=== PATIENT | male | born 1980 | race Hispanic/Latino ===

== ENCOUNTER 2019-10-04 11:33 | Emergency (ER) | payer MEDICARE ==
[2019-10-04 11:51] VITALS: BP 119/72
--- NOTE | 2019-10-04 12:25 | Emergency Department Report ---
ED Medical Clearance HPI - General Chief complaint: Medical Clearance Stated complaint: EVAL Time Seen by Provider: 10/04/19 12:03 Source: patient, EMS Mode of arrival: Ambulatory - History of Present Illness Initial comments: This is a 39-year-old male nontoxic, well nourished in appearance, no acute signs of distress presents to the ED for a medical clearance for [place]. Patient was sent to receive blood work and urine to be medically cleared. Denies any URI symptoms. Patient denies any suicidal or homicidal ideation. Patient otherwise denies any symptoms. Patient denies any chest pain, shortness of breath, fever, chills, nausea, vomiting, headache, stiff neck, numbness or tingling. Patient denies any psych conditions currently. MD Complaint: medical clearance request Alledged Intoxication: No Compliant with Home Medications: Yes Traumatic Symptoms: denies traumatic injury Associated Symptoms: denies other symptoms. denies: chest pain, shortness of breath, palpitations, diaphoresis, confusion, cough, fever/chills, headaches, an orexia, malaise, nausea/vomiting, rash, seizure, syncope, weakness Home medications: Previous Rx's Medication Instructions Recorded Last Taken Type FLUoxetine HCL [FLUoxetine] 20 mg PO DAILY #7 tablet 10/04/19 Unknown Rx OLANzapine [Zyprexa] 10 mg PO BID #14 tablet 10/04/19 Unknown Rx hydrOXYzine PAMOATE [Vistaril] 50 mg PO Q12H #14 capsule 10/04/19 Unknown Rx traZODone [Desyrel] 100 mg PO QHS #7 tablet 10/04/19 Unknown Rx Allergies/Adverse reactions: Allergies Allergy/AdvReac Type Severity Reaction Status Date / Time divalproex sodium Allergy Unknown Verified 10/04/19 11:45 [From [facility]] ED Review of Systems ROS: Stated complaint: EVAL Other details as noted in HPI Constitutional: denies: chills, fever Eyes: denies: eye pain, eye discharge, vision change ENT: denies: ear pain, throat pain Respiratory: denies: cough, shortness of breath, wheezing Cardiovascular: denies: chest pain, palpitations Endocrine: no symptoms reported Gastrointestinal: denies: abdominal pain, nausea, diarrhea Genitourinary: denies: urgency, dysuria Musculoskeletal: denies: back pain, joint swelling, arthralgia Skin: denies: rash, lesions Neurological: denies: headache, weakness, paresthesias Psychiatric: denies: anxiety, depression Hematological/Lymphatic: denies: easy bleeding, easy bruising ED Past Medical Hx - Past Medical History Previous Medical History?: No - Surgical History Past Surgical History?: No - Social History Smoking Status: Current Every Day Smoker - Medications Home Medications: Home Medications Medication Instructions Recorded Confirmed Last Taken Type FLUoxetine HCL [FLUoxetine] 20 mg PO DAILY #7 tablet 10/04/19 Unknown Rx OLANzapine [Zyprexa] 10 mg PO BID #14 tablet 10/04/19 Unknown Rx hydrOXYzine PAMOATE [Vistaril] 50 mg PO Q12H #14 capsule 10/04/19 Unknown Rx traZODone [Desyrel] 100 mg PO QHS #7 tablet 10/04/19 Unknown Rx ED Physical Exam - General Limitations: No Limitations General appearance: alert, in no apparent distress - Head Head exam: Present: atraumatic, normocephalic - Eye Eye exam: Present: normal appearance - Neck Neck exam: Present: normal inspection, full ROM. Absent: tenderness, meningismus, lymphadenopathy - Respiratory Respiratory exam: Present: normal lung sounds bilaterally. Absent: respiratory distress, wheezes, rales, rhonchi, stridor, chest wall tenderness, accessory muscle use, decreased breath sounds, prolonged expiratory - Cardiovascular Cardiovascular Exam: Present: regular rate, normal rhythm, normal heart sounds. Absent: irregular rhythm, systolic murmur, diastolic murmur, rubs, gallop - GI/Abdominal GI/Abdominal exam: Present: soft, normal bowel sounds. Absent: distended, tenderness, guarding, rebound, rigid, diminished bowel sounds - Extremities Exam Extremities exam: Present: normal inspection, full ROM, normal capillary refill. Absent: tenderness - Back Exam Back exam: Present: normal inspection, full ROM. Absent: tenderness, CVA tenderness (R), CVA tenderness (L), muscle spasm, paraspinal tenderness, vertebral tenderness, rash noted - Neurological Exam Neurological exam: Present: alert, oriented X3, normal gait - Psychiatric Psychiatric exam: Present: normal affect, normal mood - Skin Skin exam: Present: warm, dry, intact, normal color. Absent: rash ED Course Vital Signs 10/04/19 11:50 Temperature 98.2 F Pulse Rate 96 H Respiratory 18 Rate Blood Pressure 119/72 O2 Sat by Pulse 94 Oximetry - Reevaluation(s) Reevaluation #1: 10/04/19 12:29 Patient is speaking in full sentences with no signs of distress noted. ED Medical Decision Making - Lab Data Result diagrams: 10/04/19 12:11 10/04/19 12:11 - Medical Decision Making Patient presents with a medical clearance for [place]. Patient is stable and was examined by me. Marleny West Carroll from [place] has been contacted and was instructed patient is medically clear. Patient's labs are unremarkable. Urine obtained. Patient is not suicidal or homicidal ideation. Patient was instructed to follow-up with a primary care doctor in 3-5 days or if symptoms worsen and continue return to emergency room as soon as possible. At time of discharge, the patient does not seem toxic or ill in appearance. No acute signs of distress noted. Patient agrees to discharge treatment plan of care. No further questions noted by the patient. Patient requested for psych medication refill. Dr. Alvarez consulted and to prescribed for 1 week. ED Disposition Clinical Impression: Medical clearance for psychiatric admission Disposition: DC/TX-65 PSY HOSP/PSY UNIT Is pt being admited?: No Does the pt Need Aspirin: No Condition: Stable Additional Instructions: Follow-up with a primary care doctor in 3-5 days or if symptoms worsen and continue return to emergency room as soon as possible. Prescriptions: traZODone [Desyrel] 100 mg PO QHS #7 tablet FLUoxetine HCL [FLUoxetine] 20 mg PO DAILY #7 tablet hydrOXYzine PAMOATE [Vistaril] 50 mg PO Q12H #14 capsule OLANzapine [Zyprexa] 10 mg PO BID #14 tablet Referrals: BRAIN HONG MD [Primary Care Provider] - 3-5 Days DOUG BARRON MD [Staff Physician] - 3-5 Days
[2019-10-04 12:50] LABS: Basophils # (Auto) 0.1 K/mm3 (0.0-0.1); Basophils % (Auto) 0.9 % (0.0-1.8); Eosinophils # (Auto) 0.1 K/mm3 (0.0-0.4); Eosinophils % (Auto) 1.1 % (0.0-4.3); Lymphocytes # (Auto) 2.2 K/mm3 (1.2-5.4); Lymphocytes % (Auto) 29.6 % (13.4-35.0); Mean Corpuscular HGB Conc 35 % (32-34); Mean Corpuscular Volume 91 fl (84-94); Monocytes # (Auto) 0.8 K/mm3 (0.0-0.8); Monocytes % (Auto) 11.5 % (0.0-7.3); Platelet Count 185 K/mm3 (140-440); Red Blood Count 5.78 M/mm3 (3.65-5.03); Red Cell Distribution Width 13.5 % (13.2-15.2)
[2019-10-04 12:51] LABS: Hematocrit 52.4 % (35.5-45.6); Hemoglobin 18.5 gm/dl (11.8-15.2)
[2019-10-04 13:03] LABS: Bilirubin,Urine NEG (Negative); Blood,Urine NEG (Negative); Color,Urine Yellow (Yellow); Mucus,Urine 1+ /HPF; Protein,Urine <15 mg/dL mg/dL (Negative)
[2019-10-04 13:10] LABS: BUN/Creatinine Ratio 16; Blood Urea Nitrogen 11 mg/dL (9-20); Calcium 9.5 mg/dL (8.4-10.2); Hemolysis Index 10
[2019-10-04 13:11] LABS: Amphetamine Screen,Urine PRESUMPTIVE NEGATIVE; Benzodiazepines Screen,Urine PRESUMPTIVE NEGATIVE; Cannabinoid Screen,Urine PRESUMPTIVE NEGATIVE; Cocaine Screen,Urine PRESUMPTIVE NEGATIVE; Methadone Screen,Urine PRESUMPTIVE NEGATIVE; Opiate Screen,Urine PRESUMPTIVE NEGATIVE
== END 2019-10-04 15:31 ==
LOC: ED 11:33
DX: Z00.00 Encounter for general adult medical examination without abnormal findings (principal); Z79.899 Other long term (current) drug therapy; F17.200 Nicotine dependence, unspecified, uncomplicated; Z88.6 Allergy status to analgesic agent
CPT/HCPCS: 36415; 80048; 80307; 80320; 81001; 85025; G0480

== ENCOUNTER 2019-10-23 03:27 | Emergency (ER) | payer MEDICARE ==
[2019-10-23 04:46] LABS: BUN/Creatinine Ratio 14; Blood Urea Nitrogen 10 mg/dL (9-20); Calcium 9.3 mg/dL (8.4-10.2); Hemolysis Index 14
--- NOTE | 2019-10-23 04:46 | Emergency Department Report ---
<TIMMY AGUILAR - Last Filed: 10/23/19 05:09> ED Psych HPI - General Chief Complaint: Psych Stated Complaint: ANXIETY, COUGH Time Seen by Provider: 10/23/19 04:33 Source: patient, EMS, old records reviewed Mode of arrival: Ambulatory Limitations: No Limitations - History of Present Illness Initial Comments: Mr. Power is a 39 yo male who presents with "a mental breakdown". He informed nurse that he "needs to go to a mental hospital." He denies SI or HI. He denies hallucinations. Recenly, Mr. Power was referred to this ED for medical clearance in order to reside at the [facility]. Home Medications include: Fluoxetine Olanzapine Hydroxyzine Trazodone Complaint: other ("mental breakdown") -: unknown Associated Psychiatric Symptoms: none Quality: constant Improves With: none Worsens With: none Context: other (recently moved to assisted living facility) Treatments Prior to Arrival: none - Related Data Previous Rx's Medication Instructions Recorded Last Taken Type FLUoxetine HCL [FLUoxetine] 20 mg PO DAILY #7 tablet 10/04/19 Unknown Rx OLANzapine [Zyprexa] 10 mg PO BID #14 tablet 10/04/19 Unknown Rx hydrOXYzine PAMOATE [Vistaril] 50 mg PO Q12H #14 capsule 10/04/19 Unknown Rx traZODone [Desyrel] 100 mg PO QHS #7 tablet 10/04/19 Unknown Rx Allergies Allergy/AdvReac Type Severity Reaction Status Date / Time divalproex sodium Allergy Unknown Verified 10/04/19 11:45 [From Depakote] quetiapine [From Seroquel] Allergy Unknown Verified 10/23/19 03:43 ED Review of Systems Comment: All other systems reviewed and negative Constitutional: denies: fever, malaise Cardiovascular: denies: chest pain Gastrointestinal: denies: nausea Psychiatric: denies: auditory hallucinations, visual hallucinations, homicidal thoughts, suicidal thoughts ED Past Medical Hx - Past Medical History Previous Medical History?: No - Surgical History Past Surgical History?: No - Social History Smoking Status: Never Smoker Substance Use Type: None - Medications Home Medications: Home Medications Medication Instructions Recorded Confirmed Last Taken Type FLUoxetine HCL [FLUoxetine] 20 mg PO DAILY #7 tablet 10/04/19 Unknown Rx OLANzapine [Zyprexa] 10 mg PO BID #14 tablet 10/04/19 Unknown Rx hydrOXYzine PAMOATE [Vistaril] 50 mg PO Q12H #14 capsule 10/04/19 Unknown Rx traZODone [Desyrel] 100 mg PO QHS #7 tablet 10/04/19 Unknown Rx ED Physical Exam - General Limitations: No Limitations General appearance: alert, in no apparent distress - Head Head exam: Present: atraumatic, normocephalic - Eye Eye exam: Present: normal appearance - ENT ENT exam: Present: mucous membranes moist - Neck Neck exam: Present: normal inspection, full ROM - Respiratory Respiratory exam: Present: normal lung sounds bilaterally. Absent: respiratory distress, wheezes, rales, rhonchi - Cardiovascular Cardiovascular Exam: Present: regular rate, normal rhythm, normal heart sounds. Absent: systolic murmur, diastolic murmur, rubs, gallop - GI/Abdominal GI/Abdominal exam: Present: soft, normal bowel sounds. Absent: distended, tenderness, guarding, rebound - Rectal Rectal exam: Present: deferred - Extremities Exam Extremities exam: Present: normal inspection - Back Exam Back exam: Present: normal inspection - Neurological Exam Neurological exam: Present: alert, oriented X3 - Psychiatric Psychiatric exam: Present: normal mood - Skin Skin exam: Present: warm, dry, intact, normal color. Absent: rash ED Medical Decision Making - Lab Data Result diagrams: 10/23/19 04:02 10/23/19 04:02 - Medical Decision Making Mr. Power is calm, cooperative. Desires to sleep. Unclear why he desires to be admitted to inpatient psychiatric facility. He is currently medically clear for psychiatric care. Awaiting recommendations from our psychiatric team. I have reviewed labs which are within normal limits. ED Disposition Clinical Impression: Mental health disorder, Schizophrenia Disposition: DC-07 LEFT AGAINST MED ADVICE Condition: Stable Instructions: Cor Pulmonale (ED), Acute Gouty Arthritis (ED), Chronic Hypertension (ED), Hypertensive Crisis (ED) Referrals: PRIMARY CARE, [Primary Care Provider] - 3-5 Days <JUAN LINK - Last Filed: 10/24/19 11:44> ED Review of Systems ROS: Stated complaint: ANXIETY, COUGH Other details as noted in HPI ED Course Vital Signs 10/23/19 10/23/19 04:18 16:05 Temperature 97.1 F L 97.8 F Pulse Rate 69 72 Respiratory 16 18 Rate Blood Pressure 124/70 115/62 [Right] O2 Sat by Pulse 97 96 Oximetry ED Medical Decision Making - Lab Data Result diagrams: 10/23/19 04:02 10/23/19 04:02 - Medical Decision Making Patient is 39 years old male with no significant past medical history. Patient admitted to the ER for evaluation of mental health breakdown. Patient is currently denying any suicidal or homicidal ideation. Patient has been evaluated by our psychiatric team and advised patient to be discharge home and to follow-up as an outpatient. Patient is medically and psychiatrically stable for discharge. Critical care attestation.: If time is entered above; I have spent that time in minutes in the direct care of this critically ill patient, excluding procedure time. ED Disposition Is pt being admited?: No
[2019-10-23 04:49] LABS: Basophils # (Auto) 0.1 K/mm3 (0.0-0.1); Basophils % (Auto) 0.7 % (0.0-1.8); Eosinophils # (Auto) 0.2 K/mm3 (0.0-0.4); Eosinophils % (Auto) 1.5 % (0.0-4.3); Hematocrit 48.5 % (35.5-45.6); Hemoglobin 16.7 gm/dl (11.8-15.2); Lymphocytes # (Auto) 2.1 K/mm3 (1.2-5.4); Lymphocytes % (Auto) 20.1 % (13.4-35.0); Mean Corpuscular HGB Conc 34 % (32-34); Mean Corpuscular Volume 94 fl (84-94); Monocytes # (Auto) 0.8 K/mm3 (0.0-0.8); Monocytes % (Auto) 7.9 % (0.0-7.3); Platelet Count 181 K/mm3 (140-440); Red Blood Count 5.17 M/mm3 (3.65-5.03); Red Cell Distribution Width 13.8 % (13.2-15.2)
[2019-10-23 04:56] LABS: Amphetamine Screen,Urine PRESUMPTIVE NEGATIVE; Benzodiazepines Screen,Urine PRESUMPTIVE NEGATIVE; Cannabinoid Screen,Urine PRESUMPTIVE NEGATIVE; Cocaine Screen,Urine PRESUMPTIVE NEGATIVE; Methadone Screen,Urine PRESUMPTIVE NEGATIVE; Opiate Screen,Urine PRESUMPTIVE NEGATIVE
[2019-10-23 04:57] LABS: Bilirubin,Urine NEG (Negative); Blood,Urine NEG (Negative); Color,Urine Straw (Yellow); Protein,Urine <15 mg/dL mg/dL (Negative); Urobilinogen,Urine < 2.0 mg/dL (<2.0); WBC,Urine < 1.0 /HPF (0.0-6.0)
--- NOTE | 2019-10-23 11:53 | Emergency Department Report ---
ED General Adult HPI - General Chief complaint: Psych Stated complaint: ANXIETY, COUGH Time Seen by Provider: 10/23/19 04:33 Source: patient, EMS, old records reviewed Mode of arrival: Ambulatory Limitations: No Limitations - History of Present Illness Initial comments: Age start talking and I would usually just say get a this is a 39-year-old male with X, Y, and Z level of they are here for this they are here for that and just with heparin was due Severity scale (0 -10): 5 Quality: crushing Consistency: constant Improves with: cold therapy, eating (I did hit this your patient states that it only hurts when they are eating greasy foods) - Related Data Previous Rx's Medication Instructions Recorded Last Taken Type FLUoxetine HCL [FLUoxetine] 20 mg PO DAILY #7 tablet 10/04/19 Unknown Rx OLANzapine [Zyprexa] 10 mg PO BID #14 tablet 10/04/19 Unknown Rx hydrOXYzine PAMOATE [Vistaril] 50 mg PO Q12H #14 capsule 10/04/19 Unknown Rx traZODone [Desyrel] 100 mg PO QHS #7 tablet 10/04/19 Unknown Rx Allergies Allergy/AdvReac Type Severity Reaction Status Date / Time divalproex sodium Allergy Unknown Verified 10/04/19 11:45 [From Depakote] quetiapine [From Seroquel] Allergy Unknown Verified 10/23/19 03:43 ED Review of Systems ROS: Stated complaint: ANXIETY, COUGH Other details as noted in HPI Comment: All other systems reviewed and negative Constitutional: denies: fever, malaise Cardiovascular: denies: chest pain Gastrointestinal: denies: nausea Psychiatric: denies: auditory hallucinations, visual hallucinations, homicidal thoughts, suicidal thoughts ED Past Medical Hx - Past Medical History Previous Medical History?: No - Surgical History Past Surgical History?: No - Social History Smoking Status: Never Smoker Substance Use Type: None - Medications Home Medications: Home Medications Medication Instructions Recorded Confirmed Last Taken Type FLUoxetine HCL [FLUoxetine] 20 mg PO DAILY #7 tablet 10/04/19 Unknown Rx OLANzapine [Zyprexa] 10 mg PO BID #14 tablet 10/04/19 Unknown Rx hydrOXYzine PAMOATE [Vistaril] 50 mg PO Q12H #14 capsule 10/04/19 Unknown Rx traZODone [Desyrel] 100 mg PO QHS #7 tablet 10/04/19 Unknown Rx ED Physical Exam - General Limitations: No Limitations General appearance: alert, in no apparent distress - Head Head exam: Present: atraumatic, normocephalic - Eye Eye exam: Present: normal appearance, PERRL, EOMI. Absent: conjunctival injecti on, nystagmus, periorbital swelling, periorbital tenderness - ENT ENT exam: Present: mucous membranes moist - Neck Neck exam: Present: normal inspection - Respiratory Respiratory exam: Present: normal lung sounds bilaterally. Absent: respiratory distress, wheezes (The same time you know all all of these are pretty much gives you normal examination just), rales, rhonchi - Cardiovascular Cardiovascular Exam: Present: regular rate, normal rhythm. Absent: systolic murmur, diastolic murmur, rubs, gallop - GI/Abdominal GI/Abdominal exam: Present: soft, normal bowel sounds - Rectal Rectal exam: Present: deferred - Extremities Exam Extremities exam: Present: normal inspection - Back Exam Back exam: Present: normal inspection - Neurological Exam Neurological exam: Present: alert, oriented X3 - Psychiatric Psychiatric exam: Present: normal affect, normal mood - Skin Skin exam: Present: warm, dry, intact, normal color. Absent: rash ED Course Vital Signs 10/23/19 04:18 Temperature 97.1 F L Pulse Rate 69 Respiratory 16 Rate Blood Pressure 124/70 [Right] O2 Sat by Pulse 97 Oximetry ED Medical Decision Making - Lab Data Result diagrams: 10/23/19 04:02 10/23/19 04:02 Lab Results 10/23/19 10/23/19 10/23/19 Range/Units 04:02 04:02 04:02 WBC (4.5-11.0) K/mm3 RBC (3.65-5.03) M/mm3 Hgb (11.8-15.2) gm/dl Hct (35.5-45.6) % MCV (84-94) fl MCH (28-32) pg MCHC (32-34) % RDW (13.2-15.2) % Plt Count (140-440) K/mm3 Lymph % (Auto) (13.4-35.0) % Lake % (Auto) (0.0-7.3) % Eos % (Auto) (0.0-4.3) % Baso % (Auto) (0.0-1.8) % Lymph # (1.2-5.4) K/mm3 Lake # (0.0-0.8) K/mm3 Eos # (0.0-0.4) K/mm3 Baso # (0.0-0.1) K/mm3 Seg Neutrophils % (40.0-70.0) % Seg Neutrophils # (1.8-7.7) K/mm3 Sodium 138 (137-145) mmol/L Potassium 3.7 (3.6-5.0) mmol/L Chloride 99.2 (98-107) mmol/L Carbon Dioxide 26 (22-30) mmol/L Anion Gap 17 mmol/L BUN 10 (9-20) mg/dL Creatinine 0.7 L (0.8-1.5) mg/dL Estimated GFR > 60 ml/min BUN/Creatinine Ratio 14 % Glucose 92 (75-100) mg/dL Calcium 9.3 (8.4-10.2) mg/dL Urine Color (Yellow) Urine Turbidity (Clear) Urine pH (5.0-7.0) Ur Specific [place] (1.003-1.030) Urine Protein (Negative) mg/dL Urine Glucose (UA) (Negative) mg/dL Urine Ketones (Negative) mg/dL Urine Blood (Negative) Urine Nitrite (Negative) Urine Bilirubin (Negative) Urine Urobilinogen (<2.0) mg/dL Ur Leukocyte Esterase (Negative) Urine WBC (Auto) (0.0-6.0) /HPF Urine RBC (Auto) (0.0-6.0) /HPF Salicylates < 0.3 L (2.8-20.0) mg/dL Urine Opiates Screen Urine Methadone Screen Acetaminophen < 5.0 L (10.0-30.0) ug/mL Ur Barbiturates Screen Ur Phencyclidine Scrn Ur Amphetamines Screen U Benzodiazepines Scrn Urine Cocaine Screen U Marijuana (THC) Screen Drugs of Abuse Note Plasma/Serum Alcohol (0-0.07) % 10/23/19 10/23/19 10/23/19 Range/Units 04:02 04:02 04:24 WBC 10.5 (4.5-11.0) K/mm3 RBC 5.17 H (3.65-5.03) M/mm3 Hgb 16.7 H (11.8-15.2) gm/dl Hct 48.5 H (35.5-45.6) % MCV 94 (84-94) fl MCH 32 (28-32) pg MCHC 34 (32-34) % RDW 13.8 (13.2-15.2) % Plt Count 181 (140-440) K/mm3 Lymph % (Auto) 20.1 (13.4-35.0) % Lake % (Auto) 7.9 H (0.0-7.3) % Eos % (Auto) 1.5 (0.0-4.3) % Baso % (Auto) 0.7 (0.0-1.8) % Lymph # 2.1 (1.2-5.4) K/mm3 Lake # 0.8 (0.0-0.8) K/mm3 Eos # 0.2 (0.0-0.4) K/mm3 Baso # 0.1 (0.0-0.1) K/mm3 Seg Neutrophils % 69.8 (40.0-70.0) % Seg Neutrophils # 7.4 (1.8-7.7) K/mm3 Sodium (137-145) mmol/L Potassium (3.6-5.0) mmol/L Chloride (98-107) mmol/L Carbon Dioxide (22-30) mmol/L Anion Gap mmol/L BUN (9-20) mg/dL Creatinine (0.8-1.5) mg/dL Estimated GFR ml/min BUN/Creatinine Ratio % Glucose (75-100) mg/dL Calcium (8.4-10.2) mg/dL Urine Color Straw (Yellow) Urine Turbidity Clear (Clear) Urine pH 6.0 (5.0-7.0) Ur Specific [place] 1.004 (1.003-1.030) Urine Protein <15 mg/dl (Negative) mg/dL Urine Glucose (UA) Neg (Negative) mg/dL Urine Ketones Neg (Negative) mg/dL Urine Blood Neg (Negative) Urine Nitrite Neg (Negative) Urine Bilirubin Neg (Negative) Urine Urobilinogen < 2.0 (<2.0) mg/dL Ur Leukocyte Esterase Neg (Negative) Urine WBC (Auto) < 1.0 (0.0-6.0) /HPF Urine RBC (Auto) 3.0 (0.0-6.0) /HPF Salicylates (2.8-20.0) mg/dL Urine Opiates Screen Urine Methadone Screen Acetaminophen (10.0-30.0) ug/mL Ur Barbiturates Screen Ur Phencyclidine Scrn Ur Amphetamines Screen U Benzodiazepines Scrn Urine Cocaine Screen U Marijuana (THC) Screen Drugs of Abuse Note Plasma/Serum Alcohol < 0.01 (0-0.07) % 10/23/19 Range/Units 04:24 WBC (4.5-11.0) K/mm3 RBC (3.65-5.03) M/mm3 Hgb (11.8-15.2) gm/dl Hct (35.5-45.6) % MCV (84-94) fl MCH (28-32) pg MCHC (32-34) % RDW (13.2-15.2) % Plt Count (140-440) K/mm3 Lymph % (Auto) (13.4-35.0) % Lake % (Auto) (0.0-7.3) % Eos % (Auto) (0.0-4.3) % Baso % (Auto) (0.0-1.8) % Lymph # (1.2-5.4) K/mm3 [place] # (0.0-0.8) K/mm3 Eos # (0.0-0.4) K/mm3 Baso # (0.0-0.1) K/mm3 Seg Neutrophils % (40.0-70.0) % Seg Neutrophils # (1.8-7.7) K/mm3 Sodium (137-145) mmol/L Potassium (3.6-5.0) mmol/L Chloride (98-107) mmol/L Carbon Dioxide (22-30) mmol/L Anion Gap mmol/L BUN (9-20) mg/dL Creatinine (0.8-1.5) mg/dL Estimated GFR ml/min BUN/Creatinine Ratio % Glucose (75-100) mg/dL Calcium (8.4-10.2) mg/dL Urine Color (Yellow) Urine Turbidity (Clear) Urine pH (5.0-7.0) Ur Specific [place] (1.003-1.030) Urine Protein (Negative) mg/dL Urine Glucose (UA) (Negative) mg/dL Urine Ketones (Negative) mg/dL Urine Blood (Negative) Urine Nitrite (Negative) Urine Bilirubin (Negative) Urine Urobilinogen (<2.0) mg/dL Ur Leukocyte Esterase (Negative) Urine WBC (Auto) (0.0-6.0) /HPF Urine RBC (Auto) (0.0-6.0) /HPF Salicylates (2.8-20.0) mg/dL Urine Opiates Screen Presumptive negative Urine Methadone Screen Presumptive negative Acetaminophen (10.0-30.0) ug/mL Ur Barbiturates Screen Presumptive negative Ur Phencyclidine Scrn Presumptive negative Ur Amphetamines Screen Presumptive negative U Benzodiazepines Scrn Presumptive negative Urine Cocaine Screen Presumptive negative U Marijuana (THC) Screen Presumptive negative Drugs of Abuse Note Disclamer Plasma/Serum Alcohol (0-0.07) % - EKG Data -: EKG Interpreted by Ar EKG shows normal: sinus rhythm, axis, intervals, QRS complexes, ST-T waves Rate: normal - EKG Data Interpretation: normal EKG Critical Care Time: No Critical care attestation.: If time is entered above; I have spent that time in minutes in the direct care of this critically ill patient, excluding procedure time. ED Disposition Clinical Impression: Schizophrenia Disposition: DC-07 LEFT AGAINST MED ADVICE Condition: Stable Instructions: Cor Pulmonale (ED), Chronic Hypertension (ED), Hypertensive Crisis (ED), Acute Gouty Arthritis (ED) Referrals: PRIMARY CARE, [Primary Care Provider] - 3-5 Days - Level of Consciousness 1a. Level of Consciousness: alert/keenly responsive - LOC Questions 1b. LOC Questions: answers both correctly - LOC Command 1c. LOC Commands: performs tasks correctly - Best Gaze 2. Best Gaze: normal - Visual 3. Visual: partial hemianopia - Facial Palsy 4. Facial Palsy: minor paralysis - Motor Arm 5a. Motor Arm Left: drift 5b. Motor Arm Right: drift - Motor Leg 6a. Motor Leg Left: no drift 6b. Motor Leg Right: no movement - Limb Ataxia 7. Limb Ataxia: absent - Sensory 8. Sensory: normal - Best Language 9. Best Language: no aphasia - Dysarthria 10. Dysarthria: normal - Extinction and Inattention 11. Extinction/Inattention: no abnormality - Scoring Total Score: 8 Stroke Severity: Moderate Stroke
[2019-10-23 16:07] VITALS: BP 115/62
== END 2019-10-23 18:54 | disposition home or self-care (01) ==
LOC: ED 03:27 → EEVIPCON 03:27 → ED 18:54
DX: F20.89 Other schizophrenia (principal); F99 Mental disorder, not otherwise specified; Z88.6 Allergy status to analgesic agent; Z88.8 Allergy status to other drugs, medicaments and biological substances; Z79.899 Other long term (current) drug therapy
CPT/HCPCS: 36415; 80048; 80307; 80320; 81001; 85025; G0480

== ENCOUNTER 2019-11-14 03:56 | Emergency (ER) | payer MEDICARE ==
[2019-11-14 04:12] VITALS: BP 119/76
[2019-11-14 04:35] LABS: Basophils # (Auto) 0.1 K/mm3 (0.0-0.1); Basophils % (Auto) 1.1 % (0.0-1.8); Eosinophils # (Auto) 0.2 K/mm3 (0.0-0.4); Eosinophils % (Auto) 1.9 % (0.0-4.3); Hematocrit 46.9 % (35.5-45.6); Hemoglobin 16.4 gm/dl (11.8-15.2); Lymphocytes # (Auto) 2.1 K/mm3 (1.2-5.4); Lymphocytes % (Auto) 26.6 % (13.4-35.0); Mean Corpuscular HGB Conc 35 % (32-34); Mean Corpuscular Volume 93 fl (84-94); Monocytes # (Auto) 0.8 K/mm3 (0.0-0.8); Monocytes % (Auto) 10.1 % (0.0-7.3); Platelet Count 182 K/mm3 (140-440); Red Blood Count 5.06 M/mm3 (3.65-5.03); Red Cell Distribution Width 13.7 % (13.2-15.2)
--- NOTE | 2019-11-14 04:38 | Emergency Department Report ---
Chief Complaint: Psych Stated Complaint: MH Time Seen by Provider: 11/14/19 04:34 - HPI History of Present Illness: Patient is a 39-year-old male with schizophrenia who often goes missing who is presenting stated he was having a mental breakdown. When asked what his mental breakdown was he states "I could not stop crying" patient is currently not crying. Patient will not answer where he lives or who he stays with. Patient denies being homicidal suicidal at this time. Our entire conversation the patient was making his she is comfortable for him so that he could lie down and go to bed - ROS Review of Systems: All systems are reviewed and are negative - Exam Vital Signs: Vital Signs 11/14/19 04:00 Temperature 98.7 F Pulse Rate 90 Respiratory 18 Rate Blood Pressure 119/76 O2 Sat by Pulse 96 Oximetry Physical Exam: Patient is in no acute distress. Speaking in full sentences. Lungs clear to auscultation his heart tones are normal. Moving all extremities. MSE screening note: Focused history and physical exam performed. Due to findings the following was ordered: ED Medical Decision Making - Lab Data Result diagrams: 11/14/19 04:15 - Medical Decision Making Patient does not appear to be an mental health crisis at this time. We have contacted [facility] police to ensure that the patient is not missing. Patient will be held here until they arrive but will be discharged. ED Disposition for MSE Clinical Impression: Schizophrenia Qualifiers: Schizophrenia type: unspecified Qualified Code(s): F20.9 - Schizophrenia, unspecified Disposition: Z-07 MED SCREENING EXAM-LEFT Is pt being admited?: No Does the pt Need Aspirin: No Condition: Stable Referrals: PRIMARY CARE, [Primary Care Provider] - 3-5 Days Time of Disposition: 04:38
[2019-11-14 04:59] LABS: BUN/Creatinine Ratio 10; Blood Urea Nitrogen 7 mg/dL (9-20); Calcium 8.8 mg/dL (8.4-10.2); Hemolysis Index 12
== END 2019-11-14 05:05 | disposition left against medical advice (07) ==
LOC: ED 03:56
DX: F20.9 Schizophrenia, unspecified (principal); Z88.8 Allergy status to other drugs, medicaments and biological substances
CPT/HCPCS: 36415; 80048; 80320; 85025; G0480

== ENCOUNTER 2019-11-26 16:04 | Emergency (ER) | payer MEDICARE ==
[2019-11-26 16:09] VITALS: BP 127/76
== END 2019-11-26 17:02 | disposition left against medical advice (07) ==
LOC: ED 16:04
DX: R10.9 Unspecified abdominal pain (principal); Z00.00 Encounter for general adult medical examination without abnormal findings; F31.9 Bipolar disorder, unspecified; Z88.8 Allergy status to other drugs, medicaments and biological substances
CPT/HCPCS: 99282

== ENCOUNTER 2019-11-27 20:13 | Emergency (ER) | payer MEDICARE ==
[2019-11-27 20:56] LABS: Basophils # (Auto) 0.1 K/mm3 (0.0-0.1); Basophils % (Auto) 1.1 % (0.0-1.8); Eosinophils # (Auto) 0.2 K/mm3 (0.0-0.4); Eosinophils % (Auto) 2.2 % (0.0-4.3); Hematocrit 47.6 % (35.5-45.6); Hemoglobin 16.4 gm/dl (11.8-15.2); Lymphocytes # (Auto) 2.5 K/mm3 (1.2-5.4); Lymphocytes % (Auto) 28.8 % (13.4-35.0); Mean Corpuscular HGB Conc 34 % (32-34); Mean Corpuscular Volume 94 fl (84-94); Monocytes # (Auto) 0.8 K/mm3 (0.0-0.8); Monocytes % (Auto) 8.9 % (0.0-7.3); Platelet Count 185 K/mm3 (140-440); Red Blood Count 5.09 M/mm3 (3.65-5.03); Red Cell Distribution Width 13.6 % (13.2-15.2)
[2019-11-27 21:17] LABS: BUN/Creatinine Ratio 9; Blood Urea Nitrogen 6 mg/dL (9-20); Hemolysis Index 15
--- NOTE | 2019-11-27 22:43 | Emergency Department Report ---
<UMM AGUILAR - Last Filed: 11/27/19 22:41> ED Psych HPI - General Chief Complaint: Psych Stated Complaint: MH EVAL/HEARING VOICES Time Seen by Provider: 11/27/19 21:34 Source: patient Mode of arrival: Ambulatory - History of Present Illness Initial Comments: Patient is a 39-year-old male with a past medical history of schizophrenia who he has been off of his medications for several weeks. Patient is having visual and auditory hallucinations. Patient states he he is a loud sound of people crying and sees crying faces. Patient states he feels more confused. He is denying any homicidal suicidal ideations at this time. - Related Data Previous Rx's Medication Instructions Recorded Last Taken Type FLUoxetine HCL [FLUoxetine] 20 mg PO DAILY #7 tablet 10/04/19 Unknown Rx OLANzapine [Zyprexa] 10 mg PO BID #14 tablet 10/04/19 Unknown Rx hydrOXYzine PAMOATE [Vistaril] 50 mg PO Q12H #14 capsule 10/04/19 Unknown Rx traZODone [Desyrel] 100 mg PO QHS #7 tablet 10/04/19 Unknown Rx Allergies Allergy/AdvReac Type Severity Reaction Status Date / Time divalproex sodium Allergy Unknown Verified 10/04/19 11:45 [From Depakote] quetiapine [From Seroquel] Allergy Unknown Verified 10/23/19 03:43 risperidone [From Risperdal] Allergy Unknown Verified 11/27/19 20:16 ED Review of Systems Comment: All other systems reviewed and negative ED Past Medical Hx - Past Medical History Previous Medical History?: Yes Hx Psychiatric Treatment: Yes (bipolar, schizo) - Surgical History Past Surgical History?: No - Social History Smoking Status: Current Every Day Smoker - Medications Home Medications: Home Medications Medication Instructions Recorded Confirmed Last Taken Type FLUoxetine HCL [FLUoxetine] 20 mg PO DAILY #7 tablet 10/04/19 Unknown Rx OLANzapine [Zyprexa] 10 mg PO BID #14 tablet 10/04/19 Unknown Rx hydrOXYzine PAMOATE [Vistaril] 50 mg PO Q12H #14 capsule 10/04/19 Unknown Rx traZODone [Desyrel] 100 mg PO QHS #7 tablet 10/04/19 Unknown Rx ED Physical Exam - General Limitations: No Limitations General appearance: alert, in no apparent distress - Head Head exam: Present: atraumatic, normocephalic - Eye Eye exam: Present: normal appearance - ENT ENT exam: Present: mucous membranes moist - Neck Neck exam: Present: normal inspection - Respiratory Respiratory exam: Present: normal lung sounds bilaterally. Absent: respiratory distress - Cardiovascular Cardiovascular Exam: Present: regular rate, normal rhythm. Absent: systolic m urmur, diastolic murmur, rubs, gallop - GI/Abdominal GI/Abdominal exam: Present: soft, normal bowel sounds. Absent: distended, tenderness, guarding - Rectal Rectal exam: Present: deferred - Extremities Exam Extremities exam: Present: normal inspection - Back Exam Back exam: Present: normal inspection - Neurological Exam Neurological exam: Present: alert, oriented X3 - Psychiatric Psychiatric exam: Present: normal mood, flat affect - Skin Skin exam: Present: warm, dry, intact, normal color. Absent: rash ED Course - Reevaluation(s) Reevaluation #1: 11/27/19 22:42 Patient is a mental health hold at this time. ED Medical Decision Making - Lab Data Result diagrams: 11/27/19 20:41 11/27/19 20:41 Lab Results 11/27/19 11/27/19 11/27/19 Range/Units 20:41 20:41 20:41 WBC (4.5-11.0) K/mm3 RBC (3.65-5.03) M/mm3 Hgb (11.8-15.2) gm/dl Hct (35.5-45.6) % MCV (84-94) fl MCH (28-32) pg MCHC (32-34) % RDW (13.2-15.2) % Plt Count (140-440) K/mm3 Lymph % (Auto) (13.4-35.0) % [place] % (Auto) (0.0-7.3) % Eos % (Auto) (0.0-4.3) % Baso % (Auto) (0.0-1.8) % Lymph # (1.2-5.4) K/mm3 [place] # (0.0-0.8) K/mm3 Eos # (0.0-0.4) K/mm3 Baso # (0.0-0.1) K/mm3 Seg Neutrophils % (40.0-70.0) % Seg Neutrophils # (1.8-7.7) K/mm3 Sodium 135 L (137-145) mmol/L Potassium 3.7 (3.6-5.0) mmol/L Chloride 99.8 (98-107) mmol/L Carbon Dioxide 26 (22-30) mmol/L Anion Gap 13 mmol/L BUN 6 L (9-20) mg/dL Creatinine 0.7 L (0.8-1.5) mg/dL Estimated GFR > 60 ml/min BUN/Creatinine Ratio 9 % Glucose 89 (75-100) mg/dL Calcium 9.0 (8.4-10.2) mg/dL Salicylates < 0.3 L (2.8-20.0) mg/dL Acetaminophen < 5.0 L (10.0-30.0) ug/mL Plasma/Serum Alcohol (0-0.07) % 11/27/19 11/27/19 Range/Units 20:41 20:41 WBC 8.6 (4.5-11.0) K/mm3 RBC 5.09 H (3.65-5.03) M/mm3 Hgb 16.4 H (11.8-15.2) gm/dl Hct 47.6 H (35.5-45.6) % MCV 94 (84-94) fl MCH 32 (28-32) pg MCHC 34 (32-34) % RDW 13.6 (13.2-15.2) % Plt Count 185 (140-440) K/mm3 Lymph % (Auto) 28.8 (13.4-35.0) % [place] % (Auto) 8.9 H (0.0-7.3) % Eos % (Auto) 2.2 (0.0-4.3) % Baso % (Auto) 1.1 (0.0-1.8) % Lymph # 2.5 (1.2-5.4) K/mm3 [place] # 0.8 (0.0-0.8) K/mm3 Eos # 0.2 (0.0-0.4) K/mm3 Baso # 0.1 (0.0-0.1) K/mm3 Seg Neutrophils % 59.0 (40.0-70.0) % Seg Neutrophils # 5.1 (1.8-7.7) K/mm3 Sodium (137-145) mmol/L Potassium (3.6-5.0) mmol/L Chloride (98-107) mmol/L Carbon Dioxide (22-30) mmol/L Anion Gap mmol/L BUN (9-20) mg/dL Creatinine (0.8-1.5) mg/dL Estimated GFR ml/min BUN/Creatinine Ratio % Glucose (75-100) mg/dL Calcium (8.4-10.2) mg/dL Salicylates (2.8-20.0) mg/dL Acetaminophen (10.0-30.0) ug/mL Plasma/Serum Alcohol < 0.01 (0-0.07) % ED Disposition Clinical Impression: Schizophrenia, Homeless Disposition: - TO HOME OR SELFCARE Condition: Stable Instructions: Schizophrenia (ED) Additional Instructions: Take your current medications as prescribed. Follow-up with your doctor or doctor/clinic provided. Return if symptoms worsen as indicated by your disch arge instructions. Refer to additional mental health resources provided on separate handout. Referrals: PRIMARY CARE, [Primary Care Provider] - 3-5 Days [facility] [Outside] - 3-5 Days [facility] [Provider Group] - 3-5 Days <NAE HUITRON - Last Filed: 11/28/19 11:02> ED Review of Systems ROS: Stated complaint: MH EVAL/HEARING VOICES Other details as noted in HPI ED Course Vital Signs 11/27/19 11/28/19 11/28/19 21:25 02:03 07:31 Temperature 97.9 F 98.4 F 97.6 F Pulse Rate 67 63 70 Respiratory 17 16 20 Rate Blood Pressure 117/72 112/63 108/68 [Right] O2 Sat by Pulse 95 95 98 Oximetry ED Medical Decision Making - Lab Data Result diagrams: 11/27/19 20:41 11/27/19 20:41 - Medical Decision Making Patient seen and evaluated by mental health. Patient with schizophrenia and s tates hallucinations have improved. Patient does not meet 1013 criteria. Please refer to mental health manager support note. Patient will be discharged home to fill his current meds and follow-up as an outpatient. Critical Care Time: No Critical care attestation.: If time is entered above; I have spent that time in minutes in the direct care of this critically ill patient, excluding procedure time. ED Disposition Is pt being admited?: No Does the pt Need Aspirin: No Time of Disposition: 11:01
[2019-11-28] MEDS ORDERED: SODIUM CHLORIDE 0.9% 1000 ML 4,000 ML ONE (01:33)
[2019-11-28 13:45] VITALS: BP 108/68
== END 2019-11-28 11:23 | disposition home or self-care (01) ==
LOC: ED 20:13
DX: F20.9 Schizophrenia, unspecified (principal); F31.9 Bipolar disorder, unspecified; F17.200 Nicotine dependence, unspecified, uncomplicated; Z59.0 Homelessness; Z79.899 Other long term (current) drug therapy; Z88.8 Allergy status to other drugs, medicaments and biological substances
CPT/HCPCS: 36415; 80048; 85025; 99284; J7030; 80320; G0480

== ENCOUNTER 2019-12-05 02:58 | Emergency (ER) | payer MEDICARE ==
[2019-12-05 03:10] VITALS: BP 126/64
[2019-12-05] MEDS ORDERED: ONDANSETRON 4 MG ODT TAB PO ONE (04:02)
[2019-12-05 04:16] LABS: Bilirubin,Urine NEG (Negative); Blood,Urine NEG (Negative); Color,Urine Colorless (Yellow); Protein,Urine <15 mg/dL mg/dL (Negative); RBC,Urine < 1.0 /HPF (0.0-6.0); Urobilinogen,Urine < 2.0 mg/dL (<2.0)
[2019-12-05 04:19] LABS: Basophils # (Auto) 0.1 K/mm3 (0.0-0.1); Basophils % (Auto) 0.7 % (0.0-1.8); Eosinophils # (Auto) 0.1 K/mm3 (0.0-0.4); Eosinophils % (Auto) 1.3 % (0.0-4.3); Hematocrit 50.4 % (35.5-45.6); Hemoglobin 17.6 gm/dl (11.8-15.2); Lymphocytes # (Auto) 2.1 K/mm3 (1.2-5.4); Lymphocytes % (Auto) 22.1 % (13.4-35.0); Mean Corpuscular HGB Conc 35 % (32-34); Mean Corpuscular Volume 93 fl (84-94); Monocytes # (Auto) 0.8 K/mm3 (0.0-0.8); Monocytes % (Auto) 8.1 % (0.0-7.3); Platelet Count 194 K/mm3 (140-440); Red Blood Count 5.45 M/mm3 (3.65-5.03); Red Cell Distribution Width 13.4 % (13.2-15.2)
[2019-12-05 04:41] LABS: Alanine Aminotransferase 10 units/L (7-56); Albumin 4.1 g/dL (3.9-5); BUN/Creatinine Ratio 10; Blood Urea Nitrogen 7 mg/dL (9-20); Calcium 9.3 mg/dL (8.4-10.2); Hemolysis Index 22
[2019-12-05 04:55] LABS: WBC,Urine < 1.0 /HPF (0.0-6.0)
--- NOTE | 2019-12-05 04:59 | Emergency Department Report ---
ED General Adult HPI - General Chief complaint: Abdominal Pain Stated complaint: ABDOMINAL PAIN Time Seen by Provider: 12/05/19 03:48 Source: patient Mode of arrival: Ambulatory Limitations: No Limitations - History of Present Illness Initial comments: Patient is a 39-year-old male presents emergency room with complaints of nausea vomiting that began 3 days ago. He states he is able to tolerate p.o. intake. He denies any diarrhea, abdominal pain, urinary symptoms, fever, hematemesis, hematochezia, melena. He states he had a normal bowel movement today. He denies any past medical history. He states he does not have any allergies to medications. - Related Data Previous Rx's Medication Instructions Recorded Last Taken Type FLUoxetine HCL [FLUoxetine] 20 mg PO DAILY #7 tablet 10/04/19 Unknown Rx OLANzapine [Zyprexa] 10 mg PO BID #14 tablet 10/04/19 Unknown Rx hydrOXYzine PAMOATE [Vistaril] 50 mg PO Q12H #14 capsule 10/04/19 Unknown Rx traZODone [Desyrel] 100 mg PO QHS #7 tablet 10/04/19 Unknown Rx Ondansetron [Zofran Odt] 4 mg PO Q8HR PRN #10 tab.rapdis 12/05/19 Unknown Rx Allergies Allergy/AdvReac Type Severity Reaction Status Date / Time divalproex sodium Allergy Unknown Verified 10/04/19 11:45 [From Depakote] quetiapine [From Seroquel] Allergy Unknown Verified 10/23/19 03:43 risperidone [From Risperdal] Allergy Unknown Verified 11/27/19 20:16 ED Review of Systems ROS: Stated complaint: ABDOMINAL PAIN Other details as noted in HPI Comment: All other systems reviewed and negative ED Past Medical Hx - Past Medical History Previous Medical History?: Yes Hx Psychiatric Treatment: Yes (bipolar, schizo) - Surgical History Past Surgical History?: No - Social History Smoking Status: Current Every Day Smoker Substance Use Type: Alcohol - Medications Home Medications: Home Medications Medication Instructions Recorded Confirmed Last Taken Type FLUoxetine HCL [FLUoxetine] 20 mg PO DAILY #7 tablet 10/04/19 Unknown Rx OLANzapine [Zyprexa] 10 mg PO BID #14 tablet 10/04/19 Unknown Rx hydrOXYzine PAMOATE [Vistaril] 50 mg PO Q12H #14 capsule 10/04/19 Unknown Rx traZODone [Desyrel] 100 mg PO QHS #7 tablet 10/04/19 Unknown Rx Ondansetron [Zofran Odt] 4 mg PO Q8HR PRN #10 tab.rapdis 12/05/19 Unknown Rx ED Physical Exam - General Limitations: No Limitations General appearance: alert, in no apparent distress - Head Head exam: Present: atraumatic, normocephalic - Eye Eye exam: Present: normal appearance - ENT ENT exam: Present: mucous membranes moist - Respiratory Respiratory exam: Present: normal lung sounds bilaterally. Absent: respiratory distress, wheezes, rales, rhonchi, stridor, chest wall tenderness, accessory muscle use, decreased breath sounds, prolonged expiratory - Cardiovascular Cardiovascular Exam: Present: regular rate, normal rhythm, normal heart sounds. Absent: systolic murmur, diastolic murmur, rubs, gallop - GI/Abdominal GI/Abdominal exam: Present: soft, normal bowel sounds. Absent: distended, tenderness, guarding, rebound, rigid - Neurological Exam Neurological exam: Present: alert, oriented X3 - Psychiatric Psychiatric exam: Present: normal affect, normal mood - Skin Skin exam: Present: warm, dry, intact ED Course Vital Signs 12/05/19 12/05/19 03:05 05:29 Temperature 98.1 F Pulse Rate 95 H 85 Respiratory 18 17 Rate Blood Pressure 126/64 O2 Sat by Pulse 96 99 Oximetry ED Medical Decision Making - Lab Data Result diagrams: 12/05/19 03:37 12/05/19 03:37 Lab Results 12/05/19 12/05/19 12/05/19 Range/Units 03:37 03:37 03:41 WBC 9.7 (4.5-11.0) K/mm3 RBC 5.45 H (3.65-5.03) M/mm3 Hgb 17.6 H (11.8-15.2) gm/dl Hct 50.4 H (35.5-45.6) % MCV 93 (84-94) fl MCH 32 (28-32) pg MCHC 35 H (32-34) % RDW 13.4 (13.2-15.2) % Plt Count 194 (140-440) K/mm3 Lymph % (Auto) 22.1 (13.4-35.0) % [place] % (Auto) 8.1 H (0.0-7.3) % Eos % (Auto) 1.3 (0.0-4.3) % Baso % (Auto) 0.7 (0.0-1.8) % Lymph # 2.1 (1.2-5.4) K/mm3 [place] # 0.8 (0.0-0.8) K/mm3 Eos # 0.1 (0.0-0.4) K/mm3 Baso # 0.1 (0.0-0.1) K/mm3 Seg Neutrophils % 67.8 (40.0-70.0) % Seg Neutrophils # 6.6 (1.8-7.7) K/mm3 Sodium 136 L (137-145) mmol/L Potassium 3.7 (3.6-5.0) mmol/L Chloride 99.7 (98-107) mmol/L Carbon Dioxide 23 (22-30) mmol/L Anion Gap 17 mmol/L BUN 7 L (9-20) mg/dL Creatinine 0.7 L (0.8-1.5) mg/dL Estimated GFR > 60 ml/min BUN/Creatinine Ratio 10 % Glucose 83 (75-100) mg/dL Calcium 9.3 (8.4-10.2) mg/dL Total Bilirubin 0.70 (0.1-1.2) mg/dL AST 28 (5-40) units/L ALT 10 (7-56) units/L Alkaline Phosphatase 112 (35-129) units/L Total Protein 7.8 (6.3-8.2) g/dL Albumin 4.1 (3.9-5) g/dL Albumin/Globulin Ratio 1.1 % Lipase (13-60) units/L Urine Color Colorless (Yellow) Urine Turbidity Clear (Clear) Urine pH 6.0 (5.0-7.0) Ur Specific [place] 1.001 L (1.003-1.030) Urine Protein <15 mg/dl (Negative) mg/dL Urine Glucose (UA) Neg (Negative) mg/dL Urine Ketones Neg (Negative) mg/dL Urine Blood Neg (Negative) Urine Nitrite Neg (Negative) Urine Bilirubin Neg (Negative) Urine Urobilinogen < 2.0 (<2.0) mg/dL Ur Leukocyte Esterase Neg (Negative) Urine WBC (Auto) < 1.0 (0.0-6.0) /HPF Urine RBC (Auto) < 1.0 (0.0-6.0) /HPF 12/05/19 Range/Units 04:04 WBC (4.5-11.0) K/mm3 RBC (3.65-5.03) M/mm3 Hgb (11.8-15.2) gm/dl Hct (35.5-45.6) % MCV (84-94) fl MCH (28-32) pg MCHC (32-34) % RDW (13.2-15.2) % Plt Count (140-440) K/mm3 Lymph % (Auto) (13.4-35.0) % [place] % (Auto) (0.0-7.3) % Eos % (Auto) (0.0-4.3) % Baso % (Auto) (0.0-1.8) % Lymph # (1.2-5.4) K/mm3 [place] # (0.0-0.8) K/mm3 Eos # (0.0-0.4) K/mm3 Baso # (0.0-0.1) K/mm3 Seg Neutrophils % (40.0-70.0) % Seg Neutrophils # (1.8-7.7) K/mm3 Sodium (137-145) mmol/L Potassium (3.6-5.0) mmol/L Chloride (98-107) mmol/L Carbon Dioxide (22-30) mmol/L Anion Gap mmol/L BUN (9-20) mg/dL Creatinine (0.8-1.5) mg/dL Estimated GFR ml/min BUN/Creatinine Ratio % Glucose (75-100) mg/dL Calcium (8.4-10.2) mg/dL Total Bilirubin (0.1-1.2) mg/dL AST (5-40) units/L ALT (7-56) units/L Alkaline Phosphatase (35-129) units/L Total Protein (6.3-8.2) g/dL Albumin (3.9-5) g/dL Albumin/Globulin Ratio % Lipase 26 (13-60) units/L Urine Color (Yellow) Urine Turbidity (Clear) Urine pH (5.0-7.0) Ur Specific [place] (1.003-1.030) Urine Protein (Negative) mg/dL Urine Glucose (UA) (Negative) mg/dL Urine Ketones (Negative) mg/dL Urine Blood (Negative) Urine Nitrite (Negative) Urine Bilirubin (Negative) Urine Urobilinogen (<2.0) mg/dL Ur Leukocyte Esterase (Negative) Urine WBC (Auto) (0.0-6.0) /HPF Urine RBC (Auto) (0.0-6.0) /HPF - Medical Decision Making Patient is a 39-year-old male presents emergency room with complaints of nausea vomiting that began 3 days ago. He states he is able to tolerate p.o. intake. He denies any diarrhea, abdominal pain, urinary symptoms, fever, hematemesis, hematochezia, melena. He states he had a normal bowel movement today. He denies any past medical history. He states he does not have any allergies to medications. Vitals are normal. On exam no abdominal tenderness to palpation, no guarding, no rebound, no rigidity, no peritoneal signs, normal bowel sounds. Mucous membranes are moist. Labs are stable. UA without signs of UTI or dehydration. Patient given Zofran ODT. Patient had no further episodes of vomiting while in the emergency department was able to tolerate p.o. intake without difficulty. pt given prescription for zofran. advised pt Please take medication as prescribed as needed. Increase your water intake. Eat a bland diet. Follow-up with a primary care doctor. Follow-up with a GI doctor. Return to the emergency room for any new or worsening symptoms. - Differential Diagnosis gastritis, PUD, GERD, dehydration, pancreatitis, electrolyte disturbance Critical care attestation.: If time is entered above; I have spent that time in minutes in the direct care of this critically ill patient, excluding procedure time. ED Disposition Clinical Impression: Nausea & vomiting Qualifiers: Vomiting type: unspecified Vomiting Intractability: non-intractable Qualified Code(s): R11.2 - Nausea with vomiting, unspecified Disposition: DC-01 TO HOME OR SELFCARE Is pt being admited?: No Does the pt Need Aspirin: No Condition: Stable Instructions: Gastritis (ED) Additional Instructions: Please take medication as prescribed as needed. Increase your water intake. Eat a bland diet. Follow-up with a primary care doctor. Follow-up with a GI doctor. Return to the emergency room for any new or worsening symptoms. Prescriptions: Ondansetron [Zofran Odt] 4 mg PO Q8HR PRN #10 tab.rapdis PRN Reason: Nausea And Vomiting Referrals: DOUG BARRON MD [Staff Physician] - 2-3 Days [facility] [Provider Group] - 2-3 Days [facility] [Outside] - 2-3 Days [facility] [Provider Group] - 2-3 Days Time of Disposition: 04:58 Print Language: BULGARIAN
== END 2019-12-05 05:29 | disposition home or self-care (01) ==
LOC: ED 02:58
DX: R11.2 Nausea with vomiting, unspecified (principal); F25.0 Schizoaffective disorder, bipolar type; Z79.899 Other long term (current) drug therapy; Z88.8 Allergy status to other drugs, medicaments and biological substances; F17.200 Nicotine dependence, unspecified, uncomplicated
CPT/HCPCS: 36415; 80053; 81001; 83690; 85025; Q0162

== ENCOUNTER 2019-12-16 17:51 | Emergency (ER) | payer MEDICARE ==
[2019-12-16 17:57] VITALS: BP 106/60
== END 2019-12-16 19:06 | disposition left against medical advice (07) ==
LOC: ED 17:51
DX: R69 Illness, unspecified (principal); Z53.21 Procedure and treatment not carried out due to patient leaving prior to being seen by health care provider

== ENCOUNTER 2020-04-13 22:38 | Emergency (ER) | payer MEDICARE | END 2020-04-14 00:25 | disposition left against medical advice (07) | LOC: ED 22:38 | DX: Z53.21 Procedure and treatment not carried out due to patient leaving prior to being seen by health care provider (principal) ==

== ENCOUNTER 2020-05-01 01:48 | Emergency (ER) | payer SELFPAY ==
--- NOTE | 2020-05-01 06:48 | Emergency Department Report ---
HPI - General Chief Complaint: Medical Clearance Time Seen by Provider: 05/01/20 06:33 - HPI HPI: This is a 40-year-old male who presents to the emergency department via EMS for alleged suicidal ideations. The patient was brought in by [place] [id number] after they responded to a local [employer] for the complaint of a 40-year-old male complaining of suicidal ideations. PD was also called out at this location. At that time the reports say that the patient advised that he did have suicidal thoughts but did not have any plan in motion. He has a past medical history of bipolar disorder and schizophrenia. At that time he was found AAO x3, GCS of 15. Patient arrived to the emergency department a little before 2 AM, well before my shift began. At the time of my initial examination the patient is arousable but is very sleepy and is not forthcoming with information. Patient denies any alcohol or drugs on board. ED Past Medical Hx - Past Medical History Previous Medical History?: Yes Hx Psychiatric Treatment: Yes (bipolar, schizo) - Surgical History Past Surgical History?: No - Social History Smoking Status: Never Smoker Substance Use Type: None - Medications Home Medications: Home Medications Medication Instructions Recorded Confirmed Last Taken Type FLUoxetine HCL [FLUoxetine] 20 mg PO DAILY #7 tablet 10/04/19 Unknown Rx OLANzapine [Zyprexa] 10 mg PO BID #14 tablet 10/04/19 Unknown Rx hydrOXYzine PAMOATE [Vistaril] 50 mg PO Q12H #14 capsule 10/04/19 Unknown Rx traZODone [Desyrel] 100 mg PO QHS #7 tablet 10/04/19 Unknown Rx Ondansetron [Zofran Odt] 4 mg PO Q8HR PRN #10 tab.rapdis 12/05/19 Unknown Rx ED Review of Systems ROS: Stated complaint: CHEST PAIN HEARING VOICES Other details as noted in HPI Comment: Unobtainable due to pts medical conditions Physical Exam - Physical Exam Physical Exam: GENERAL: The patient is well-developed well-nourished. HENT: Normocephalic. Atraumatic. Patient has moist mucous membranes. EYES: Extraocular motions are intact. NECK: Supple. Trachea is midline. CHEST/LUNGS: Clear to auscultation. There is no respiratory distress noted. HEART/CARDIOVASCULAR: Regular. There is no tachycardia. ABDOMEN: Abdomen is soft, nontender. Patient has normal bowel sounds. SKIN: Skin is warm and dry. NEURO: The patient is awake, alert, and oriented. The patient is cooperative. Normal speech. MUSCULOSKELETAL: There is no tenderness or deformity. There is no limitation range of motion. ED Medical Decision Making - Lab Data Result diagrams: 05/01/20 06:47 05/01/20 06:47 - Medical Decision Making This patient presents for a mental health evaluation. He does have a psychiatric history but at this time he is calm and appropriate. He has no complaints of suicidal or homicidal ideations. He does not express any acute psychosis. He was seen by the mental health assessment team who agrees that he does not meet criteria for a 1013 or inpatient stabilization. Labs have been unremarkable including CBC, metabolic panel, blood alcohol level. Vital signs have been reassuring throughout his ED course. Critical Care Time: No Critical care attestation.: If time is entered above; I have spent that time in minutes in the direct care of this critically ill patient, excluding procedure time. ED Disposition Clinical Impression: Medical clearance for psychiatric admission, Discharge planning issues, No abnormality detected on mental health assessment Disposition: DC-01 TO HOME OR SELFCARE Is pt being admited?: No Condition: Stable Additional Instructions: Outpatient [facility] Behavioral Health Resources: [facility] [address] [place] [address] / Tuesday thru Tuesday - 8am - 5pm [facility] Address: [address] [place] [address] Tuesday thru Tuesday- 7am-2pm [facility] Address: [address] [place] [address] Tuesday thru Tuesday: 8:30AM-5PM HOMELESS RESOURCES: [facility] NEED HELP? If you are in need of help or know someone who does, please contact us [email or web address] call , or come to our offices at [address] [place] [id number], Tuesday-Tuesday beginning at 8AM. [facility] Admission at 7am Tue to Tue Address: [place] [address] Client Engagement [phone] Regular program admission occurs Tuesday through Tuesday at 7:00 amand operates on a first come, first serve basis.Because we cant anticipate program availability in advance andprogram spots are in high demand, we recommend arriving early. Space fills up fast! Next steps can include: Assignment to a [facility] program bed Connection to and placement in a partner program, or Referral to a partner agency [facility] [place] Admission at 4:30pm daily Address: [place] [address] CRISIS RESOURCES [place] Crisis Line: Suicide Prevention Line: Crisis Text Line: Text START to [phone] Emergency: 911 Referrals: [facility] [Outside] - 2-3 Days [facility] [Provider Group] - 2-3 Days Time of Disposition: 08:32
[2020-05-01 07:21] LABS: Basophils # (Auto) 0.1 K/mm3 (0.0-0.1); Eosinophils # (Auto) 0.2 K/mm3 (0.0-0.4); Eosinophils % (Auto) 2.8 % (0.0-4.3); Hematocrit 42.8 % (35.5-45.6); Hemoglobin 14.4 gm/dl (11.8-15.2); Lymphocytes # (Auto) 2.2 K/mm3 (1.2-5.4); Lymphocytes % (Auto) 30.2 % (13.4-35.0); Mean Corpuscular HGB Conc 34 % (32-34); Mean Corpuscular Volume 92 fl (84-94); Monocytes # (Auto) 0.6 K/mm3 (0.0-0.8); Monocytes % (Auto) 8.6 % (0.0-7.3); Platelet Count 163 K/mm3 (140-440); Red Blood Count 4.67 M/mm3 (3.65-5.03)
[2020-05-01 07:37] LABS: Blood Urea Nitrogen 6 mg/dL (9-20); Calcium 8.9 mg/dL (8.4-10.2); Hemolysis Index 3
[2020-05-01 07:45] VITALS: BP 115/49
[2020-05-01 08:12] LABS: BUN/Creatinine Ratio 9
== END 2020-05-01 09:45 | disposition home or self-care (01) ==
LOC: ED 01:48
DX: R45.851 Suicidal ideations (principal); F25.0 Schizoaffective disorder, bipolar type; Z79.899 Other long term (current) drug therapy; Z04.6 Encounter for general psychiatric examination, requested by authority; Z75.1 Person awaiting admission to adequate facility elsewhere; Z88.8 Allergy status to other drugs, medicaments and biological substances
CPT/HCPCS: 36415; 80048; 80320; 85025; G0480

== ENCOUNTER 2020-05-08 00:43 | Emergency (ER) | payer MEDICAID ==
[2020-05-08 01:13] VITALS: BP 115/60
--- NOTE | 2020-05-08 04:54 | XRay Report ---
CHEST 2 VIEWS INDICATION / CLINICAL INFORMATION: CHEST PAIN. COMPARISON: 12/13/2019 FINDINGS: SUPPORT DEVICES: None. HEART / MEDIASTINUM: No significant abnormality. LUNGS / PLEURA: No significant pulmonary or pleural abnormality. No pneumothorax. ADDITIONAL FINDINGS: No significant additional findings. IMPRESSION: 1. No acute findings. Signer Name: Rakesh Barrett MD Signed: 05/08/2020 4:49 AM Workstation Name: [id number]
--- NOTE | 2020-05-08 06:50 | Emergency Department Report ---
ED General Adult HPI - General Chief complaint: Chest Pain Stated complaint: BILATERAL ARM PAIN Time Seen by Provider: 05/08/20 05:59 Source: patient, EMS Mode of arrival: Ambulatory Limitations: No Limitations - History of Present Illness Initial comments: 40-year-old very thin male presents emerged department complaint complaining of chest pain on his left and right side which tends to fluctuate been off and on for the past few weeks unknown characteristic that he is unable to explain associated with no palliative or provocative factors. Associated Symptoms: chest pain. denies: diaphoresis, fever/chills, loss of appetite, nausea/vomiting, shortness of breath, syncope - Related Data Previous Rx's Medication Instructions Recorded Last Taken Type FLUoxetine HCL [FLUoxetine] 20 mg PO DAILY #7 tablet 10/04/19 Unknown Rx OLANzapine [Zyprexa] 10 mg PO BID #14 tablet 10/04/19 Unknown Rx hydrOXYzine PAMOATE [Vistaril] 50 mg PO Q12H #14 capsule 10/04/19 Unknown Rx traZODone [Desyrel] 100 mg PO QHS #7 tablet 10/04/19 Unknown Rx Ondansetron [Zofran Odt] 4 mg PO Q8HR PRN #10 tab.rapdis 12/05/19 Unknown Rx Allergies Allergy/AdvReac Type Severity Reaction Status Date / Time divalproex sodium Allergy Unknown Verified 12/16/19 17:52 [From Depakote] quetiapine [From Seroquel] Allergy Unknown Verified 12/16/19 17:52 risperidone [From Risperdal] Allergy Unknown Verified 12/16/19 17:52 ED Review of Systems ROS: Stated complaint: BILATERAL ARM PAIN Other details as noted in HPI Comment: All other systems reviewed and negative ED Past Medical Hx - Past Medical History Hx Psychiatric Treatment: Yes (bipolar, schizo) - Social History Smoking Status: Current Every Day Smoker - Medications Home Medications: Home Medications Medication Instructions Recorded Confirmed Last Taken Type FLUoxetine HCL [FLUoxetine] 20 mg PO DAILY #7 tablet 10/04/19 Unknown Rx OLANzapine [Zyprexa] 10 mg PO BID #14 tablet 10/04/19 Unknown Rx hydrOXYzine PAMOATE [Vistaril] 50 mg PO Q12H #14 capsule 10/04/19 Unknown Rx traZODone [Desyrel] 100 mg PO QHS #7 tablet 10/04/19 Unknown Rx Ondansetron [Zofran Odt] 4 mg PO Q8HR PRN #10 tab.rapdis 12/05/19 Unknown Rx ED Physical Exam - General Limitations: No Limitations General appearance: alert, in no apparent distress - Head Head exam: Present: atraumatic, normocephalic - Eye Eye exam: Present: normal appearance - ENT ENT exam: Present: mucous membranes moist - Neck Neck exam: Present: normal inspection - Respiratory Respiratory exam: Present: normal lung sounds bilaterally. Absent: respiratory distress - Cardiovascular Cardiovascular Exam: Present: regular rate, normal rhythm. Absent: systolic murmur, diastolic murmur, rubs, gallop - GI/Abdominal GI/Abdominal exam: Present: soft, normal bowel sounds - Rectal Rectal exam: Present: deferred - Extremities Exam Extremities exam: Present: normal inspection - Back Exam Back exam: Present: normal inspection - Neurological Exam Neurological exam: Present: alert, oriented X3 - Psychiatric Psychiatric exam: Present: normal affect, normal mood - Skin Skin exam: Present: warm, dry, intact, normal color. Absent: rash ED Course Vital Signs 05/08/20 01:07 Temperature 97.6 F Pulse Rate 64 Respiratory 18 Rate Blood Pressure 115/60 O2 Sat by Pulse 97 Oximetry Critical care attestation.: If time is entered above; I have spent that time in minutes in the direct care of this critically ill patient, excluding procedure time. ED Disposition Disposition: - TO HOME OR SELFCARE Condition: Stable Instructions: Nonspecific Chest Pain, Adult, Chest Pain (ED) Referrals: PRIMARY CARE, [Primary Care Provider] - 3-5 Days
== END 2020-05-08 06:40 | disposition home or self-care (01) ==
LOC: ED 00:43
DX: R07.89 Other chest pain (principal); M79.602 Pain in left arm; M79.601 Pain in right arm; F20.9 Schizophrenia, unspecified; F31.9 Bipolar disorder, unspecified; F17.200 Nicotine dependence, unspecified, uncomplicated; Z79.899 Other long term (current) drug therapy; Z88.8 Allergy status to other drugs, medicaments and biological substances
CPT/HCPCS: 71046; 93005

== ENCOUNTER 2020-05-08 23:13 | Emergency (ER) | payer MEDICAID | END 2020-05-08 23:30 | disposition left against medical advice (07) | LOC: ED 23:13 | DX: R07.89 Other chest pain (principal); Z53.21 Procedure and treatment not carried out due to patient leaving prior to being seen by health care provider ==

== ENCOUNTER 2020-05-11 01:44 | Emergency (ER) | payer MEDICAID ==
[2020-05-11 02:46] VITALS: BP 116/63
== END 2020-05-11 07:46 | disposition left against medical advice (07) ==
LOC: ED 01:44
DX: R51.9 Headache, unspecified (principal); Z53.21 Procedure and treatment not carried out due to patient leaving prior to being seen by health care provider

== ENCOUNTER 2020-05-13 04:33 | Emergency (ER) | payer MEDICAID ==
[2020-05-13 05:44] VITALS: BP 120/68
== END 2020-05-13 07:11 ==
LOC: ED 04:33
DX: R07.9 Chest pain, unspecified (principal); Z53.21 Procedure and treatment not carried out due to patient leaving prior to being seen by health care provider

== ENCOUNTER 2020-05-28 19:56 | Emergency (ER) | payer MEDICAID ==
[2020-05-28 21:04] VITALS: BP 126/76
== END 2020-05-28 23:10 | disposition left against medical advice (07) ==
LOC: ED 19:56
DX: R10.9 Unspecified abdominal pain (principal); Z53.21 Procedure and treatment not carried out due to patient leaving prior to being seen by health care provider

== ENCOUNTER 2020-05-30 08:26 | Emergency (ER) | payer MEDICAID ==
[2020-05-30 08:32] VITALS: BP 126/68
== END 2020-05-30 08:30 | disposition left against medical advice (07) ==
LOC: ED 08:26
DX: R10.9 Unspecified abdominal pain (principal); Z53.21 Procedure and treatment not carried out due to patient leaving prior to being seen by health care provider

== ENCOUNTER 2020-08-18 03:57 | Emergency (ER) | payer MEDICARE | END 2020-08-18 04:05 | disposition left against medical advice (07) | LOC: ED 03:57 | DX: Z53.21 Procedure and treatment not carried out due to patient leaving prior to being seen by health care provider (principal) ==

== ENCOUNTER 2020-08-18 14:15 | Emergency (ER) | payer MEDICARE | END 2020-08-18 15:51 | disposition left against medical advice (07) | LOC: ED 14:15 | DX: M79.672 Pain in left foot (principal); Z53.21 Procedure and treatment not carried out due to patient leaving prior to being seen by health care provider ==

== ENCOUNTER 2020-10-29 23:49 | Emergency (ER) | payer MEDICARE ==
[2020-10-30 00:24] VITALS: BP 126/63
[2020-10-30 00:51] LABS: Basophils # (Auto) 0.1 K/mm3 (0.0-0.1); Basophils % (Auto) 0.7 % (0.0-1.8); Eosinophils # (Auto) 0.6 K/mm3 (0.0-0.4); Eosinophils % (Auto) 6.4 % (0.0-4.3); Hematocrit 38.1 % (35.5-45.6); Hemoglobin 13.6 gm/dl (11.8-15.2); Lymphocytes # (Auto) 1.9 K/mm3 (1.2-5.4); Lymphocytes % (Auto) 20.5 % (13.4-35.0); Mean Corpuscular HGB Conc 36 % (32-34); Mean Corpuscular Volume 90 fl (84-94); Monocytes # (Auto) 1.1 K/mm3 (0.0-0.8); Monocytes % (Auto) 11.5 % (0.0-7.3); Platelet Count 146 K/mm3 (140-440); Red Blood Count 4.23 M/mm3 (3.65-5.03); Red Cell Distribution Width 14.2 % (13.2-15.2)
[2020-10-30 01:15] LABS: Alanine Aminotransferase 11 units/L (7-56); Albumin 3.9 g/dL (3.9-5); Blood Urea Nitrogen 13 mg/dL (9-20); Calcium 8.7 mg/dL (8.4-10.2); Hemolysis Index 5
[2020-10-30 01:20] LABS: BUN/Creatinine Ratio 22
--- NOTE | 2020-10-30 01:53 | XRay Report ---
CHEST 2 VIEWS INDICATION: CP. COMPARISON: 05/08/2020 FINDINGS: Support devices: None. Heart: Within normal limits. Lungs/Pleura: No acute air space or interstitial disease. No significant pleural effusion. IMPRESSION: No acute findings. Signer Name: Omar Norton MD Signed: 10/30/2020 1:48 AM Workstation Name: [id number]
--- NOTE | 2020-10-30 12:10 | Electrocardiograph Report ---
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
== END 2020-10-30 01:50 | disposition left against medical advice (07) ==
LOC: ED 23:49
DX: R07.89 Other chest pain (principal); Z53.21 Procedure and treatment not carried out due to patient leaving prior to being seen by health care provider
CPT/HCPCS: 36415; 71046; 80053; 84484; 85025; 93005

== ENCOUNTER 2020-10-30 04:08 | Emergency (ER) | payer MEDICARE ==
[2020-10-30 04:21] VITALS: BP 126/63
== END 2020-10-30 06:35 | disposition home or self-care (01) ==
LOC: ED 04:08
DX: R11.2 Nausea with vomiting, unspecified (principal); F25.0 Schizoaffective disorder, bipolar type; F17.200 Nicotine dependence, unspecified, uncomplicated; Z79.899 Other long term (current) drug therapy
CPT/HCPCS: 36415; 71046; 80053; 80320; 83690; 83735; 84484; 85025; 93005; G0480; Q0162

== ENCOUNTER 2020-10-31 04:39 | Emergency (ER) | payer MEDICARE | END 2020-10-31 05:13 | disposition left against medical advice (07) | LOC: ED 04:39 | DX: R07.9 Chest pain, unspecified (principal); Z53.21 Procedure and treatment not carried out due to patient leaving prior to being seen by health care provider ==

== ENCOUNTER 2020-10-31 23:41 | Emergency (ER) | payer MEDICARE ==
[2020-10-31 23:58] VITALS: BP 121/60
--- NOTE | 2020-11-04 17:35 | Electrocardiograph Report ---
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
== END 2020-11-01 00:48 | disposition left against medical advice (07) ==
LOC: ED 23:41
DX: R07.89 Other chest pain (principal); Z53.21 Procedure and treatment not carried out due to patient leaving prior to being seen by health care provider
CPT/HCPCS: 93005

== ENCOUNTER 2020-12-12 01:10 | Emergency (ER) | payer MEDICARE ==
[2020-12-12 02:39] LABS: Basophils # (Auto) 0.1 K/mm3 (0.0-0.1); Basophils % (Auto) 0.8 % (0.0-1.8); Eosinophils # (Auto) 0.2 K/mm3 (0.0-0.4); Eosinophils % (Auto) 2.1 % (0.0-4.3); Hematocrit 41.4 % (35.5-45.6); Hemoglobin 14.4 gm/dl (11.8-15.2); Lymphocytes # (Auto) 1.9 K/mm3 (1.2-5.4); Lymphocytes % (Auto) 16.9 % (13.4-35.0); Mean Corpuscular HGB Conc 35 % (32-34); Mean Corpuscular Volume 94 fl (84-94); Monocytes # (Auto) 0.8 K/mm3 (0.0-0.8); Monocytes % (Auto) 7.4 % (0.0-7.3); Platelet Count 188 K/mm3 (140-440); Red Cell Distribution Width 14.4 % (13.2-15.2)
[2020-12-12 03:03] LABS: Alanine Aminotransferase 10 units/L (7-56); Blood Urea Nitrogen 6 mg/dL (9-20); Calcium 8.9 mg/dL (8.4-10.2); Hemolysis Index 5
[2020-12-12 03:06] LABS: BUN/Creatinine Ratio 9
--- NOTE | 2020-12-12 03:51 | XRay Report ---
CHEST 2 VIEWS INDICATION / CLINICAL INFORMATION: chest pain. COMPARISON: None available. FINDINGS: SUPPORT DEVICES: None. HEART / MEDIASTINUM: No significant abnormality. LUNGS / PLEURA: Chronic interstitial change and some interstitial nodularity/granulomas change No pne umothorax. ADDITIONAL FINDINGS: No significant additional findings. IMPRESSION: 1. No acute findings. Signer Name: Sid Elkins MD Signed: 12/12/2020 3:46 AM Workstation Name: [id number]
[2020-12-12] MEDS ORDERED: ASPIRIN 325 MG TAB PO ONE (07:33)
--- NOTE | 2020-12-12 07:41 | Emergency Department Report ---
HPI - General Chief Complaint: Chest Pain Time Seen by Provider: 12/12/20 07:26 - HPI HPI: Room 24 The patient is a 40-year-old male present with a chief complaint of chest pain. Patient states he developed pain in the left chest last night has been constant in nature. Patient denies shortness of breath, nausea/vomiting or diaphoresis with this pain. Patient denies history of cough or fever. Patient denies suicidal or homicidal ideation ED Past Medical Hx - Past Medical History Previous Medical History?: Yes Hx Psychiatric Treatment: Yes (bipolar, schizophrenia) - Surgical History Past Surgical History?: No - Family History Family history: no significant - Social History Smoking Status: Never Smoker Substance Use Type: None (Denies illicit drug use) - Medications Home Medications: Home Medications Medication Instructions Recorded Confirmed Last Taken Type FLUoxetine HCL [FLUoxetine] 20 mg PO DAILY #7 tablet 10/04/19 Unknown Rx OLANzapine [Zyprexa] 10 mg PO BID #14 tablet 10/04/19 Unknown Rx hydrOXYzine PAMOATE [Vistaril] 50 mg PO Q12H #14 capsule 10/04/19 Unknown Rx traZODone [Desyrel] 100 mg PO QHS #7 tablet 10/04/19 Unknown Rx Ondansetron [Zofran Odt] 4 mg PO Q8HR PRN #10 tab.rapdis 12/05/19 Unknown Rx Ondansetron [Zofran Odt] 4 mg PO Q6H #20 tab.rapdis 10/30/20 Unknown Rx ED Review of Systems ROS: Stated complaint: CHEST PAIN Other details as noted in HPI Constitutional: denies: diaphoresis, fever Eyes: denies: eye pain ENT: denies: throat pain Respiratory: denies: shortness of breath Cardiovascular: chest pain Endocrine: no symptoms reported Gastrointestinal: denies: nausea, vomiting Genitourinary: denies: dysuria Musculoskeletal: denies: back pain Neurological: denies: headache Psychiatric: denies: homicidal thoughts, suicidal thoughts Physical Exam - Physical Exam Vital Signs: Vital Signs 12/12/20 01:15 Temperature 98 F Pulse Rate 78 Respiratory 16 Rate Blood Pressure 153/78 O2 Sat by Pulse 97 Oximetry Physical Exam: GENERAL: The patient is well-developed well-nourished male lying on stretcher not appearing to be in acute distress. [] HEENT: Normocephalic. Atraumatic. Extraocular motions are intact. Patient has moist mucous membranes. NECK: Supple. Trachea midline CHEST/LUNGS: Clear to auscultation. There is no respiratory distress noted. HEART/CARDIOVASCULAR: Regular. There is no tachycardia. There is no gallop rub or murmur. ABDOMEN: Abdomen is soft, nontender. Patient has normal bowel sounds. There is no abdominal distention. SKIN: There is no rash. There is no edema. There is no diaphoresis. NEURO: The patient is awake, alert, and oriented. The patient is cooperative. The patient has no focal neurologic deficits. The patient has normal speech MUSCULOSKELETAL:There is no evidence of acute injury. ED Course Vital Signs 12/12/20 01:15 Temperature 98 F Pulse Rate 78 Respiratory 16 Rate Blood Pressure 153/78 O2 Sat by Pulse 97 Oximetry ED Medical Decision Making - Lab Data Result diagrams: 12/12/20 01:49 12/12/20 01:49 Laboratory Tests 12/12/20 12/12/20 12/12/20 01:49 01:49 05:00 WBC 11.0 RBC 4.40 Hgb 14.4 Hct 41.4 MCV 94 MCH 33 H MCHC 35 H RDW 14.4 Plt Count 188 Lymph % (Auto) 16.9 [place] % (Auto) 7.4 H Eos % (Auto) 2.1 Baso % (Auto) 0.8 Lymph # (Auto) 1.9 [place] # (Auto) 0.8 Eos # (Auto) 0.2 Baso # (Auto) 0.1 Seg Neutrophils % 72.8 H Seg Neutrophils # 8.0 H D-Dimer Sodium 137 Potassium 3.9 Chloride 102.1 Carbon Dioxide 28 Anion Gap 11 BUN 6 L Creatinine 0.7 L Estimated GFR > 60 BUN/Creatinine Ratio 9 Glucose 93 Calcium 8.9 Total Bilirubin 0.50 AST 23 ALT 10 Alkaline Phosphatase 95 Troponin T < 0.010 < 0.010 Total Protein 7.0 Albumin 4.0 Albumin/Globulin Ratio 1.3 12/12/20 12/12/20 07:14 07:49 WBC RBC Hgb Hct MCV MCH MCHC RDW Plt Count Lymph % (Auto) [place] % (Auto) Eos % (Auto) Baso % (Auto) Lymph # (Auto) [place] # (Auto) Eos # (Auto) Baso # (Auto) Seg Neutrophils % Seg Neutrophils # D-Dimer 262.48 H Sodium Potassium Chloride Carbon Dioxide Anion Gap BUN Creatinine Estimated GFR BUN/Creatinine Ratio Glucose Calcium Total Bilirubin AST ALT Alkaline Phosphatase Troponin T < 0.010 Total Protein Albumin Albumin/Globulin Ratio - EKG Data -: EKG Interpreted by Me EKG shows normal: sinus rhythm Rate: normal - EKG Data When compared to previous EKG there are: no significant change Interpretation: unchanged when compared t - Radiology Data Radiology results: report reviewed (Chest x-ray) - Medical Decision Making Labs and work-up discussed with patient. Explained to him that his D-dimer was elevated and in order to rule out a pulmonary embolus he needs a CT scan. Pat ient verbalized understanding but states he does not wish to have an IV or any further work-up. Patient told should he change his mind return to the hospital for further evaluation. Patient verbalized understanding of increased morbidity and/or mortality should he leave the hospital AGAINST MEDICAL ADVICE. Patient is clear and organized - Differential Diagnosis ACS, PE, pericarditis, GERD Critical care attestation.: If time is entered above; I have spent that time in minutes in the direct care of this critically ill patient, excluding procedure time. ED Disposition Clinical Impression: Chest pain Disposition: DC-07 LEFT AGAINST MED ADVICE Is pt being admited?: No Does the pt Need Aspirin: No Condition: Undetermined Instructions: Nonspecific Chest Pain, Adult Time of Disposition: 09:20 (Patient leaving AMA) Heart Score - HEART Score History: Slightly suspicious EKG: Non-specific Age: < 45 Risk factors: No known risk factors Troponin: < normal limit HEART Score: 1 - EKG Read Time Time EKG Completed: 08:08 EKG Read Time: 08:14
[2020-12-12 10:21] VITALS: BP 106/49
== END 2020-12-12 10:22 | disposition left against medical advice (07) ==
LOC: ED 01:10
DX: R07.89 Other chest pain (principal); F20.9 Schizophrenia, unspecified; F31.9 Bipolar disorder, unspecified; Z79.899 Other long term (current) drug therapy; Z88.8 Allergy status to other drugs, medicaments and biological substances
CPT/HCPCS: 36415; 71046; 80053; 84484; 85025; 85379; 93005

== ENCOUNTER 2020-12-16 19:55 | Emergency (ER) | payer MEDICARE ==
[2020-12-16 20:57] LABS: Blood Urea Nitrogen 8 mg/dL (9-20); Calcium 9.1 mg/dL (8.4-10.2); Hemolysis Index 11
[2020-12-16 20:59] LABS: Basophils # (Auto) 0.1 K/mm3 (0.0-0.1); Basophils % (Auto) 0.8 % (0.0-1.8); Eosinophils # (Auto) 0.3 K/mm3 (0.0-0.4); Eosinophils % (Auto) 3.9 % (0.0-4.3); Hematocrit 41.9 % (35.5-45.6); Hemoglobin 14.4 gm/dl (11.8-15.2); Lymphocytes # (Auto) 2.5 K/mm3 (1.2-5.4); Lymphocytes % (Auto) 31.9 % (13.4-35.0); Mean Corpuscular HGB Conc 34 % (32-34); Mean Corpuscular Volume 94 fl (84-94); Monocytes # (Auto) 0.6 K/mm3 (0.0-0.8); Monocytes % (Auto) 8.1 % (0.0-7.3); Platelet Count 217 K/mm3 (140-440); Red Blood Count 4.46 M/mm3 (3.65-5.03); Red Cell Distribution Width 14.5 % (13.2-15.2)
[2020-12-16 21:03] LABS: BUN/Creatinine Ratio 11
--- NOTE | 2020-12-17 00:28 | Emergency Department Report ---
HPI <JUAN LINK - Last Filed: 12/18/20 11:12> - HPI HPI: 40-year-old male presents via EMS complaining of having bad nerves. He states that he has felt depressed today. He states he is homeless and is very sad. He denies suicidal ideation, homicidal ideation, auditory hallucinations, or visual hallucinations. He denies any physical symptoms or complaints. He denies anxiety. When asked specifically about ulcerations seen to his right dorsal foot, he states that these are from his shoes that he has been using without socks. He denies any trauma to his foot, significant pain, loss of sensory function, focal weakness, or any other symptoms. <ZAN TAYLOR - Last Filed: 12/19/20 09:45> - General Chief Complaint: Psych Time Seen by Provider: 12/16/20 20:54 ED Past Medical Hx <JUAN LINK - Last Filed: 12/18/20 11:12> - Past Medical History Previous Medical History?: Yes Hx Psychiatric Treatment: Yes (bipolar, schizophrenia) - Social History Smoking Status: Never Smoker Substance Use Type: None (Denies illicit drug use) <ZAN TAYLOR - Last Filed: 12/19/20 09:45> - Medications Home Medications: Home Medications Medication Instructions Recorded Confirmed Last Taken Type FLUoxetine HCL [FLUoxetine] 20 mg PO DAILY #7 tablet 10/04/19 Unknown Rx OLANzapine [Zyprexa] 10 mg PO BID #14 tablet 10/04/19 Unknown Rx hydrOXYzine PAMOATE [Vistaril] 50 mg PO Q12H #14 capsule 10/04/19 Unknown Rx traZODone [Desyrel] 100 mg PO QHS #7 tablet 10/04/19 Unknown Rx Ondansetron [Zofran Odt] 4 mg PO Q8HR PRN #10 tab.rapdis 12/05/19 Unknown Rx Ondansetron [Zofran Odt] 4 mg PO Q6H #20 tab.rapdis 10/30/20 Unknown Rx cephALEXin [Keflex] 500 mg PO TID #28 cap 12/17/20 Unknown Rx FLUoxetine HCL [Prozac] 20 mg PO DAILY 30 Days #30 capsule 12/18/20 Unknown Rx traZODone [Desyrel] 50 mg PO QHS 30 Days #30 tab 12/18/20 Unknown Rx ED Review of Systems ROS: Stated complaint: NERVES Other details as noted in HPI <JUAN LINK - Last Filed: 12/18/20 11:12> ROS: Stated complaint: NERVES Other details as noted in HPI Constitutional: denies: chills, fever Eyes: denies: eye pain, vision change ENT: denies: throat pain, congestion Respiratory: denies: cough, shortness of breath Cardiovascular: denies: chest pain, palpitations Gastrointestinal: denies: abdominal pain, nausea, vomiting Musculoskeletal: denies: back pain, myalgia Skin: other (ulcers to right dorsal foot) Neurological: denies: headache, weakness, numbness <ZAN TAYLOR - Last Filed: 12/19/20 09:45> Physical Exam - Physical Exam Vital Signs: Vital Signs 12/16/20 12/17/20 12/17/20 20:16 20:00 20:30 Temperature 98.2 F 97.8 F Pulse Rate 75 65 Respiratory 18 18 18 Rate Blood Pressure 118/52 Blood Pressure 100/58 [Left] O2 Sat by Pulse 96 96 96 Oximetry 12/18/20 12/18/20 02:30 08:35 Temperature 98.0 F 98.0 F Pulse Rate 64 70 Respiratory 18 16 Rate Blood Pressure Blood Pressure 102/60 104/48 [Left] O2 Sat by Pulse 100 99 Oximetry <JUAN LINK - Last Filed: 12/18/20 11:12> - Physical Exam Vital Signs: Vital Signs 12/16/20 20:16 Temperature 98.2 F Pulse Rate 75 Respiratory 18 Rate Blood Pressure 118/52 O2 Sat by Pulse 96 Oximetry Physical Exam: GENERAL: Disheveled, poorly kempt male with visible dirt on his body. He is in no acute distress HEENT: Normocephalic. No obvious signs of trauma. Moist mucous membranes. EYES: Extraocular movements are intact. NECK: Trachea is midline. LUNGS: Nonlabored breathing. Equal chest rise bilaterally. Clear to auscultation bilaterally. HEART/CARDIOVASCULAR: Regular rate and rhythm. No murmurs or rubs. VASCULAR: Cap refill < 2 seconds ABDOMEN: Abdomen is soft and nondistended. There is no significant tenderness, guarding or rebound. SKIN: Skin is warm and dry. There are multiple scattered ulcerations noted to the dorsum of the right foot with surrounding warmth and erythema. There is no fluctuance. NEURO: Patient is awake, alert, and oriented. certified pedorthotist II-XII grossly intact. No focal deficits. Normal motor and sensory exam throughout. Normal speech. Normal gait. MUSCULOSKELETAL: No obvious deformities. No significant tenderness. Normal ROM throughout. As noted in the skin exam, there are ulcerations noted to the dorsum of the right foot with surrounding warmth and erythema. There is no bony tenderness. There is normal range of motion at the right ankle. There is no malleolar tenderness. There is no tenderness of the base of the fifth metatarsal. Both feet have extensive onychomycosis. <ZAN TAYLOR - Last Filed: 12/19/20 09:45> ED Course Vital Signs 12/16/20 12/17/20 12/17/20 20:16 20:00 20:30 Temperature 98.2 F 97.8 F Pulse Rate 75 65 Respiratory 18 18 18 Rate Blood Pressure 118/52 Blood Pressure 100/58 [Left] O2 Sat by Pulse 96 96 96 Oximetry 12/18/20 12/18/20 02:30 08:35 Temperature 98.0 F 98.0 F Pulse Rate 64 70 Respiratory 18 16 Rate Blood Pressure Blood Pressure 102/60 104/48 [Left] O2 Sat by Pulse 100 99 Oximetry <JUAN LINK - Last Filed: 12/18/20 11:12> Vital Signs 12/16/20 20:16 Temperature 98.2 F Pulse Rate 75 Respiratory 18 Rate Blood Pressure 118/52 O2 Sat by Pulse 96 Oximetry <ZAN TAYLOR - Last Filed: 12/19/20 09:45> ED Medical Decision Making - Lab Data Result diagrams: 12/16/20 20:25 12/16/20 20:25 - Medical Decision Making Patient has been evaluated by our psychiatric team and advised to discharge patient and follow-up as an outpatient. Patient is currently denying any suicidal or homicidal ideation. Patient also denied any visual or auditory hallucination. Patient is medically and psychiatrically stable for discharge. <JUAN LINK - Last Filed: 12/18/20 11:12> - Lab Data Result diagrams: 12/16/20 20:25 12/16/20 20:25 Lab Results 12/16/20 12/16/20 12/16/20 Range/Units 20:25 20:25 20:25 WBC (4.5-11.0) K/mm3 RBC (3.65-5.03) M/mm3 Hgb (11.8-15.2) gm/dl Hct (35.5-45.6) % MCV (84-94) fl MCH (28-32) pg MCHC (32-34) % RDW (13.2-15.2) % Plt Count (140-440) K/mm3 Lymph % (Auto) (13.4-35.0) % [place] % (Auto) (0.0-7.3) % Eos % (Auto) (0.0-4.3) % Baso % (Auto) (0.0-1.8) % Lymph # (Auto) (1.2-5.4) K/mm3 [place] # (Auto) (0.0-0.8) K/mm3 Eos # (Auto) (0.0-0.4) K/mm3 Baso # (Auto) (0.0-0.1) K/mm3 Seg Neutrophils % (40.0-70.0) % Seg Neutrophils # (1.8-7.7) K/mm3 Sodium 138 (137-145) mmol/L Potassium 3.7 (3.6-5.0) mmol/L Chloride 101.5 (98-107) mmol/L Carbon Dioxide 26 (22-30) mmol/L Anion Gap 14 mmol/L BUN 8 L (9-20) mg/dL Creatinine 0.7 L (0.8-1.3) mg/dL Estimated GFR > 60 ml/min BUN/Creatinine Ratio 11 % Glucose 92 (75-100) mg/dL Calcium 9.1 (8.4-10.2) mg/dL Urine Color (Yellow) Urine Turbidity (Clear) Urine pH (5.0-7.0) Ur Specific [place] (1.003-1.030) Urine Protein (Negative) mg/dL Urine Glucose (UA) (Negative) mg/dL Urine Ketones (Negative) mg/dL Urine Blood (Negative) Urine Nitrite (Negative) Urine Bilirubin (Negative) Urine Urobilinogen (<2.0) mg/dL Ur Leukocyte Esterase (Negative) Urine WBC (Auto) (0.0-6.0) /HPF Urine RBC (Auto) (0.0-6.0) /HPF Urine Mucus /HPF Salicylates < 0.3 L (2.8-20.0) mg/dL Urine Opiates Screen Urine Methadone Screen Acetaminophen 5.0 L (10.0-30.0) ug/mL Ur Barbiturates Screen Ur Phencyclidine Scrn Ur Amphetamines Screen U Benzodiazepines Scrn Urine Cocaine Screen U Marijuana (THC) Screen Drugs of Abuse Note Plasma/Serum Alcohol (0-0.07) % Coronavirus (PCR) (Negative) 12/16/20 12/16/20 12/16/20 Range/Units 20:25 20:25 Unknown WBC 7.8 (4.5-11.0) K/mm3 RBC 4.46 (3.65-5.03) M/mm3 Hgb 14.4 (11.8-15.2) gm/dl Hct 41.9 (35.5-45.6) % MCV 94 (84-94) fl MCH 32 (28-32) pg MCHC 34 (32-34) % RDW 14.5 (13.2-15.2) % Plt Count 217 (140-440) K/mm3 Lymph % (Auto) 31.9 (13.4-35.0) % [place] % (Auto) 8.1 H (0.0-7.3) % Eos % (Auto) 3.9 (0.0-4.3) % Baso % (Auto) 0.8 (0.0-1.8) % Lymph # (Auto) 2.5 (1.2-5.4) K/mm3 [place] # (Auto) 0.6 (0.0-0.8) K/mm3 Eos # (Auto) 0.3 (0.0-0.4) K/mm3 Baso # (Auto) 0.1 (0.0-0.1) K/mm3 Seg Neutrophils % 55.3 (40.0-70.0) % Seg Neutrophils # 4.3 (1.8-7.7) K/mm3 Sodium (137-145) mmol/L Potassium (3.6-5.0) mmol/L Chloride (98-107) mmol/L Carbon Dioxide (22-30) mmol/L Anion Gap mmol/L BUN (9-20) mg/dL Creatinine (0.8-1.3) mg/dL Estimated GFR ml/min BUN/Creatinine Ratio % Glucose (75-100) mg/dL Calcium (8.4-10.2) mg/dL Urine Color Yellow (Yellow) Urine Turbidity Clear (Clear) Urine pH 7.0 (5.0-7.0) Ur Specific [place] 1.009 (1.003-1.030) Urine Protein <15 mg/dl (Negative) mg/dL Urine Glucose (UA) Neg (Negative) mg/dL Urine Ketones Neg (Negative) mg/dL Urine Blood Neg (Negative) Urine Nitrite Neg (Negative) Urine Bilirubin Neg (Negative) Urine Urobilinogen < 2.0 (<2.0) mg/dL Ur Leukocyte Esterase Neg (Negative) Urine WBC (Auto) < 1.0 (0.0-6.0) /HPF Urine RBC (Auto) 1.0 (0.0-6.0) /HPF Urine Mucus Few /HPF Salicylates (2.8-20.0) mg/dL Urine Opiates Screen Urine Methadone Screen Acetaminophen (10.0-30.0) ug/mL Ur Barbiturates Screen Ur Phencyclidine Scrn Ur Amphetamines Screen U Benzodiazepines Scrn Urine Cocaine Screen U Marijuana (THC) Screen Drugs of Abuse Note Plasma/Serum Alcohol < 0.01 (0-0.07) % Coronavirus (PCR) (Negative) 12/16/20 12/17/20 Range/Units Unknown Unknown WBC (4.5-11.0) K/mm3 RBC (3.65-5.03) M/mm3 Hgb (11.8-15.2) gm/dl Hct (35.5-45.6) % MCV (84-94) fl MCH (28-32) pg MCHC (32-34) % RDW (13.2-15.2) % Plt Count (140-440) K/mm3 Lymph % (Auto) (13.4-35.0) % [place] % (Auto) (0.0-7.3) % Eos % (Auto) (0.0-4.3) % Baso % (Auto) (0.0-1.8) % Lymph # (Auto) (1.2-5.4) K/mm3 [place] # (Auto) (0.0-0.8) K/mm3 Eos # (Auto) (0.0-0.4) K/mm3 Baso # (Auto) (0.0-0.1) K/mm3 Seg Neutrophils % (40.0-70.0) % Seg Neutrophils # (1.8-7.7) K/mm3 Sodium (137-145) mmol/L Potassium (3.6-5.0) mmol/L Chloride (98-107) mmol/L Carbon Dioxide (22-30) mmol/L Anion Gap mmol/L BUN (9-20) mg/dL Creatinine (0.8-1.3) mg/dL Estimated GFR ml/min BUN/Creatinine Ratio % Glucose (75-100) mg/dL Calcium (8.4-10.2) mg/dL Urine Color (Yellow) Urine Turbidity (Clear) Urine pH (5.0-7.0) Ur Specific [place] (1.003-1.030) Urine Protein (Negative) mg/dL Urine Glucose (UA) (Negative) mg/dL Urine Ketones (Negative) mg/dL Urine Blood (Negative) Urine Nitrite (Negative) Urine Bilirubin (Negative) Urine Urobilinogen (<2.0) mg/dL Ur Leukocyte Esterase (Negative) Urine WBC (Auto) (0.0-6.0) /HPF Urine RBC (Auto) (0.0-6.0) /HPF Urine Mucus /HPF Salicylates (2.8-20.0) mg/dL Urine Opiates Screen Negative Urine Methadone Screen Negative Acetaminophen (10.0-30.0) ug/mL Ur Barbiturates Screen Negative Ur Phencyclidine Scrn Negative Ur Amphetamines Screen Negative U Benzodiazepines Scrn Negative Urine Cocaine Screen Negative U Marijuana (THC) Screen Negative Drugs of Abuse Note Disclamer Plasma/Serum Alcohol (0-0.07) % Coronavirus (PCR) Negative (Negative) - Medical Decision Making 40-year-old male with history of homelessness presents complaining of depression today. Denies SI/HI, auditory hallucinations, or visual hallucinations. Although the patient has no physical complaints, physical examination reveals multiple scattered ulcerations to the dorsum of his right foot which the patient attributes to using shoes without socks. He does have surrounding erythema and warmth concerning for cellulitis. There is no joint involvement. There is no bony tenderness. There is no history of trauma. Range of motion is intact. He has normal 2+ pedal pulses bilaterally. Will plan to treat right foot cellulitis with Keflex 500 mg 3 times daily x10 days. The patient will need to follow-up with a doctor. Although the patient does not report SI/HI or hallucinations, given that he does have a psychiatric history and will require outpatient resources I will consult mental health to provide further recommendations. Patient seen by mental health ecological risk assessor in conjunction with psychiatry and prescribed Prosac and Trazodone. Given outpatient resources for follow up. <ZAN TAYLOR - Last Filed: 12/19/20 09:45> Critical care attestation.: If time is entered above; I have spent that time in minutes in the direct care of this critically ill patient, excluding procedure time. <JUAN LINK - Last Filed: 12/18/20 11:12> Critical care attestation.: If time is entered above; I have spent that time in minutes in the direct care of this critically ill patient, excluding procedure time. <ZAN TAYLOR - Last Filed: 12/19/20 09:45> ED Disposition Is pt being admited?: No <JUAN LINK - Last Filed: 12/18/20 11:12> Is pt being admited?: No <ZAN TAYLOR - Last Filed: 12/19/20 09:45> Clinical Impression: Depression, Cellulitis of right foot Disposition: DC-01 TO HOME OR SELFCARE Condition: Stable Instructions: Cellulitis, Adult, Living With Depression Additional Instructions: Please follow-up with primary care doctor or utility tender carding within a few days for your right foot cellulitis. Please return to the emergency department should you develop worsening symptoms, high fever or any other concerns Professional and Agency Contacts To help [facility](10/01) [place] Crisis Line: Suicide Prevention Line: Crisis Text Line: Text START to [phone] Emergency: 911 Outpatient [facility] Behavioral Health Resources: MARYSE: [facility] [address] [place], [place] [address] [facility] [address] [place] [address] KELVIN: [facility] - [address] [place] [address] Tuesday thru Tuesday - 8am - 5pm ADRIANA: [facility] Address: [address], [place] [address] DORADO: [facility] Address: [address] [place] [address] Tuesday thru Tuesday- 7am-2pm [facility] Address: [address] [place] [address] Tuesday thru Tuesday: 8:30AM-5PM Prescriptions: traZODone [Desyrel] 50 mg PO QHS 30 Days #30 tab cephALEXin [Keflex] 500 mg PO TID #28 cap FLUoxetine HCL [Prozac] 20 mg PO DAILY 30 Days #30 capsule Referrals: [facility] [Provider Group] - 2-3 Days PAMELA LINCOLN MD [Staff Physician] - 3-5 Days
[2020-12-17] MEDS ORDERED: cephALEXin 500 MG CAP ONE (00:39)
[2020-12-17] MEDS ORDERED: cephALEXin 500 MG CAP PO ONE (01:11)
[2020-12-17 08:14] LABS: Bilirubin,Urine NEG (Negative); Blood,Urine NEG (Negative); Color,Urine Yellow (Yellow); Mucus,Urine FEW /HPF; Protein,Urine <15 mg/dL mg/dL (Negative); Urobilinogen,Urine < 2.0 mg/dL (<2.0); WBC,Urine < 1.0 /HPF (0.0-6.0)
[2020-12-17 08:47] LABS: Amphetamine Screen,Urine Negative; Benzodiazepines Screen,Urine Negative; Cannabinoid Screen,Urine Negative; Cocaine Screen,Urine Negative; Methadone Screen,Urine Negative; Opiate Screen,Urine Negative
[2020-12-17] MEDS: cephALEXin 500 MG CAP PO SCH ×2 (09:00→15:30)
--- NOTE | 2020-12-17 10:20 | Event Note ---
Date: 12/17/20 This patient presented overnight with complaint of depression and being homeless. He was placed on an ED hold but did not require a 1013 at that time. The patient was medically cleared by my colleague and was placed on some Keflex for some foot wound/ulcer. His vital signs, listed below, have been reassuring throughout his ED course thus far including being afebrile. There are multiple different medications listed for reconciliation, but none yet have been confirmed for this patient. His labs have been unremarkable and he was medically cleared by the previous physician. I spoke to the emergency department psychiatric nurse, Radha, who says that she was not signed out any events from overnight, nor have there been any this morning. He has not yet been seen by the psychiatric team and they will assist with further disposition. We will continue to monitor this patient during his ED course. Vital Signs - 24 hr 12/16/20 20:16 Temperature 98.2 F Pulse Rate 75 Respiratory 18 Rate Blood Pressure 118/52 O2 Sat by Pulse 96 Oximetry
[2020-12-17] MEDS ORDERED: cephALEXin 500 MG CAP PO SCH (12:33)
--- NOTE | 2020-12-17 14:10 | Consultation ---
History of Present Illness - Reason for Consult Consult date: 12/17/20 Reason for consult: Depression - History of Present Psychiatric Illness Per ED Note: 40-year-old male presents via EMS complaining of having bad nerves. He states that he has felt depressed today. He states he is homeless and is very sad. He denies suicidal ideation, homicidal ideation, auditory hallucinations, or visual hallucinations. He denies any physical symptoms or complaints. He denies anxiety. When asked specifically about ulcerations seen to his right dorsal foot, he states that these are from his shoes that he has been using without socks. He denies any trauma to his foot, significant pain, loss of sensory function, focal weakness, or any other symptoms. The patient is a 40 year male. During my interview with the patient today, the patient was drowsy and was not forthcoming with asked questions. PAST PSYCHIATRIC HISTORY:unable to assess PAST MEDICAL HISTORY: n/a Family Psychiatric History: None reported or documented SOCIAL HISTORY: unable to assess REVIEW OF SYSTEMS Constitutional: Negative for weight loss ENT: Negative for stridor Respiratory: Negative for cough or hemoptysis All other systems reviewed and are negative MENTAL STATUS EXAMINATION: unable to assess Diagnoses: RECOMMENDATIONS Patient should be compliant with medications and not to use drugs and not to drink alcohol. PSYCHOTHERAPY: Supportive psychotherapy provided MEDICAL: Per primary team DELIRIUM PRECAUTIONS: Please re-orient patient frequently, keep lights on during the day, and minimize benzodiazepines and opiates as these medications could worsen patient's confusion. 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 Please contact with any questions and/or concerns. Medications and Allergies Allergies Allergy/AdvReac Type Severity Reaction Status Date / Time divalproex sodium Allergy Unknown Verified 12/16/19 17:52 [From Depakote] quetiapine [From Seroquel] Allergy Unknown Verified 12/16/19 17:52 risperidone [From Risperdal] Allergy Unknown Verified 12/16/19 17:52 Home Medications Medication Instructions Recorded Confirmed Last Taken Type FLUoxetine HCL [FLUoxetine] 20 mg PO DAILY #7 tablet 10/04/19 Unknown Rx OLANzapine [Zyprexa] 10 mg PO BID #14 tablet 10/04/19 Unknown Rx hydrOXYzine PAMOATE [Vistaril] 50 mg PO Q12H #14 capsule 10/04/19 Unknown Rx traZODone [Desyrel] 100 mg PO QHS #7 tablet 10/04/19 Unknown Rx Ondansetron [Zofran Odt] 4 mg PO Q8HR PRN #10 tab.rapdis 12/05/19 Unknown Rx Ondansetron [Zofran Odt] 4 mg PO Q6H #20 tab.rapdis 10/30/20 Unknown Rx cephALEXin [Keflex] 500 mg PO TID #28 cap 12/17/20 Unknown Rx Active Meds: Active Medications Cephalexin (Cephalexin 500 Mg Cap) 500 mg PO TID [facility]; Protocol Stop: 12/26/20 22:01 Last Admin: 12/17/20 09:00 Dose: 500 mg Documented by: Mental Status Exam - Vital signs Last Vital Signs Temp 98.2 F 12/16/20 20:16 Pulse 75 12/16/20 20:16 Resp 18 12/16/20 20:16 BP 118/52 12/16/20 20:16 Pulse Ox 96 12/16/20 20:16 Results Result Diagrams: 12/16/20 20:25 12/16/20 20:25 Abnormal lab results 12/16/20 12/16/20 12/16/20 Range/Units 20:25 20:25 20:25 [place] % (Auto) (0.0-7.3) % BUN 8 L (9-20) mg/dL Creatinine 0.7 L (0.8-1.3) mg/dL Salicylates < 0.3 L (2.8-20.0) mg/dL Acetaminophen 5.0 L (10.0-30.0) ug/mL 12/16/20 Range/Units 20:25 [place] % (Auto) 8.1 H (0.0-7.3) % BUN (9-20) mg/dL Creatinine (0.8-1.3) mg/dL Salicylates (2.8-20.0) mg/dL Acetaminophen (10.0-30.0) ug/mL All other labs normal.
[2020-12-18] MEDS: cephALEXin 500 MG CAP PO SCH ×2 (05:48→09:19)
[2020-12-18 08:35] VITALS: BP 104/48
--- NOTE | 2020-12-18 10:24 | Progress Note ---
Subjective - Reason for Consult Consult date: 12/18/20 Reason for consult: Depression - Chief Complaint Chief complaint: Patient was seen this morning resting in bed. Patient reports doing well but complained about his foot " I need some pain killer." Patient reports depression is improving. He reports sleep and appetite as good. He denies any current suicidal homicidal ideation and denies hallucinations. REVIEW OF SYSTEMS Constitutional: Negative for weight loss ENT: Negative for stridor Respiratory: Negative for cough or hemoptysis All other systems reviewed and are negative MENTAL STATUS EXAMINATION General Appearance and Behavior: Age appropriate, good hygiene, wearing appropriate clothes, uncooperative polite with questioning. Cooperation: cooperative Psychomotor Behavior: Psychomotor agitation Mood: good Affect and affective range: Congruent Thought Process: Self directed Thought Content:No suicidal ideation Speech: Normal Intellectual Functioning: Average Suicidal Ideation: Denied Homicidal Ideation: Denied hallucination: Denies Impulse Control: intact Insight and Judgment: limited Memory: Normal Attention:Normal Orientation: Alert and oriented ( 1) Diagnoses: Major depressive Disorder, Recurrent, Moderate F33.1 Current Visit: Yes Status: Acute RECOMMENDATIONS DC 1013 Start Prozac 20mg po Daily Start Trazodone 50mg po QHS Risks, benefits and alternatives of medications discussed with the patient, questions answered and consent obtained from patient. PSYCHOTHERAPY: Supportive psychotherapy provided MEDICAL: Per primary team DELIRIUM PRECAUTIONS: Please re-orient patient frequently, keep lights on during the day, and minimize benzodiazepines and opiates as these medications could worsen patient's confusion. 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 Follow up with out patient within 7 days or sooner. Mental Status Exam - Vital signs Last Vital Signs Temp 98.0 F 12/18/20 08:35 Pulse 70 12/18/20 08:35 Resp 16 12/18/20 08:35 BP 104/48 12/18/20 08:35 Pulse Ox 99 12/18/20 08:35
== END 2020-12-18 11:58 | disposition home or self-care (01) ==
LOC: ED 19:55 → EEVIPCON 19:55 → ED 12-18 11:58
DX: F32.9 Major depressive disorder, single episode, unspecified (principal); Z20.822 Contact with and (suspected) exposure to COVID-19; L03.115 Cellulitis of right lower limb; F20.9 Schizophrenia, unspecified; Z79.899 Other long term (current) drug therapy; Z88.8 Allergy status to other drugs, medicaments and biological substances
CPT/HCPCS: 36415; 80048; 80307; 81001; 85025; 99284; U0003; 80320; G0480

== ENCOUNTER 2020-12-21 01:41 | Emergency (ER) | payer MEDICARE ==
--- NOTE | 2020-12-21 03:50 | Emergency Department Report ---
ED General Adult HPI - General Chief complaint: Psych Stated complaint: nausea Time Seen by Provider: 12/21/20 03:25 Source: patient Mode of arrival: Ambulatory Limitations: No Limitations - History of Present Illness Initial comments: 40-year-old male presents emergency department plaint of nausea. He denies any abdominal pain. He has been eating okay. Patient does have a history of schizophrenia and makes frequent visits to the emergency department. - Related Data Previous Rx's Medication Instructions Recorded Last Taken Type FLUoxetine HCL [FLUoxetine] 20 mg PO DAILY #7 tablet 10/04/19 Unknown Rx OLANzapine [Zyprexa] 10 mg PO BID #14 tablet 10/04/19 Unknown Rx hydrOXYzine PAMOATE [Vistaril] 50 mg PO Q12H #14 capsule 10/04/19 Unknown Rx traZODone [Desyrel] 100 mg PO QHS #7 tablet 10/04/19 Unknown Rx Ondansetron [Zofran Odt] 4 mg PO Q8HR PRN #10 tab.rapdis 12/05/19 Unknown Rx Ondansetron [Zofran Odt] 4 mg PO Q6H #20 tab.rapdis 10/30/20 Unknown Rx cephALEXin [Keflex] 500 mg PO TID #28 cap 12/17/20 Unknown Rx FLUoxetine HCL [Prozac] 20 mg PO DAILY 30 Days #30 capsule 12/18/20 Unknown Rx traZODone [Desyrel] 50 mg PO QHS 30 Days #30 tab 12/18/20 Unknown Rx Allergies Allergy/AdvReac Type Severity Reaction Status Date / Time divalproex sodium Allergy Unknown Verified 12/16/19 17:52 [From Depakote] quetiapine [From Seroquel] Allergy Unknown Verified 12/16/19 17:52 risperidone [From Risperdal] Allergy Unknown Verified 12/16/19 17:52 ED Review of Systems ROS: Stated complaint: CHEST PAIN Other details as noted in HPI Constitutional: denies: chills, fever Eyes: denies: eye discharge ENT: denies: dental pain Respiratory: denies: shortness of breath Cardiovascular: denies: chest pain Endocrine: no symptoms reported Gastrointestinal: nausea. denies: vomiting Genitourinary: frequency Musculoskeletal: denies: back pain Skin: denies: rash Neurological: denies: headache Psychiatric: denies: anxiety, depression Hematological/Lymphatic: denies: easy bleeding ED Past Medical Hx - Past Medical History Previous Medical History?: Yes Hx Psychiatric Treatment: Yes (bipolar, schizophrenia) - Surgical History Past Surgical History?: No - Social History Smoking Status: Never Smoker Substance Use Type: None (Denies illicit drug use) - Medications Home Medications: Home Medications Medication Instructions Recorded Confirmed Last Taken Type FLUoxetine HCL [FLUoxetine] 20 mg PO DAILY #7 tablet 10/04/19 Unknown Rx OLANzapine [Zyprexa] 10 mg PO BID #14 tablet 10/04/19 Unknown Rx hydrOXYzine PAMOATE [Vistaril] 50 mg PO Q12H #14 capsule 10/04/19 Unknown Rx traZODone [Desyrel] 100 mg PO QHS #7 tablet 10/04/19 Unknown Rx Ondansetron [Zofran Odt] 4 mg PO Q8HR PRN #10 tab.rapdis 12/05/19 Unknown Rx Ondansetron [Zofran Odt] 4 mg PO Q6H #20 tab.rapdis 10/30/20 Unknown Rx cephALEXin [Keflex] 500 mg PO TID #28 cap 12/17/20 Unknown Rx FLUoxetine HCL [Prozac] 20 mg PO DAILY 30 Days #30 capsule 12/18/20 Unknown Rx traZODone [Desyrel] 50 mg PO QHS 30 Days #30 tab 12/18/20 Unknown Rx ED Physical Exam - General Limitations: No Limitations General appearance: alert, in no apparent distress - Head Head exam: Present: atraumatic, normocephalic - Eye Eye exam: Present: normal appearance Pupils: Present: normal accommodation - ENT ENT exam: Present: normal exam - Neck Neck exam: Present: normal inspection - Respiratory Respiratory exam: Present: normal lung sounds bilaterally - Cardiovascular Cardiovascular Exam: Present: regular rate, normal rhythm, normal heart sounds - GI/Abdominal GI/Abdominal exam: Present: soft. Absent: distended, tenderness - Rectal Rectal exam: Present: deferred - Extremities Exam Extremities exam: Present: normal inspection - Back Exam Back exam: Present: normal inspection - Neurological Exam Neurological exam: Present: alert - Psychiatric Psychiatric exam: Present: normal affect - Skin Skin exam: Present: warm, dry, intact ED Course Vital Signs 12/21/20 02:13 Temperature 98.0 F Pulse Rate 67 Respiratory 16 Rate Blood Pressure 108/47 O2 Sat by Pulse 98 Oximetry ED Medical Decision Making - Medical Decision Making 40-year-old male presents to emergency department complaint of nausea. Abdominal exam is benign. Patient is tolerating p.o. in the emergency department. Plan for patient to be discharged with follow-up with primary care. Critical care attestation.: If time is entered above; I have spent that time in minutes in the direct care of this critically ill patient, excluding procedure time. ED Disposition Clinical Impression: Nausea Disposition: DC-01 TO HOME OR SELFCARE Is pt being admited?: No Does the pt Need Aspirin: No Condition: Stable Instructions: Nausea, Adult Time of Disposition: 03:48
[2020-12-21 05:52] VITALS: BP 107/65
== END 2020-12-21 04:00 | disposition home or self-care (01) ==
LOC: ED 01:41
DX: R11.0 Nausea (principal); F31.9 Bipolar disorder, unspecified; F20.9 Schizophrenia, unspecified; Z88.8 Allergy status to other drugs, medicaments and biological substances; Z79.899 Other long term (current) drug therapy
CPT/HCPCS: 99281

== ENCOUNTER 2020-12-25 11:28 | Emergency (ER) | payer MEDICARE ==
[2020-12-25 11:39] VITALS: BP 111/48
== END 2020-12-25 11:40 | disposition left against medical advice (07) ==
LOC: ED 11:28
DX: R10.9 Unspecified abdominal pain (principal); Z53.21 Procedure and treatment not carried out due to patient leaving prior to being seen by health care provider

== ENCOUNTER 2021-04-02 03:48 | Emergency (ER) | payer MEDICARE ==
--- NOTE | 2021-04-02 06:38 | Emergency Department Report ---
HPI - General Chief Complaint: Psych Time Seen by Provider: 04/02/21 06:02 - HPI HPI: 41-year-old male presents to the emergency department with complaint of "I am having a problem with my nerves." I asked if the patient is feeling anxious and the patient says "no, I have schizophrenia." He denies any current auditory or visual hallucinations. He denies any suicidal or homicidal ideations. When asked what brought him to the emergency department, the patient says "I just do not feel well." He cannot describe as to what not feeling well means in terms of any other symptoms. He denies any fever, cough, shortness of breath, chest pain, abdominal pain. The patient requests a psychiatric evaluation, but also requests case management for assistance in placement to "a penitentiary house or a homeless [facility]." He denies any tobacco, illicit drug, or alcohol use/abuse. ED Past Medical Hx - Past Medical History Hx Psychiatric Treatment: Yes (bipolar, schizophrenia) - Social History Smoking Status: Former Smoker Substance Use Type: None - Medications Home Medications: Home Medications Medication Instructions Recorded Confirmed Last Taken Type FLUoxetine HCL [FLUoxetine] 20 mg PO DAILY #7 tablet 10/04/19 Unknown Rx OLANzapine [Zyprexa] 10 mg PO BID #14 tablet 10/04/19 Unknown Rx hydrOXYzine PAMOATE [Vistaril] 50 mg PO Q12H #14 capsule 10/04/19 Unknown Rx traZODone [Desyrel] 100 mg PO QHS #7 tablet 10/04/19 Unknown Rx Ondansetron [Zofran Odt] 4 mg PO Q8HR PRN #10 tab.rapdis 12/05/19 Unknown Rx Ondansetron [Zofran Odt] 4 mg PO Q6H #20 tab.rapdis 10/30/20 Unknown Rx cephALEXin [Keflex] 500 mg PO TID #28 cap 12/17/20 Unknown Rx FLUoxetine HCL [Prozac] 20 mg PO DAILY 30 Days #30 capsule 12/18/20 Unknown Rx traZODone [Desyrel] 50 mg PO QHS 30 Days #30 tab 12/18/20 Unknown Rx ED Review of Systems ROS: Stated complaint: MH EVAL Other details as noted in HPI Comment: All other systems reviewed and negative Constitutional: denies: chills, fever Eyes: denies: eye pain, vision change ENT: denies: ear pain, throat pain Respiratory: denies: cough, shortness of breath Cardiovascular: denies: chest pain, palpitations Gastrointestinal: denies: abdominal pain, vomiting Genitourinary: denies: dysuria, discharge Musculoskeletal: denies: back pain, arthralgia Skin: denies: rash, lesions Neurological: denies: headache, weakness Psychiatric: denies: auditory hallucinations, visual hallucinations, homicidal thoughts, suicidal thoughts Physical Exam - Physical Exam Vital Signs: Vital Signs 04/02/21 04/02/21 04:29 04:47 Temperature 98.9 F 98.9 F Pulse Rate 80 76 Respiratory 18 18 Rate Blood Pressure 107/61 Blood Pressure 107/61 107/61 [Right] O2 Sat by Pulse 98 Oximetry Physical Exam: GENERAL: The patient is well-developed well-nourished. HENT: Normocephalic. Atraumatic. Patient has moist mucous membranes. EYES: Extraocular motions are intact. NECK: Supple. Trachea is midline. CHEST/LUNGS: Clear to auscultation. There is no respiratory distress noted. HEART/CARDIOVASCULAR: Regular. There is no tachycardia. There is no murmur. ABDOMEN: Abdomen is soft, nontender. Patient has normal bowel sounds. SKIN: Skin is warm and dry. NEURO: The patient is awake, alert, and oriented. The patient is cooperative. Normal speech. MUSCULOSKELETAL: There is no tenderness or deformity. There is no limitation range of motion. ED Course Vital Signs 04/02/21 04/02/21 04:29 04:47 Temperature 98.9 F 98.9 F Pulse Rate 80 76 Respiratory 18 18 Rate Blood Pressure 107/61 Blood Pressure 107/61 107/61 [Right] O2 Sat by Pulse 98 Oximetry ED Medical Decision Making - Lab Data Result diagrams: 04/02/21 06:00 04/02/21 06:00 Lab Results 04/02/21 04/02/21 04/02/21 Range/Units 06:00 06:00 06:10 WBC 9.2 (4.5-11.0) K/mm3 RBC 4.84 (3.65-5.03) M/mm3 Hgb 15.0 (11.8-15.2) gm/dl Hct 42.4 (35.5-45.6) % MCV 88 (84-94) fl MCH 31 (28-32) pg MCHC 35 H (32-34) % RDW 14.2 (13.2-15.2) % Plt Count 148 (140-440) K/mm3 Lymph % (Auto) 27.2 (13.4-35.0) % [place] % (Auto) 8.6 H (0.0-7.3) % Eos % (Auto) 2.8 (0.0-4.3) % Baso % (Auto) 0.9 (0.0-1.8) % Lymph # (Auto) 2.5 (1.2-5.4) K/mm3 [place] # (Auto) 0.8 (0.0-0.8) K/mm3 Eos # (Auto) 0.3 (0.0-0.4) K/mm3 Baso # (Auto) 0.1 (0.0-0.1) K/mm3 Seg Neutrophils % 60.5 (40.0-70.0) % Seg Neutrophils # 5.6 (1.8-7.7) K/mm3 Sodium 140 (137-145) mmol/L Potassium 3.6 (3.6-5.0) mmol/L Chloride 105.7 (98-107) mmol/L Carbon Dioxide 24 (22-30) mmol/L Anion Gap 14 mmol/L BUN 8 L (9-20) mg/dL Creatinine 0.7 L (0.8-1.3) mg/dL Estimated GFR > 60 ml/min BUN/Creatinine Ratio 11 % Glucose 115 H (75-100) mg/dL Calcium 8.8 (8.4-10.2) mg/dL Total Bilirubin 0.60 (0.1-1.2) mg/dL AST 36 (5-40) units/L ALT 14 (7-56) units/L Alkaline Phosphatase 100 (35-129) units/L Total Protein 6.8 (6.3-8.2) g/dL Albumin 4.0 (3.9-5) g/dL Albumin/Globulin Ratio 1.4 % Urine Color (Yellow) Urine Turbidity (Clear) Urine pH (5.0-7.0) Ur Specific [place] (1.003-1.030) Urine Protein (Negative) mg/dL Urine Glucose (UA) (Negative) mg/dL Urine Ketones (Negative) mg/dL Urine Blood (Negative) Urine Nitrite (Negative) Urine Bilirubin (Negative) Urine Urobilinogen (<2.0) mg/dL Ur Leukocyte Esterase (Negative) Urine WBC (Auto) (0.0-6.0) /HPF Urine RBC (Auto) (0.0-6.0) /HPF Urine Mucus /HPF Urine Opiates Screen Urine Methadone Screen Ur Barbiturates Screen Ur Phencyclidine Scrn Ur Amphetamines Screen U Benzodiazepines Scrn Urine Cocaine Screen U Marijuana (THC) Screen Drugs of Abuse Note Plasma/Serum Alcohol < 0.01 (0-0.07) % 04/02/21 04/02/21 Range/Units Unknown Unknown WBC (4.5-11.0) K/mm3 RBC (3.65-5.03) M/mm3 Hgb (11.8-15.2) gm/dl Hct (35.5-45.6) % MCV (84-94) fl MCH (28-32) pg MCHC (32-34) % RDW (13.2-15.2) % Plt Count (140-440) K/mm3 Lymph % (Auto) (13.4-35.0) % [place] % (Auto) (0.0-7.3) % Eos % (Auto) (0.0-4.3) % Baso % (Auto) (0.0-1.8) % Lymph # (Auto) (1.2-5.4) K/mm3 [place] # (Auto) (0.0-0.8) K/mm3 Eos # (Auto) (0.0-0.4) K/mm3 Baso # (Auto) (0.0-0.1) K/mm3 Seg Neutrophils % (40.0-70.0) % Seg Neutrophils # (1.8-7.7) K/mm3 Sodium (137-145) mmol/L Potassium (3.6-5.0) mmol/L Chloride (98-107) mmol/L Carbon Dioxide (22-30) mmol/L Anion Gap mmol/L BUN (9-20) mg/dL Creatinine (0.8-1.3) mg/dL Estimated GFR ml/min BUN/Creatinine Ratio % Glucose (75-100) mg/dL Calcium (8.4-10.2) mg/dL Total Bilirubin (0.1-1.2) mg/dL AST (5-40) units/L ALT (7-56) units/L Alkaline Phosphatase (35-129) units/L Total Protein (6.3-8.2) g/dL Albumin (3.9-5) g/dL Albumin/Globulin Ratio % Urine Color Yellow (Yellow) Urine Turbidity Clear (Clear) Urine pH 6.0 (5.0-7.0) Ur Specific [place] 1.013 (1.003-1.030) Urine Protein <15 mg/dl (Negative) mg/dL Urine Glucose (UA) Neg (Negative) mg/dL Urine Ketones Neg (Negative) mg/dL Urine Blood Neg (Negative) Urine Nitrite Neg (Negative) Urine Bilirubin Neg (Negative) Urine Urobilinogen 2.0 (<2.0) mg/dL Ur Leukocyte Esterase Neg (Negative) Urine WBC (Auto) 1.0 (0.0-6.0) /HPF Urine RBC (Auto) 1.0 (0.0-6.0) /HPF Urine Mucus Few /HPF Urine Opiates Screen Negative Urine Methadone Screen Negative Ur Barbiturates Screen Negative Ur Phencyclidine Scrn Negative Ur Amphetamines Screen Negative U Benzodiazepines Scrn Negative Urine Cocaine Screen Negative U Marijuana (THC) Screen Negative Drugs of Abuse Note Disclamer Plasma/Serum Alcohol (0-0.07) % - Medical Decision Making This patient presents to the emergency department with a complaint of "not feeling well", but could not be more specific as to his symptoms. He also asked for a psychiatric evaluation. He has a history of schizophrenia, but denies any auditory or visual hallucinations, or any suicidal or homicidal ideations. Patient is awake, oriented, calm and appropriate. He does not appear to meet criteria to be made a 1013 or require inpatient stabilization. He was later seen by the psychiatric team that agrees with this assessment and has provided outpatient referrals. Labs have been unremarkable including CBC, metabolic panel, blood alcohol level, urinalysis and UDS. Vital signs reassuring throughout his ED course. The patient does not appear to have any medical condition or illness at this time that requires admission. He has been given outpatient referral for [facility]. He will return to the emergency department with any worsening of his symptoms or with any acute distress. Critical Care Time: No Critical care attestation.: If time is entered above; I have spent that time in minutes in the direct care of this critically ill patient, excluding procedure time. ED Disposition Clinical Impression: Medical clearance for psychiatric admission, Homeless Schizophrenia Qualifiers: Schizophrenia type: unspecified Qualified Code(s): F20.9 - Schizophrenia, unspecified Disposition: 01 HOME / SELF CARE / HOMELESS Is pt being admited?: No Condition: Stable Instructions: Schizophrenia Additional Instructions: Please follow-up with the [facility], or any of the outpatient referrals given to you by the psychiatric team. OUTPATIENT MENTAL HEALTH RESOURCES [facility], [facility] Ancelmo Euceda MD: [address] [place] [address] [place] [address] [facility]: [employer] [address] [place] [address] [place] [address] [phone] [facility]: [facility]: [address] [facility] [address] [place] [address] [facility] [id number] [facility]: Gregorio Gupta MD: [id number] [facility] [address] [facility] [id number] [facility]: [address] [place], [place] [id number] [phone] [place] CRISIS AND ACCESS LINE: Referrals: [facility] [Provider Group] - 2-3 Days [facility] [Outside] - 2-3 Days
[2021-04-02 06:41] LABS: Basophils # (Auto) 0.1 K/mm3 (0.0-0.1); Basophils % (Auto) 0.9 % (0.0-1.8); Eosinophils # (Auto) 0.3 K/mm3 (0.0-0.4); Eosinophils % (Auto) 2.8 % (0.0-4.3); Hematocrit 42.4 % (35.5-45.6); Lymphocytes # (Auto) 2.5 K/mm3 (1.2-5.4); Lymphocytes % (Auto) 27.2 % (13.4-35.0); Mean Corpuscular HGB Conc 35 % (32-34); Mean Corpuscular Volume 88 fl (84-94); Monocytes # (Auto) 0.8 K/mm3 (0.0-0.8); Monocytes % (Auto) 8.6 % (0.0-7.3); Platelet Count 148 K/mm3 (140-440); Red Blood Count 4.84 M/mm3 (3.65-5.03); Red Cell Distribution Width 14.2 % (13.2-15.2)
[2021-04-02 07:10] LABS: Alanine Aminotransferase 14 units/L (7-56); Blood Urea Nitrogen 8 mg/dL (9-20); Calcium 8.8 mg/dL (8.4-10.2); Hemolysis Index 24
[2021-04-02 07:11] LABS: BUN/Creatinine Ratio 11
[2021-04-02 07:43] VITALS: BP 110/68
[2021-04-02 09:11] LABS: Bilirubin,Urine NEG (Negative); Blood,Urine NEG (Negative); Color,Urine Yellow (Yellow); Mucus,Urine FEW /HPF; Protein,Urine <15 mg/dL mg/dL (Negative)
[2021-04-02 09:20] LABS: Amphetamine Screen,Urine Negative; Benzodiazepines Screen,Urine Negative; Cannabinoid Screen,Urine Negative; Cocaine Screen,Urine Negative; Methadone Screen,Urine Negative; Opiate Screen,Urine Negative
--- NOTE | 2021-04-02 10:59 | Consultation ---
History of Present Illness - Reason for Consult Consult date: 04/02/21 Reason for consult: anxiety - History of Present Psychiatric Illness The patient was seen today. He is calm and cooperative. He is sleeping but easily arouses. He is vague in describing what's going on with him. He is a 41y/o male patient who states he came in for his "nerves." He says "I'm anxious ." When asking the patient why, he said "I don't know." He says "I need something for my nerves." He denies any fear or feeling of endangerment. The patient denies SI/HI. He also denies hallucinations of any kind. He denies being on any psychiatric medications. He denies any illicit drug use, alcohol or nicotine. PAST PSYCHIATRIC HISTORY: Diagnoses: schizophrenia Suicide attempts or Self-harm behavior: Denies Prior psychiatric hospitalizations: Yes Substance Abuse history: Denies Previous psychiatric medications tried: Denies Outpatient treatment: Denies PAST MEDICAL HISTORY: None reported or document Family Psychiatric History: None reported or documented SOCIAL HISTORY Marital Status: Single Living Arrangements: "lives at a house" Employment Status: Unemployed Access to guns/weapons: Denies Education: History of Abuse: Denies Legal History: unknown REVIEW OF SYSTEMS Constitutional: Negative for weight loss ENT: Negative for stridor Respiratory: Negative for cough or hemoptysis All other systems reviewed and are negative MENTAL STATUS EXAMINATION General Appearance and Behavior: Age appropriate, good hygiene, wearing lilia ropriate clothes. calm, cooperative Cooperation: Cooperative Psychomotor Behavior: Psychomotor normal Mood: anxious Affect and affective range: Congruent with stated mood Thought Process: circumstantial Thought Content: None Speech: normal tone and pace Suicidal Ideation: Denies Homicidal Ideation: Denies Hallucinations: Denies Delusions: None elicited Impulse Control: Normal Insight and Judgment: Limited Memory: Limited Attention: attentive Orientation: a/o x 3 Assessment (1) Mental Health Evaluation Current Visit: Yes Status: Acute Treatment Plan No scripts given at this time The patient to comply with previously prescribed medications Risks, benefits and alternatives of medications discussed with the patient, questions answered and consent obtained from patient. PSYCHOTHERAPY: Supportive psychotherapy provided MEDICAL: Per primary team DELIRIUM PRECAUTIONS: Please re-orient patient frequently, keep lights on during the day, and minimize benzodiazepines and opiates as these medications could worsen patient's confusion. [employer]ER: Defer to primary DISPOSITION: Do not recommend acute psychiatric inpatient treatment. The patient understands that if SI/HI or fear of endangerment are to arise he is to seek immediate assistance. The co founder and president to further discuss safety plan The co founder and president to give the patient all necessary outpatient resources FOLLOW-UP: sign off. Thanks Case staffed with Dr. Lizarraga Medications and Allergies Allergies Allergy/AdvReac Type Severity Reaction Status Date / Time divalproex sodium Allergy Unknown Verified 04/02/21 04:28 [From Depakote] quetiapine [From Seroquel] Allergy Unknown Verified 04/02/21 04:28 risperidone [From Risperdal] Allergy Unknown Verified 04/02/21 04:28 Home Medications Medication Instructions Recorded Confirmed Last Taken Type FLUoxetine HCL [FLUoxetine] 20 mg PO DAILY #7 tablet 10/04/19 Unknown Rx OLANzapine [Zyprexa] 10 mg PO BID #14 tablet 10/04/19 Unknown Rx hydrOXYzine PAMOATE [Vistaril] 50 mg PO Q12H #14 capsule 10/04/19 Unknown Rx traZODone [Desyrel] 100 mg PO QHS #7 tablet 10/04/19 Unknown Rx Ondansetron [Zofran Odt] 4 mg PO Q8HR PRN #10 tab.rapdis 12/05/19 Unknown Rx Ondansetron [Zofran Odt] 4 mg PO Q6H #20 tab.rapdis 10/30/20 Unknown Rx cephALEXin [Keflex] 500 mg PO TID #28 cap 12/17/20 Unknown Rx FLUoxetine HCL [Prozac] 20 mg PO DAILY 30 Days #30 capsule 12/18/20 Unknown Rx traZODone [Desyrel] 50 mg PO QHS 30 Days #30 tab 12/18/20 Unknown Rx Mental Status Exam - Vital signs Last Vital Signs Temp 98.9 F 04/02/21 07:42 Pulse 74 04/02/21 07:42 Resp 18 04/02/21 07:42 BP 110/68 04/02/21 07:42 Pulse Ox 96 04/02/21 07:42 Results Result Diagrams: 04/02/21 06:00 04/02/21 06:00 Abnormal lab results 04/02/21 04/02/21 Range/Units 06:00 06:00 MCHC 35 H (32-34) % [place] % (Auto) 8.6 H (0.0-7.3) % BUN 8 L (9-20) mg/dL Creatinine 0.7 L (0.8-1.3) mg/dL Glucose 115 H (75-100) mg/dL All other labs normal.
== END 2021-04-02 12:29 | disposition home or self-care (01) ==
LOC: ED 03:48 → EEVIPCON 03:48 → ED 12:29
DX: F20.9 Schizophrenia, unspecified (principal); Z13.30 Encounter for screening examination for mental health and behavioral disorders, unspecified; Z20.822 Contact with and (suspected) exposure to COVID-19; F31.9 Bipolar disorder, unspecified; Z87.891 Personal history of nicotine dependence; Z59.00 Homelessness unspecified
CPT/HCPCS: 36415; 80053; 80307; 81001; 85025; 99284; U0003; 80320; G0480

== ENCOUNTER 2021-04-11 01:04 | Emergency (ER) | payer MEDICARE ==
--- NOTE | 2021-04-11 01:47 | Emergency Department Report ---
ED Psych HPI - General Chief Complaint: Psych Stated Complaint: PSYCH Time Seen by Provider: 04/11/21 01:30 Source: patient Mode of arrival: Ambulatory Limitations: No Limitations - History of Present Illness Initial Comments: Patient is a 41-year-old male presents emergency room for complaints of anxiety. Patient states he is tired he started this morning. States it is unchanged. Patient denies suicidal and homicidal ideations. Patient denies hallucinations. Patient denies depression. Patient states he does not take any medications. Patient denies fever chills. Patient denies recent travel. Patient denies recent international travel. Patient denies exposure to the novel coronavirus. Patient denies sick contacts. Patient denies fever and chills. Patient denies cough. Patient denies diarrhea. Patient denies coming in contact with anybody with symptoms of the novel coronavirus. Complaint: other (Anxiety) -: Sudden, days(s) Associated Psychiatric Symptoms: none History of same: No Quality: constant Improves With: none Worsens With: none Associated Symptoms: denies: confusion, headache, shortness of breath, nausea, vomiting, syncope, insomnia - Related Data Previous Rx's Medication Instructions Recorded Last Taken Type FLUoxetine HCL [FLUoxetine] 20 mg PO DAILY #7 tablet 10/04/19 Unknown Rx OLANzapine [Zyprexa] 10 mg PO BID #14 tablet 10/04/19 Unknown Rx hydrOXYzine PAMOATE [Vistaril] 50 mg PO Q12H #14 capsule 10/04/19 Unknown Rx traZODone [Desyrel] 100 mg PO QHS #7 tablet 10/04/19 Unknown Rx Ondansetron [Zofran Odt] 4 mg PO Q8HR PRN #10 tab.rapdis 12/05/19 Unknown Rx Ondansetron [Zofran Odt] 4 mg PO Q6H #20 tab.rapdis 10/30/20 Unknown Rx cephALEXin [Keflex] 500 mg PO TID #28 cap 12/17/20 Unknown Rx FLUoxetine HCL [Prozac] 20 mg PO DAILY 30 Days #30 capsule 12/18/20 Unknown Rx traZODone [Desyrel] 50 mg PO QHS 30 Days #30 tab 12/18/20 Unknown Rx Allergies Allergy/AdvReac Type Severity Reaction Status Date / Time divalproex sodium Allergy Unknown Verified 04/14/21 01:59 [From Depakote] quetiapine [From Seroquel] Allergy Unknown Verified 04/14/21 01:59 risperidone [From Risperdal] Allergy Unknown Verified 04/14/21 01:59 ED Review of Systems ROS: Stated complaint: PSYCH Other details as noted in HPI Constitutional: denies: chills, fever Eyes: denies: eye pain, eye discharge, vision change ENT: denies: ear pain, throat pain Respiratory: denies: cough, shortness of breath, wheezing Cardiovascular: denies: chest pain, palpitations Endocrine: no symptoms reported Gastrointestinal: denies: abdominal pain, nausea, diarrhea Genitourinary: denies: urgency, dysuria Musculoskeletal: denies: back pain, joint swelling, arthralgia Skin: denies: rash, lesions Neurological: denies: headache, weakness, paresthesias Psychiatric: anxiety. denies: depression Hematological/Lymphatic: denies: easy bleeding, easy bruising ED Past Medical Hx - Past Medical History Previous Medical History?: Yes Hx Psychiatric Treatment: Yes (bipolar, schizophrenia) - Surgical History Past Surgical History?: No - Family History Family history: no significant - Social History Smoking Status: Current Every Day Smoker Substance Use Type: None - Medications Home Medications: Home Medications Medication Instructions Recorded Confirmed Last Taken Type FLUoxetine HCL [FLUoxetine] 20 mg PO DAILY #7 tablet 10/04/19 Unknown Rx OLANzapine [Zyprexa] 10 mg PO BID #14 tablet 10/04/19 Unknown Rx hydrOXYzine PAMOATE [Vistaril] 50 mg PO Q12H #14 capsule 10/04/19 Unknown Rx traZODone [Desyrel] 100 mg PO QHS #7 tablet 10/04/19 Unknown Rx Ondansetron [Zofran Odt] 4 mg PO Q8HR PRN #10 tab.rapdis 12/05/19 Unknown Rx Ondansetron [Zofran Odt] 4 mg PO Q6H #20 tab.rapdis 10/30/20 Unknown Rx cephALEXin [Keflex] 500 mg PO TID #28 cap 12/17/20 Unknown Rx FLUoxetine HCL [Prozac] 20 mg PO DAILY 30 Days #30 capsule 12/18/20 Unknown Rx traZODone [Desyrel] 50 mg PO QHS 30 Days #30 tab 12/18/20 Unknown Rx ED Physical Exam - General General appearance: alert, in no apparent distress - Head Head exam: Present: atraumatic, normocephalic - Eye Eye exam: Present: normal appearance - ENT ENT exam: Present: mucous membranes moist - Neck Neck exam: Present: normal inspection - Respiratory Respiratory exam: Present: normal lung sounds bilaterally. Absent: respiratory distress - Cardiovascular Cardiovascular Exam: Present: regular rate, normal rhythm, normal heart sounds. Absent: systolic murmur, diastolic murmur, rubs, gallop - GI/Abdominal GI/Abdominal exam: Present: soft, normal bowel sounds - Rectal Rectal exam: Present: deferred - Extremities Exam Extremities exam: Present: normal inspection - Back Exam Back exam: Present: normal inspection - Neurological Exam Neurological exam: Present: alert, oriented X3 - Psychiatric Psychiatric exam: Present: normal affect, normal mood - Skin Skin exam: Present: warm, dry, intact, normal color. Absent: rash ED Course - Reevaluation(s) Reevaluation #1: I discussed all results and clinical findings with patient. I discussed plan of care with patient. Patient agrees with plan of care. Patient is stable for discharge. Patient will be discharged home. Patient given discharge instructions. Patient voiced understanding of discharge instructions. 04/11/21 01:40 ED Medical Decision Making - Medical Decision Making Patient is a 41-year-old male who presents emergency room with complaints of anxiety. Patient is stable. Patient does not require a 1013. Patient does not require inpatient service. Patient not require further emergency medical service. Patient stable for discharge. Patient discharged home. Patient left without excepting his discharge paperwork. I discussed all results and clinical findings with patient. I discussed plan of care with patient. Patient agrees with plan of care. Patient is stable for discharge. Patient will be discharged home. Patient given discharge instructions. Patient voiced understanding of discharge instructions. - Differential Diagnosis Anxiety Critical care attestation.: If time is entered above; I have spent that time in minutes in the direct care of this critically ill patient, excluding procedure time. ED Disposition Clinical Impression: Anxiety Disposition: 01 HOME / SELF CARE / HOMELESS Is pt being admited?: No Does the pt Need Aspirin: No Condition: Stable Instructions: Managing Anxiety, Adult Additional Instructions: Patient to follow-up with primary care in 2 to 3 days. Patient to rest. Patient to increase water. Patient to try relaxation techniques. Patient to return to the ER if condition worsens, changes or new symptoms arise. Referrals: DIANA ZAMUDIO MD [Primary Care Provider] - 2-3 Days Time of Disposition: 01:47
== END 2021-04-11 05:22 | disposition home or self-care (01) ==
LOC: ED 01:04
DX: F41.9 Anxiety disorder, unspecified (principal); Z88.5 Allergy status to narcotic agent; Z88.8 Allergy status to other drugs, medicaments and biological substances; F31.9 Bipolar disorder, unspecified; F20.9 Schizophrenia, unspecified
CPT/HCPCS: 99281

== ENCOUNTER 2021-04-14 01:21 | Emergency (ER) | payer MEDICARE ==
[2021-04-14 01:59] VITALS: BP 109/67
--- NOTE | 2021-04-14 03:45 | Emergency Department Report ---
ED General Adult HPI - General Chief complaint: Psych Stated complaint: MH Time Seen by Provider: 04/14/21 02:32 Source: patient, EMS, RN notes reviewed, old records reviewed Mode of arrival: Ambulatory Limitations: No Limitations - History of Present Illness Initial comments: The patient was evaluated in the emergency department for symptoms described in the history of present illness. He/she was evaluated in the context of the global COVID-19 pandemic, which necessitated consideration that the patient might be at risk for infection with the virus that causes COVID-19. Institutional protocols and algorithms that pertain to the evaluation of patients at risk for COVID-19 are in a state of rapid change based on information released by regulatory bodies including the CDC and federal and state organizations. These policies and algorithms were followed during the patient's care in the emergency department. Please note that these policies, pr ocedures and recommendations changed on a rapid basis. This patient is a 41-year-old gentleman. He presents to the ER today with a complaint of "I am fine." The patient was recently seen in this department, and cleared by our psychiatric team on April 02. He presented to this department 3 days ago, and was again cleared by one of my colleagues. He presents to the ER today without headache, neck pain, chest pain, abdominal pain or shortness of breath. He denies homicidality and suicidality. He denies overdose. He indicates that he would like to be left alone. He denies additional complaints at this time. He does endorse chronic hallucinations. Improves with: none Worsens with: none - Related Data Previous Rx's Medication Instructions Recorded Last Taken Type FLUoxetine HCL [FLUoxetine] 20 mg PO DAILY #7 tablet 10/04/19 Unknown Rx OLANzapine [Zyprexa] 10 mg PO BID #14 tablet 10/04/19 Unknown Rx hydrOXYzine PAMOATE [Vistaril] 50 mg PO Q12H #14 capsule 10/04/19 Unknown Rx traZODone [Desyrel] 100 mg PO QHS #7 tablet 10/04/19 Unknown Rx Ondansetron [Zofran Odt] 4 mg PO Q8HR PRN #10 tab.rapdis 12/05/19 Unknown Rx Ondansetron [Zofran Odt] 4 mg PO Q6H #20 tab.rapdis 10/30/20 Unknown Rx cephALEXin [Keflex] 500 mg PO TID #28 cap 12/17/20 Unknown Rx FLUoxetine HCL [Prozac] 20 mg PO DAILY 30 Days #30 capsule 12/18/20 Unknown Rx traZODone [Desyrel] 50 mg PO QHS 30 Days #30 tab 12/18/20 Unknown Rx Allergies Allergy/AdvReac Type Severity Reaction Status Date / Time divalproex sodium Allergy Unknown Verified 04/14/21 01:59 [From Depakote] quetiapine [From Seroquel] Allergy Unknown Verified 04/14/21 01:59 risperidone [From Risperdal] Allergy Unknown Verified 04/14/21 01:59 ED Review of Systems ROS: Stated complaint: MH Other details as noted in HPI Constitutional: denies: fever Eyes: denies: eye discharge ENT: denies: epistaxis Respiratory: denies: cough Cardiovascular: denies: chest pain Gastrointestinal: denies: abdominal pain Genitourinary: denies: dysuria Neurological: denies: weakness Psychiatric: denies: homicidal thoughts, suicidal thoughts ED Past Medical Hx - Past Medical History Previous Medical History?: Yes Hx Psychiatric Treatment: Yes (bipolar, schizophrenia) - Surgical History Past Surgical History?: No - Social History Smoking Status: Never Smoker Substance Use Type: None - Medications Home Medications: Home Medications Medication Instructions Recorded Confirmed Last Taken Type FLUoxetine HCL [FLUoxetine] 20 mg PO DAILY #7 tablet 10/04/19 Unknown Rx OLANzapine [Zyprexa] 10 mg PO BID #14 tablet 10/04/19 Unknown Rx hydrOXYzine PAMOATE [Vistaril] 50 mg PO Q12H #14 capsule 10/04/19 Unknown Rx traZODone [Desyrel] 100 mg PO QHS #7 tablet 10/04/19 Unknown Rx Ondansetron [Zofran Odt] 4 mg PO Q8HR PRN #10 tab.rapdis 12/05/19 Unknown Rx Ondansetron [Zofran Odt] 4 mg PO Q6H #20 tab.rapdis 10/30/20 Unknown Rx cephALEXin [Keflex] 500 mg PO TID #28 cap 12/17/20 Unknown Rx FLUoxetine HCL [Prozac] 20 mg PO DAILY 30 Days #30 capsule 12/18/20 Unknown Rx traZODone [Desyrel] 50 mg PO QHS 30 Days #30 tab 12/18/20 Unknown Rx ED Physical Exam - General Limitations: No Limitations General appearance: alert, in no apparent distress - Head Head exam: Present: atraumatic, normocephalic - Eye Eye exam: Present: normal appearance, EOMI. Absent: nystagmus - ENT ENT exam: Present: normal exam, normal orophraynx, mucous membranes moist, normal external ear exam - Neck Neck exam: Present: normal inspection, full ROM. Absent: tenderness, meningismus - Respiratory Respiratory exam: Present: normal lung sounds bilaterally. Absent: respiratory distress, wheezes, rales, rhonchi, stridor, decreased breath sounds - Cardiovascular Cardiovascular Exam: Present: regular rate, normal rhythm, normal heart sounds. Absent: bradycardia, tachycardia, irregular rhythm, systolic murmur, diastolic murmur, rubs, gallop - GI/Abdominal GI/Abdominal exam: Present: soft. Absent: distended, tenderness, guarding, rebound, rigid, pulsatile mass - Rectal Rectal exam: Present: deferred - Extremities Exam Extremities exam: Present: normal inspection, full ROM, other (2+ pulses noted in the bilateral upper and lower extremities. There is no palpable cord. negative Homans sign. Muscular compartments are soft. The pelvis is stable.). Absent: pedal edema, calf tenderness - Back Exam Back exam: Present: normal inspection, full ROM. Absent: tenderness, CVA tenderness (R), CVA tenderness (L), paraspinal tenderness, vertebral tenderness - Neurological Exam Neurological exam: Present: alert, oriented X3, normal gait, other (No facial droop. Tongue midline. Extraocular movements intact bilaterally. Facial sensation intact to light touch in V1, V2, V3 distribution bilaterally. 5 and a 5 strength in 4 extremities. Sensation intact to light touch in 4 extremities.). Absent: motor sensory deficit - Psychiatric Psychiatric exam: Present: flat affect. Absent: homicidal ideation, suicidal ideation - Skin Skin exam: Present: warm, dry, intact, normal color. Absent: rash ED Course Vital Signs 04/14/21 01:55 Temperature 98.5 F Pulse Rate 84 Respiratory 16 Rate Blood Pressure 109/67 O2 Sat by Pulse 94 Oximetry ED Medical Decision Making - Lab Data Vital Signs 04/14/21 01:55 Temperature 98.5 F Pulse Rate 84 Respiratory 16 Rate Blood Pressure 109/67 O2 Sat by Pulse 94 Oximetry - Radiology Data Differential diagnosis, including but not limited to: Encounter for behavioral health screening examination, encounter for medical screening examination Assessment and plan: 41-year-old gentleman, who is awake, alert, oriented and sober. He does not meet criteria for 1013 hold or involuntary hold. He denies acute medical complaints to myself. He was recently seen in this department by one of my colleagues in the psychiatry team, had nonactionable laboratory studies, and was cleared by the psychiatry team. He was also seen by my colleague on April 11, and again discharge. The patient appears unkempt, and disheveled, and is likely homeless/undomiciled. He is resting comfortably on the chair, and in no acute distress. I suspect that this patient is presenting for the purposes of secondary gain, i.e. food and care home. He does not appear to have an emergent medical condition present. He does not appear to be decompensated psychiatrically to the point where he would require 1013 or involuntary hold. He will be discharged with instructions to follow-up as an outpatient. Critical care attestation.: If time is entered above; I have spent that time in minutes in the direct care of this critically ill patient, excluding procedure time. ED Disposition Clinical Impression: Encounter for medical screening examination, Encounter for behavioral health screening Disposition: HOME / SELF CARE / HOMELESS Is pt being admited?: No Does the pt Need Aspirin: No Condition: Good Instructions: Health Maintenance, Male Additional Instructions: Please continue current outpatient medications. Please follow-up with outpatient resources that were recently provided to the patient. Please continue your current outpatient medications. Please follow-up with a primary care doctor or health department within the next 2 weeks. Please return to the emergency room right away with new pain, worsened pain, migration of pain, projectile vomiting, change in mental status, confusion, inability to tolerate liquid feeds, new, worsened or different symptoms not present on the initial emergency room evaluation. Referrals: [facility] [Outside] - 3-5 Days [facility] [Outside] - 3-5 Days
== END 2021-04-14 07:46 | disposition home or self-care (01) ==
LOC: ED 01:21
DX: Z00.00 Encounter for general adult medical examination without abnormal findings (principal); F31.9 Bipolar disorder, unspecified; F20.9 Schizophrenia, unspecified; Z88.8 Allergy status to other drugs, medicaments and biological substances; Z79.899 Other long term (current) drug therapy
CPT/HCPCS: 99282

== ENCOUNTER 2021-04-15 19:55 | Emergency (ER) | payer MEDICARE ==
--- NOTE | 2021-04-15 20:21 | Event Note ---
ED Screening Note ED Screening Note: Presents to ED c/o of Suicidal ideation and auditory hallucinations. This initial assessment/diagnostic orders/clinical plan/treatment(s) is/are subject to change based on patients health status, clinical progression and re- assessment by fellow clinical providers in the ED. Further treatment and workup at subsequent clinical providers discretion. Patient/guardian urged not to elope from the ED as their condition may be serious if not clinically assessed and managed. Initial orders include: PSYCH protocol consider 1013
--- NOTE | 2021-04-15 21:20 | Emergency Department Report ---
ED General Adult HPI - General Chief complaint: Psych Stated complaint: HEARING VOICES Time Seen by Provider: 04/15/21 21:05 Source: patient Mode of arrival: Ambulatory Limitations: No Limitations - History of Present Illness Initial comments: The patient presents to emergency department the chief complaint of suicidal and homicidal ideations. Patient states he is hearing voices telling him to hurt others. He also states the voices are telling him to hurt himself. -: unknown Severity scale (0 -10): 0 Consistency: constant Improves with: none Worsens with: none Associated Symptoms: denies other symptoms Treatments Prior to Arrival: none - Related Data Previous Rx's Medication Instructions Recorded Last Taken Type FLUoxetine HCL [FLUoxetine] 20 mg PO DAILY #7 tablet 10/04/19 Unknown Rx OLANzapine [Zyprexa] 10 mg PO BID #14 tablet 10/04/19 Unknown Rx hydrOXYzine PAMOATE [Vistaril] 50 mg PO Q12H #14 capsule 10/04/19 Unknown Rx traZODone [Desyrel] 100 mg PO QHS #7 tablet 10/04/19 Unknown Rx Ondansetron [Zofran Odt] 4 mg PO Q8HR PRN #10 tab.rapdis 12/05/19 Unknown Rx Ondansetron [Zofran Odt] 4 mg PO Q6H #20 tab.rapdis 10/30/20 Unknown Rx cephALEXin [Keflex] 500 mg PO TID #28 cap 12/17/20 Unknown Rx FLUoxetine HCL [Prozac] 20 mg PO DAILY 30 Days #30 capsule 12/18/20 Unknown Rx traZODone [Desyrel] 50 mg PO QHS 30 Days #30 tab 12/18/20 Unknown Rx Allergies Allergy/AdvReac Type Severity Reaction Status Date / Time divalproex sodium Allergy Unknown Verified 04/14/21 01:59 [From Depakote] quetiapine [From Seroquel] Allergy Unknown Verified 04/14/21 01:59 risperidone [From Risperdal] Allergy Unknown Verified 04/14/21 01:59 ED Review of Systems ROS: Stated complaint: HEARING VOICES Other details as noted in HPI Constitutional: denies: chills, fever Eyes: denies: eye pain, eye discharge, vision change ENT: denies: ear pain, throat pain Respiratory: denies: cough, shortness of breath, wheezing Cardiovascular: denies: chest pain, palpitations Endocrine: no symptoms reported Gastrointestinal: denies: abdominal pain, nausea, diarrhea Genitourinary: denies: urgency, dysuria Musculoskeletal: denies: back pain, joint swelling, arthralgia Skin: denies: rash, lesions Neurological: denies: headache, weakness, paresthesias Psychiatric: auditory hallucinations, homicidal thoughts, suicidal thoughts. denies: anxiety, depression Hematological/Lymphatic: denies: easy bleeding, easy bruising ED Past Medical Hx - Past Medical History Previous Medical History?: Yes Hx Hypertension: Yes Hx Psychiatric Treatment: Yes (bipolar, schizophrenia) - Surgical History Past Surgical History?: No - Social History Smoking Status: Never Smoker Substance Use Type: None - Medications Home Medications: Home Medications Medication Instructions Recorded Confirmed Last Taken Type FLUoxetine HCL [FLUoxetine] 20 mg PO DAILY #7 tablet 10/04/19 Unknown Rx OLANzapine [Zyprexa] 10 mg PO BID #14 tablet 10/04/19 Unknown Rx hydrOXYzine PAMOATE [Vistaril] 50 mg PO Q12H #14 capsule 10/04/19 Unknown Rx traZODone [Desyrel] 100 mg PO QHS #7 tablet 10/04/19 Unknown Rx Ondansetron [Zofran Odt] 4 mg PO Q8HR PRN #10 tab.rapdis 12/05/19 Unknown Rx Ondansetron [Zofran Odt] 4 mg PO Q6H #20 tab.rapdis 10/30/20 Unknown Rx cephALEXin [Keflex] 500 mg PO TID #28 cap 12/17/20 Unknown Rx FLUoxetine HCL [Prozac] 20 mg PO DAILY 30 Days #30 capsule 12/18/20 Unknown Rx traZODone [Desyrel] 50 mg PO QHS 30 Days #30 tab 12/18/20 Unknown Rx ED Physical Exam - General Limitations: No Limitations General appearance: alert, in no apparent distress - Head Head exam: Present: atraumatic, normocephalic - Eye Eye exam: Present: normal appearance, PERRL, EOMI - ENT ENT exam: Present: mucous membranes moist - Neck Neck exam: Present: normal inspection - Respiratory Respiratory exam: Present: normal lung sounds bilaterally. Absent: respiratory distress - Cardiovascular Cardiovascular Exam: Present: regular rate, normal rhythm. Absent: systolic murmur, diastolic murmur, rubs, gallop - GI/Abdominal GI/Abdominal exam: Present: soft, normal bowel sounds. Absent: distended, tenderness - Rectal Rectal exam: Present: deferred - Extremities Exam Extremities exam: Present: normal inspection - Back Exam Back exam: Present: normal inspection - Neurological Exam Neurological exam: Present: alert, oriented X3, CN II-XII intact. Absent: motor sensory deficit - Psychiatric Psychiatric exam: Present: flat affect, homicidal ideation, suicidal ideation - Skin Skin exam: Present: warm, dry, intact, normal color. Absent: rash ED Course Vital Signs 04/15/21 04/15/21 04/15/21 20:19 20:22 23:19 Temperature 97.9 F Pulse Rate 78 Respiratory 18 Rate Blood Pressure 112/51 O2 Sat by Pulse 96 95 Oximetry ED Medical Decision Making - Lab Data Result diagrams: 04/15/21 21:16 04/15/21 21:16 Lab Results 04/15/21 04/15/21 04/15/21 Range/Units 21:16 21:16 21:16 WBC 5.9 (4.5-11.0) K/mm3 RBC 4.79 (3.65-5.03) M/mm3 Hgb 14.6 (11.8-15.2) gm/dl Hct 43.8 (35.5-45.6) % MCV 91 (84-94) fl MCH 31 (28-32) pg MCHC 33 (32-34) % RDW 15.6 H (13.2-15.2) % Plt Count 227 (140-440) K/mm3 Lymph % (Auto) 38.0 H (13.4-35.0) % [place] % (Auto) 9.4 H (0.0-7.3) % Eos % (Auto) 2.6 (0.0-4.3) % Baso % (Auto) 1.2 (0.0-1.8) % Lymph # (Auto) 2.2 (1.2-5.4) K/mm3 [place] # (Auto) 0.6 (0.0-0.8) K/mm3 Eos # (Auto) 0.2 (0.0-0.4) K/mm3 Baso # (Auto) 0.1 (0.0-0.1) K/mm3 Seg Neutrophils % 48.8 (40.0-70.0) % Seg Neutrophils # 2.9 (1.8-7.7) K/mm3 Sodium (137-145) mmol/L Potassium (3.6-5.0) mmol/L Chloride (98-107) mmol/L Carbon Dioxide (22-30) mmol/L Anion Gap mmol/L BUN (9-20) mg/dL Creatinine (0.8-1.3) mg/dL Estimated GFR ml/min BUN/Creatinine Ratio % Glucose (75-100) mg/dL Calcium (8.4-10.2) mg/dL Total Bilirubin (0.1-1.2) mg/dL AST (5-40) units/L ALT (7-56) units/L Alkaline Phosphatase (35-129) units/L Total Protein (6.3-8.2) g/dL Albumin (3.9-5) g/dL Albumin/Globulin Ratio % Salicylates < 0.3 L (2.8-20.0) mg/dL Acetaminophen 5.0 L (10.0-30.0) ug/mL Plasma/Serum Alcohol (0-0.07) % 04/15/21 04/15/21 Range/Units 21:16 21:16 WBC (4.5-11.0) K/mm3 RBC (3.65-5.03) M/mm3 Hgb (11.8-15.2) gm/dl Hct (35.5-45.6) % MCV (84-94) fl MCH (28-32) pg MCHC (32-34) % RDW (13.2-15.2) % Plt Count (140-440) K/mm3 Lymph % (Auto) (13.4-35.0) % [place] % (Auto) (0.0-7.3) % Eos % (Auto) (0.0-4.3) % Baso % (Auto) (0.0-1.8) % Lymph # (Auto) (1.2-5.4) K/mm3 [place] # (Auto) (0.0-0.8) K/mm3 Eos # (Auto) (0.0-0.4) K/mm3 Baso # (Auto) (0.0-0.1) K/mm3 Seg Neutrophils % (40.0-70.0) % Seg Neutrophils # (1.8-7.7) K/mm3 Sodium 138 (137-145) mmol/L Potassium 3.6 (3.6-5.0) mmol/L Chloride 101.6 (98-107) mmol/L Carbon Dioxide 24 (22-30) mmol/L Anion Gap 16 mmol/L BUN 6 L (9-20) mg/dL Creatinine 0.7 L (0.8-1.3) mg/dL Estimated GFR > 60 ml/min BUN/Creatinine Ratio 9 % Glucose 80 (75-100) mg/dL Calcium 8.8 (8.4-10.2) mg/dL Total Bilirubin 0.30 (0.1-1.2) mg/dL AST 18 (5-40) units/L ALT 10 (7-56) units/L Alkaline Phosphatase 96 (35-129) units/L Total Protein 6.4 (6.3-8.2) g/dL Albumin 3.8 L (3.9-5) g/dL Albumin/Globulin Ratio 1.5 % Salicylates (2.8-20.0) mg/dL Acetaminophen (10.0-30.0) ug/mL Plasma/Serum Alcohol < 0.01 (0-0.07) % - Medical Decision Making 1013 applied Awaiting medical clearance Awaiting mental health evaluation Critical care attestation.: If time is entered above; I have spent that time in minutes in the direct care of this critically ill patient, excluding procedure time. ED Disposition Clinical Impression: Auditory hallucinations, Homicidal ideations, Suicidal ideations Disposition: [address] [place] [address] Is pt being admited?: No Does the pt Need Aspirin: No Condition: Stable Referrals: PRIMARY CARE, [Primary Care Provider] - 3-5 Days
[2021-04-15 21:51] LABS: Basophils # (Auto) 0.1 K/mm3 (0.0-0.1); Basophils % (Auto) 1.2 % (0.0-1.8); Eosinophils # (Auto) 0.2 K/mm3 (0.0-0.4); Eosinophils % (Auto) 2.6 % (0.0-4.3); Hematocrit 43.8 % (35.5-45.6); Hemoglobin 14.6 gm/dl (11.8-15.2); Lymphocytes # (Auto) 2.2 K/mm3 (1.2-5.4); Mean Corpuscular HGB Conc 33 % (32-34); Mean Corpuscular Volume 91 fl (84-94); Monocytes # (Auto) 0.6 K/mm3 (0.0-0.8); Monocytes % (Auto) 9.4 % (0.0-7.3); Platelet Count 227 K/mm3 (140-440); Red Blood Count 4.79 M/mm3 (3.65-5.03); Red Cell Distribution Width 15.6 % (13.2-15.2)
[2021-04-15 22:08] LABS: Alanine Aminotransferase 10 units/L (7-56); Albumin 3.8 g/dL (3.9-5); Blood Urea Nitrogen 6 mg/dL (9-20); Calcium 8.8 mg/dL (8.4-10.2); Hemolysis Index 13
[2021-04-15 22:36] LABS: BUN/Creatinine Ratio 9
[2021-04-16 07:51] VITALS: BP 110/60
--- NOTE | 2021-04-16 09:02 | Consultation ---
History of Present Illness - Reason for Consult Consult date: 04/16/21 Reason for consult: MHE - History of Present Psychiatric Illness The patient was seen today. He initially tells me that he didn't feel like talking and to come back. Hiss responses are vague. He says he came to the hospital because he didn't feel good. When asking the patient why was he not feeling well, he says "I don't know." He then says "I have schizophrenia." I ask the patient was he hallucinating, he says "I was seeing things." I ask him what was he seeing, he says "I don't know." I ask the patient how long has he been seeing things, he says "two months, maybe two days." He denies any illicit drug use or alcohol. When asking the patient was he suicidal or homicidal, he replied "no, I just don't feel good." PAST PSYCHIATRIC HISTORY: Diagnoses: schizophrenia Suicide attempts or Self-harm behavior: Denies Prior psychiatric hospitalizations: Yes Substance Abuse history: Denies Previous psychiatric medications tried: Denies Outpatient treatment: Denies PAST MEDICAL HISTORY: None reported or document Family Psychiatric History: None reported or documented SOCIAL HISTORY Marital Status: Single Living Arrangements: "lives at a house" Employment Status: Unemployed Access to guns/weapons: Denies Education: History of Abuse: Denies Legal History: unknown REVIEW OF SYSTEMS Constitutional: Negative for weight loss ENT: Negative for stridor Respiratory: Negative for cough or hemoptysis All other systems reviewed and are negative MENTAL STATUS EXAMINATION General Appearance and Behavior: Age appropriate, good hygiene, wearing appropriate clothes. calm, cooperative Cooperation: Cooperative Psychomotor Behavior: Psychomotor normal Mood: anxious Affect and affective range: Congruent with stated mood Thought Process: circumstantial Thought Content: None Speech: normal tone and pace Suicidal Ideation: Denies Homicidal Ideation: Denies Hallucinations: seeing things when he came in Delusions: None elicited Impulse Control: Normal Insight and Judgment: Limited Memory: Limited Attention: attentive Orientation: a/o x 3 Assessment (1) Mental Health Evaluation Current Visit: Yes Status: Acute Treatment Plan d/c 1013 Script: Olanzapine 5mg po daily The patient to comply with previously prescribed medications Risks, benefits and alternatives of medications discussed with the patient, qu estions answered and consent obtained from patient. PSYCHOTHERAPY: Supportive psychotherapy provided MEDICAL: Per primary team DELIRIUM PRECAUTIONS: Please re-orient patient frequently, keep lights on during the day, and minimize benzodiazepines and opiates as these medications could worsen patient's confusion. FLAT FINISHER: Defer to primary DISPOSITION: Do not recommend acute psychiatric inpatient treatment. The patient understands that if SI/HI or fear of endangerment are to arise he is to seek immediate assistance. The brickmason contractor to further discuss safety plan The brickmason contractor to give the patient all necessary outpatient resources FOLLOW-UP: sign off. Thanks Case staffed with Dr. Lizarraga Medications and Allergies Allergies Allergy/AdvReac Type Severity Reaction Status Date / Time divalproex sodium Allergy Unknown Verified 04/14/21 01:59 [From Depakote] quetiapine [From Seroquel] Allergy Unknown Verified 04/14/21 01:59 risperidone [From Risperdal] Allergy Unknown Verified 04/14/21 01:59 Home Medications Medication Instructions Recorded Confirmed Last Taken Type FLUoxetine HCL [FLUoxetine] 20 mg PO DAILY #7 tablet 10/04/19 Unknown Rx OLANzapine [Zyprexa] 10 mg PO BID #14 tablet 10/04/19 Unknown Rx hydrOXYzine PAMOATE [Vistaril] 50 mg PO Q12H #14 capsule 10/04/19 Unknown Rx traZODone [Desyrel] 100 mg PO QHS #7 tablet 10/04/19 Unknown Rx Ondansetron [Zofran Odt] 4 mg PO Q8HR PRN #10 tab.rapdis 12/05/19 Unknown Rx Ondansetron [Zofran Odt] 4 mg PO Q6H #20 tab.rapdis 10/30/20 Unknown Rx cephALEXin [Keflex] 500 mg PO TID #28 cap 12/17/20 Unknown Rx FLUoxetine HCL [Prozac] 20 mg PO DAILY 30 Days #30 capsule 12/18/20 Unknown Rx traZODone [Desyrel] 50 mg PO QHS 30 Days #30 tab 12/18/20 Unknown Rx OLANZapine [Olanzapine] 5 mg PO DAILY #30 tablet 04/16/21 Unknown Rx Mental Status Exam - Vital signs Last Vital Signs Temp 98.6 F 04/16/21 07:50 Pulse 83 04/16/21 07:50 Resp 20 04/16/21 07:50 BP 110/60 04/16/21 07:50 Pulse Ox 100 04/16/21 07:50 Results Result Diagrams: 04/15/21 21:16 04/15/21 21:16 Abnormal lab results 04/15/21 04/15/21 04/15/21 Range/Units 21:16 21:16 21:16 RDW 15.6 H (13.2-15.2) % Lymph % (Auto) 38.0 H (13.4-35.0) % Wilcox % (Auto) 9.4 H (0.0-7.3) % BUN (9-20) mg/dL Creatinine (0.8-1.3) mg/dL Albumin (3.9-5) g/dL Salicylates < 0.3 L (2.8-20.0) mg/dL Acetaminophen 5.0 L (10.0-30.0) ug/mL 04/15/21 Range/Units 21:16 RDW (13.2-15.2) % Lymph % (Auto) (13.4-35.0) % Wilcox % (Auto) (0.0-7.3) % BUN 6 L (9-20) mg/dL Creatinine 0.7 L (0.8-1.3) mg/dL Albumin 3.8 L (3.9-5) g/dL Salicylates (2.8-20.0) mg/dL Acetaminophen (10.0-30.0) ug/mL All other labs normal.
--- NOTE | 2021-04-16 10:47 | Event Note ---
Date: 04/16/21 Patient evaluated by our mental health colleagues and it was determined that the patient did not meet inpatient criteria. Patient voicing chronic auditory hallucinations and is not homicidal suicidal at this time. Patient seems to be here for possible secondary gain. Patient prescribed medications for stabilization and has 1013 has been rescinded. Please see psychiatry note as follows: Psychiatric Consult Note Patient Name: BANDAR YUEN Date of : 78 Patient Status: Emergency Emergency Provider: WALKER MOORE Date: 04/16/21 09:02 Initialization Date: 04/16/21 09:02 History of Present Illness - Reason for Consult Consult date: 04/16/21 Reason for consult: MHE - History of Present Psychiatric Illness The patient was seen today. He initially tells me that he didn't feel like talking and to come back. Hiss responses are vague. He says he came to the [facility] because he didn't feel good. When asking the patient why was he not feeling well, he says "I don't know." He then says "I have schizophrenia." I ask the patient was he hallucinating, he says "I was seeing things." I ask him what was he seeing, he says "I don't know." I ask the patient how long has he been seeing things, he says "two months, maybe two days." He denies any illicit drug use or alcohol. When asking the patient was he suicidal or homicidal, he replied "no, I just don't feel good." PAST PSYCHIATRIC HISTORY: Diagnoses: schizophrenia Suicide attempts or Self-harm behavior: Denies Prior psychiatric hospitalizations: Yes Substance Abuse history: Denies Previous psychiatric medications tried: Denies Outpatient treatment: Denies PAST MEDICAL HISTORY: None reported or document Family Psychiatric History: None reported or documented SOCIAL HISTORY Marital Status: Single Living Arrangements: "lives at a house" Employment Status: Unemployed Access to guns/weapons: Denies Education: History of Abuse: Denies Legal History: unknown REVIEW OF SYSTEMS Constitutional: Negative for weight loss ENT: Negative for stridor Respiratory: Negative for cough or hemoptysis All other systems reviewed and are negative MENTAL STATUS EXAMINATION General Appearance and Behavior: Age appropriate, good hygiene, wearing appropriate clothes. calm, cooperative Cooperation: Cooperative Psychomotor Behavior: Psychomotor normal Mood: anxious Affect and affective range: Congruent with stated mood Thought Process: circumstantial Thought Content: None Speech: normal tone and pace Suicidal Ideation: Denies Homicidal Ideation: Denies Hallucinations: seeing things when he came in Delusions: None elicited Impulse Control: Normal Insight and Judgment: Limited Memory: Limited Attention: attentive Orientation: a/o x 3 Assessment (1) Mental Health Evaluation Current Visit: Yes Status: Acute Treatment Plan d/c 1013 Script: Olanzapine 5mg po daily The patient to comply with previously prescribed medications Risks, benefits and alternatives of medications discussed with the patient, questions answered and consent obtained from patient. PSYCHOTHERAPY: Supportive psychotherapy provided MEDICAL: Per primary team DELIRIUM PRECAUTIONS: Please re-orient patient frequently, keep lights on during the day, and minimize benzodiazepines and opiates as these medications could worsen patient's confusion. BIOFUELS PRODUCTION MANAGER: Defer to primary DISPOSITION: Do not recommend acute psychiatric inpatient treatment. The patient understands that if SI/HI or fear of endangerment are to arise he is to seek immediate assistance. The wellness manager to further discuss safety plan The wellness manager to give the patient all necessary outpatient resources FOLLOW-UP: sign off. Thanks Case staffed with Dr. Lizarraga
== END 2021-04-16 11:45 | disposition home or self-care (01) ==
LOC: EEVIPCON 19:55 → ED 19:55
DX: R44.0 Auditory hallucinations (principal); R45.850 Homicidal ideations; R45.851 Suicidal ideations; Z88.1 Allergy status to other antibiotic agents; Z88.8 Allergy status to other drugs, medicaments and biological substances; Z20.822 Contact with and (suspected) exposure to COVID-19; F31.9 Bipolar disorder, unspecified
CPT/HCPCS: 36415; 80053; 85025; 99284; U0003; 80320; G0480

== ENCOUNTER 2021-04-17 05:59 | Emergency (ER) | payer MEDICARE | END 2021-04-17 07:20 | disposition left against medical advice (07) | LOC: ED 05:59 | DX: J00 Acute nasopharyngitis [common cold] (principal); Z53.21 Procedure and treatment not carried out due to patient leaving prior to being seen by health care provider ==

== ENCOUNTER 2021-04-18 20:50 | Emergency (ER) | payer MEDICARE ==
[2021-04-18 21:16] VITALS: BP 133/66
--- NOTE | 2021-04-18 21:19 | Emergency Department Report ---
ED Psych HPI - General Chief Complaint: Anxiety Stated Complaint: RX REFILL Time Seen by Provider: 04/18/21 21:13 Source: patient Mode of arrival: Ambulatory Limitations: No Limitations - History of Present Illness Initial Comments: CC: I just want to get checked out by the doctor. HPI: This is a 41 yo male with hx of schizophrenia who "just wants to get checked out". He wants medication for anxiety. No endorsement of SI HI hallucinations. Patient was evaluated at this hospital by MH team. Given script for Olanzapine. MD Complaint: other (I want something for my anxiety) -: Gradual History of same: Yes Quality: constant Improves With: none Worsens With: none Context: not taking psychiatric Associated Symptoms: denies other symptoms - Related Data Previous Rx's Medication Instructions Recorded Last Taken Type FLUoxetine HCL [FLUoxetine] 20 mg PO DAILY #7 tablet 10/04/19 Unknown Rx OLANzapine [Zyprexa] 10 mg PO BID #14 tablet 10/04/19 Unknown Rx hydrOXYzine PAMOATE [Vistaril] 50 mg PO Q12H #14 capsule 10/04/19 Unknown Rx traZODone [Desyrel] 100 mg PO QHS #7 tablet 10/04/19 Unknown Rx Ondansetron [Zofran Odt] 4 mg PO Q8HR PRN #10 tab.rapdis 12/05/19 Unknown Rx Ondansetron [Zofran Odt] 4 mg PO Q6H #20 tab.rapdis 10/30/20 Unknown Rx cephALEXin [Keflex] 500 mg PO TID #28 cap 12/17/20 Unknown Rx FLUoxetine HCL [Prozac] 20 mg PO DAILY 30 Days #30 capsule 12/18/20 Unknown Rx traZODone [Desyrel] 50 mg PO QHS 30 Days #30 tab 12/18/20 Unknown Rx OLANZapine [Olanzapine] 5 mg PO DAILY #30 tablet 04/16/21 Unknown Rx Allergies Allergy/AdvReac Type Severity Reaction Status Date / Time divalproex sodium Allergy Unknown Verified 04/14/21 01:59 [From Depakote] quetiapine [From Seroquel] Allergy Unknown Verified 04/14/21 01:59 risperidone [From Risperdal] Allergy Unknown Verified 04/14/21 01:59 ED Review of Systems ROS: Stated complaint: RX REFILL Other details as noted in HPI Comment: All other systems reviewed and negative Constitutional: denies: chills, fever, malaise Respiratory: denies: cough, shortness of breath Cardiovascular: denies: chest pain Gastrointestinal: denies: abdominal pain, nausea, vomiting ED Past Medical Hx - Past Medical History Previous Medical History?: Yes Hx Hypertension: Yes Hx Diabetes: Yes Hx Renal Disease: Yes (esrd) Hx Psychiatric Treatment: Yes (bipolar, schizophrenia) Additional medical history: Parkinsons disease - Social History Smoking Status: Never Smoker Substance Use Type: None - Medications Home Medications: Home Medications Medication Instructions Recorded Confirmed Last Taken Type FLUoxetine HCL [FLUoxetine] 20 mg PO DAILY #7 tablet 10/04/19 Unknown Rx OLANzapine [Zyprexa] 10 mg PO BID #14 tablet 10/04/19 Unknown Rx hydrOXYzine PAMOATE [Vistaril] 50 mg PO Q12H #14 capsule 10/04/19 Unknown Rx traZODone [Desyrel] 100 mg PO QHS #7 tablet 10/04/19 Unknown Rx Ondansetron [Zofran Odt] 4 mg PO Q8HR PRN #10 tab.rapdis 12/05/19 Unknown Rx Ondansetron [Zofran Odt] 4 mg PO Q6H #20 tab.rapdis 10/30/20 Unknown Rx cephALEXin [Keflex] 500 mg PO TID #28 cap 12/17/20 Unknown Rx FLUoxetine HCL [Prozac] 20 mg PO DAILY 30 Days #30 capsule 12/18/20 Unknown Rx traZODone [Desyrel] 50 mg PO QHS 30 Days #30 tab 12/18/20 Unknown Rx OLANZapine [Olanzapine] 5 mg PO DAILY #30 tablet 04/16/21 Unknown Rx ED Physical Exam - General Limitations: No Limitations General appearance: alert, in no apparent distress, other (Wearing hospital scrubs disheveled poor hygiene) - Head Head exam: Present: atraumatic, normocephalic - Eye Eye exam: Present: normal appearance - ENT ENT exam: Present: mucous membranes moist - Neck Neck exam: Present: normal inspection - Respiratory Respiratory exam: Present: normal lung sounds bilaterally. Absent: respiratory distress, wheezes, rales, stridor - Cardiovascular Cardiovascular Exam: Present: regular rate, normal rhythm, normal heart sounds. Absent: systolic murmur, diastolic murmur, rubs, gallop - GI/Abdominal GI/Abdominal exam: Present: soft, normal bowel sounds. Absent: distended, tenderness, guarding, rebound - Rectal Rectal exam: Present: deferred - Extremities Exam Extremities exam: Present: normal inspection - Back Exam Back exam: Present: normal inspection - Neurological Exam Neurological exam: Present: alert, oriented X3, normal gait - Psychiatric Psychiatric exam: Present: flat affect - Skin Skin exam: Present: warm, dry, intact, normal color. Absent: rash ED Course Vital Signs 04/18/21 21:12 Temperature 98.6 F Pulse Rate 84 Respiratory 18 Rate Blood Pressure 133/66 O2 Sat by Pulse 95 Oximetry ED Medical Decision Making - Medical Decision Making Mr. Olivas is a 41-year-old male history of schizophrenia who states "I want something for my nerves. I want to get checked out." Patient has been evaluated numerous times this month in the emergency department, twice by psychiatric team. Patient does not appear to be a harm to himself or others. He is discharged to self-care. I suspect homelessness is a motivation for him to be present in the emergency department Mr. Power recently received referral to outpatient resources 2 days ago. Critical care attestation.: If time is entered above; I have spent that time in minutes in the direct care of this critically ill patient, excluding procedure time. ED Disposition Clinical Impression: Schizophrenia Disposition: 01 HOME / SELF CARE / HOMELESS Is pt being admited?: No Does the pt Need Aspirin: No Condition: Stable
== END 2021-04-18 22:10 | disposition home or self-care (01) ==
LOC: ED 20:50
DX: F20.9 Schizophrenia, unspecified (principal); E11.9 Type 2 diabetes mellitus without complications; F31.9 Bipolar disorder, unspecified; I12.0 Hypertensive chronic kidney disease with stage 5 chronic kidney disease or end stage renal disease; N18.6 End stage renal disease; Z88.8 Allergy status to other drugs, medicaments and biological substances; Z79.899 Other long term (current) drug therapy
CPT/HCPCS: 99282

== ENCOUNTER 2021-04-20 03:17 | Emergency (ER) | payer MEDICARE | END 2021-04-20 07:00 | disposition home or self-care (01) | LOC: ED 03:17 | DX: R11.0 Nausea (principal); Z53.21 Procedure and treatment not carried out due to patient leaving prior to being seen by health care provider ==

== ENCOUNTER 2021-04-21 01:56 | Emergency (ER) | payer MEDICARE ==
[2021-04-21 02:12] VITALS: BP 124/78
== END 2021-04-21 08:00 | disposition left against medical advice (07) ==
LOC: ED 01:56
DX: Z13.30 Encounter for screening examination for mental health and behavioral disorders, unspecified (principal); Z53.21 Procedure and treatment not carried out due to patient leaving prior to being seen by health care provider

== ENCOUNTER 2021-04-23 21:03 | Emergency (ER) | payer MEDICARE ==
--- NOTE | 2021-04-23 21:55 | Emergency Department Report ---
HPI - General Chief Complaint: Psych Time Seen by Provider: 04/23/21 21:32 - HPI HPI: This is a 41-year-old male presents to the emergency department for a mental health evaluation. He has a history of schizophrenia. He complains of hallucinations in which he is having "nightmares coming out of my soul" while awake. He admits to auditory hallucinations in which people are talking to him even though there is nobody around him. He denies any suicidal or homicidal ideations. Initially the patient denied being on any medications. This patient has been seen in this emergency department multiple times for mental health evaluations and was recently placed on olanzapine. The patient says "I tried that and it worked a little but it is not good enough." ED Past Medical Hx - Past Medical History Hx Hypertension: Yes Hx Diabetes: Yes Hx Renal Disease: Yes (esrd) Hx Psychiatric Treatment: Yes (bipolar, schizophrenia) Additional medical history: Parkinsons disease - Social History Smoking Status: Never Smoker Substance Use Type: None - Medications Home Medications: Home Medications Medication Instructions Recorded Confirmed Last Taken Type FLUoxetine HCL [FLUoxetine] 20 mg PO DAILY #7 tablet 10/04/19 Unknown Rx OLANzapine [Zyprexa] 10 mg PO BID #14 tablet 10/04/19 Unknown Rx hydrOXYzine PAMOATE [Vistaril] 50 mg PO Q12H #14 capsule 10/04/19 Unknown Rx traZODone [Desyrel] 100 mg PO QHS #7 tablet 10/04/19 Unknown Rx Ondansetron [Zofran Odt] 4 mg PO Q8HR PRN #10 tab.rapdis 12/05/19 Unknown Rx Ondansetron [Zofran Odt] 4 mg PO Q6H #20 tab.rapdis 10/30/20 Unknown Rx cephALEXin [Keflex] 500 mg PO TID #28 cap 12/17/20 Unknown Rx FLUoxetine HCL [Prozac] 20 mg PO DAILY 30 Days #30 capsule 12/18/20 Unknown Rx traZODone [Desyrel] 50 mg PO QHS 30 Days #30 tab 12/18/20 Unknown Rx OLANZapine [Olanzapine] 5 mg PO DAILY #30 tablet 04/16/21 Unknown Rx ED Review of Systems ROS: Stated complaint: STOMACH VIRUS, MH Other details as noted in HPI Comment: All other systems reviewed and negative Constitutional: denies: chills, fever Eyes: denies: eye pain, vision change ENT: denies: ear pain, throat pain Respiratory: denies: cough, shortness of breath Cardiovascular: denies: chest pain, palpitations Gastrointestinal: denies: abdominal pain, vomiting Musculoskeletal: denies: back pain, arthralgia Neurological: denies: headache, weakness Psychiatric: anxiety, auditory hallucinations, visual hallucinations. denies: homicidal thoughts, suicidal thoughts Physical Exam - Physical Exam Vital Signs: Vital Signs 04/23/21 21:18 Temperature 98.8 F Pulse Rate 80 Respiratory 18 Rate Blood Pressure 132/69 [Left] O2 Sat by Pulse 97 Oximetry Physical Exam: GENERAL: The patient is well-developed well-nourished. HENT: Normocephalic. Atraumatic. Patient has moist mucous membranes. EYES: Extraocular motions are intact. NECK: Supple. Trachea is midline. CHEST/LUNGS: Clear to auscultation. There is no respiratory distress noted. HEART/CARDIOVASCULAR: Regular. There is no tachycardia. There is no murmur. ABDOMEN: Abdomen is soft, nontender. Patient has normal bowel sounds. SKIN: Skin is warm and dry. NEURO: The patient is awake, alert, and oriented. The patient is cooperative. Normal speech. MUSCULOSKELETAL: There is no tenderness or deformity. There is no limitation range of motion. ED Course Vital Signs 04/23/21 21:18 Temperature 98.8 F Pulse Rate 80 Respiratory 18 Rate Blood Pressure 132/69 [Left] O2 Sat by Pulse 97 Oximetry ED Medical Decision Making - Lab Data Result diagrams: 04/23/21 22:00 04/23/21 22:00 Lab Results 04/23/21 04/23/21 04/23/21 Range/Units 22:00 22:00 22:00 WBC 10.6 (4.5-11.0) K/mm3 RBC 4.80 (3.65-5.03) M/mm3 Hgb 14.8 (11.8-15.2) gm/dl Hct 43.1 (35.5-45.6) % MCV 90 (84-94) fl MCH 31 (28-32) pg MCHC 34 (32-34) % RDW 15.7 H (13.2-15.2) % Plt Count 191 (140-440) K/mm3 Lymph % (Auto) 24.5 (13.4-35.0) % Porter % (Auto) 6.6 (0.0-7.3) % Eos % (Auto) 1.3 (0.0-4.3) % Baso % (Auto) 1.4 (0.0-1.8) % Lymph # (Auto) 2.6 (1.2-5.4) K/mm3 Porter # (Auto) 0.7 (0.0-0.8) K/mm3 Eos # (Auto) 0.1 (0.0-0.4) K/mm3 Baso # (Auto) 0.2 H (0.0-0.1) K/mm3 Seg Neutrophils % 66.2 (40.0-70.0) % Seg Neutrophils # 7.0 (1.8-7.7) K/mm3 Sodium 137 (137-145) mmol/L Potassium 4.0 (3.6-5.0) mmol/L Chloride 102.4 (98-107) mmol/L Carbon Dioxide 25 (22-30) mmol/L Anion Gap 14 mmol/L BUN 7 L (9-20) mg/dL Creatinine 0.7 L (0.8-1.3) mg/dL Estimated GFR > 60 ml/min BUN/Creatinine Ratio 10 % Glucose 96 (75-100) mg/dL Calcium 8.7 (8.4-10.2) mg/dL Urine Color (Yellow) Urine Turbidity (Clear) Urine pH (5.0-7.0) Ur Specific [place] (1.003-1.030) Urine Protein (Negative) mg/dL Urine Glucose (UA) (Negative) mg/dL Urine Ketones (Negative) mg/dL Urine Blood (Negative) Urine Nitrite (Negative) Urine Bilirubin (Negative) Urine Urobilinogen (<2.0) mg/dL Ur Leukocyte Esterase (Negative) Urine WBC (Auto) (0.0-6.0) /HPF Urine RBC (Auto) (0.0-6.0) /HPF Urine Opiates Screen Urine Methadone Screen Ur Barbiturates Screen Ur Phencyclidine Scrn Ur Amphetamines Screen U Benzodiazepines Scrn Urine Cocaine Screen U Marijuana (THC) Screen Drugs of Abuse Note Plasma/Serum Alcohol < 0.01 (0-0.07) % 11/04/21 11/04/21 Range/Units 22:44 22:44 WBC (4.5-11.0) K/mm3 RBC (3.65-5.03) M/mm3 Hgb (11.8-15.2) gm/dl Hct (35.5-45.6) % MCV (84-94) fl MCH (28-32) pg MCHC (32-34) % RDW (13.2-15.2) % Plt Count (140-440) K/mm3 Lymph % (Auto) (13.4-35.0) % Porter % (Auto) (0.0-7.3) % Eos % (Auto) (0.0-4.3) % Baso % (Auto) (0.0-1.8) % Lymph # (Auto) (1.2-5.4) K/mm3 Porter # (Auto) (0.0-0.8) K/mm3 Eos # (Auto) (0.0-0.4) K/mm3 Baso # (Auto) (0.0-0.1) K/mm3 Seg Neutrophils % (40.0-70.0) % Seg Neutrophils # (1.8-7.7) K/mm3 Sodium (137-145) mmol/L Potassium (3.6-5.0) mmol/L Chloride (98-107) mmol/L Carbon Dioxide (22-30) mmol/L Anion Gap mmol/L BUN (9-20) mg/dL Creatinine (0.8-1.3) mg/dL Estimated GFR ml/min BUN/Creatinine Ratio % Glucose (75-100) mg/dL Calcium (8.4-10.2) mg/dL Urine Color Straw (Yellow) Urine Turbidity Clear (Clear) Urine pH 7.0 (5.0-7.0) Ur Specific [place] 1.006 (1.003-1.030) Urine Protein <15 mg/dl (Negative) mg/dL Urine Glucose (UA) Neg (Negative) mg/dL Urine Ketones Neg (Negative) mg/dL Urine Blood Neg (Negative) Urine Nitrite Neg (Negative) Urine Bilirubin Neg (Negative) Urine Urobilinogen < 2.0 (<2.0) mg/dL Ur Leukocyte Esterase Neg (Negative) Urine WBC (Auto) < 1.0 (0.0-6.0) /HPF Urine RBC (Auto) 1.0 (0.0-6.0) /HPF Urine Opiates Screen Presumptive negative Urine Methadone Screen Presumptive negative Ur Barbiturates Screen Presumptive negative Ur Phencyclidine Scrn Presumptive negative Ur Amphetamines Screen Presumptive negative U Benzodiazepines Scrn Presumptive negative Urine Cocaine Screen Presumptive negative U Marijuana (THC) Screen Presumptive negative Drugs of Abuse Note Disclamer Plasma/Serum Alcohol (0-0.07) % - Medical Decision Making This patient presents for a mental health evaluation. He complains of hallucinations that he describes as "nightmares." He denies any suicidal or homicidal ideations. The patient has been made an ED hold for an evaluation from the psychiatric team in the morning. However, he does not immediately fit criteria to be made a 1013 or require involuntary inpatient stabilization. Labs have been unremarkable including CBC, metabolic panel, blood alcohol level, urinalysis and UDS. Vital signs have been reassuring throughout his ED course thus far. We will continue to monitor this patient during his ED course. If the p sychiatric team decides that he does need inpatient stabilization, I would consider this patient medically cleared for psychiatric placement. Critical Care Time: No Critical care attestation.: If time is entered above; I have spent that time in minutes in the direct care of this critically ill patient, excluding procedure time. ED Disposition Clinical Impression: Schizophrenia, Encounter for medical screening examination Disposition: 30 STILL A PATIENT Is pt being admited?: No Condition: Stable Time of Disposition: 03:35
[2021-04-23 22:11] LABS: Basophils # (Auto) 0.2 K/mm3 (0.0-0.1); Basophils % (Auto) 1.4 % (0.0-1.8); Eosinophils # (Auto) 0.1 K/mm3 (0.0-0.4); Eosinophils % (Auto) 1.3 % (0.0-4.3); Hematocrit 43.1 % (35.5-45.6); Hemoglobin 14.8 gm/dl (11.8-15.2); Lymphocytes # (Auto) 2.6 K/mm3 (1.2-5.4); Lymphocytes % (Auto) 24.5 % (13.4-35.0); Mean Corpuscular HGB Conc 34 % (32-34); Mean Corpuscular Volume 90 fl (84-94); Monocytes # (Auto) 0.7 K/mm3 (0.0-0.8); Monocytes % (Auto) 6.6 % (0.0-7.3); Platelet Count 191 K/mm3 (140-440); Red Cell Distribution Width 15.7 % (13.2-15.2)
[2021-04-23 22:28] LABS: Blood Urea Nitrogen 7 mg/dL (9-20); Calcium 8.7 mg/dL (8.4-10.2); Hemolysis Index 8
[2021-04-23 22:29] LABS: BUN/Creatinine Ratio 10
[2021-04-23 23:30] LABS: Bilirubin,Urine NEG (Negative); Blood,Urine NEG (Negative); Color,Urine Straw (Yellow); Protein,Urine <15 mg/dL mg/dL (Negative); Urobilinogen,Urine < 2.0 mg/dL (<2.0)
[2021-04-23 23:36] LABS: WBC,Urine < 1.0 /HPF (0.0-6.0)
[2021-04-23 23:38] LABS: Amphetamine Screen,Urine PRESUMPTIVE NEGATIVE; Benzodiazepines Screen,Urine PRESUMPTIVE NEGATIVE; Cannabinoid Screen,Urine PRESUMPTIVE NEGATIVE; Cocaine Screen,Urine PRESUMPTIVE NEGATIVE; Methadone Screen,Urine PRESUMPTIVE NEGATIVE; Opiate Screen,Urine PRESUMPTIVE NEGATIVE
--- NOTE | 2021-04-24 10:24 | Event Note ---
Date: 04/24/21 The patient was evaluated in the emergency department for symptoms described in the history of present illness. He/she was evaluated in the context of the global COVID-19 pandemic, which necessitated consideration that the patient might be at risk for infection with the virus that causes COVID-19. Institutional protocols and algorithms that pertain to the evaluation of patients at risk for COVID-19 are in a state of rapid change based on information released by regulatory bodies including the CDC and federal and state organizations. These policies and algorithms were followed during the patient's care in the emergency department. Please note that these policies, procedures and recommendations changed on a rapid basis. Laboratory studies, vital signs, nursing documentation, ER documentation, and psychiatric documentation are reviewed and appreciated. Nursing team reports no acute events this morning or concerns. The patient is awake and ambulating and does not appear to be in any acute distress. The patient was deemed medically suitable for psychiatric disposition and placement during his initial ER evaluation. The patient continues to remain medically suitable for psychiatric placement and disposition. He is currently pending psychiatric placement. Of note, I am very familiar with this patient. This patient is a frequent utilizer and user of this emergency department. He is unfortunately homeless and undomiciled, and typically presents to this department to seek longterm, and/or food. Placing this patient on a 1013 hold or involuntary hold will reinforce maladaptive coping behavior, such as presenting to the emergency room for food, longterm, and also placing him on a 1013 hold will not resolved his homeless situation at this time. I recently discharge this patient from the emergency room, and he has also been discharged by many of my colleagues. I anticipate that the psychiatric team will recommend outpatient follow-up. This patient has chronic hallucinations, but he appears to be at his baseline at this time Vital Signs 04/23/21 04/23/21 21:18 21:55 Temperature 98.8 F Pulse Rate 80 Respiratory 18 Rate Blood Pressure 132/69 [Left] O2 Sat by Pulse 97 99 Oximetry Lab Results 04/23/21 04/23/21 04/23/21 Range/Units 22:00 22:00 22:00 WBC 10.6 (4.5-11.0) K/mm3 RBC 4.80 (3.65-5.03) M/mm3 Hgb 14.8 (11.8-15.2) gm/dl Hct 43.1 (35.5-45.6) % MCV 90 (84-94) fl MCH 31 (28-32) pg MCHC 34 (32-34) % RDW 15.7 H (13.2-15.2) % Plt Count 191 (140-440) K/mm3 Lymph % (Auto) 24.5 (13.4-35.0) % Rabun % (Auto) 6.6 (0.0-7.3) % Eos % (Auto) 1.3 (0.0-4.3) % Baso % (Auto) 1.4 (0.0-1.8) % Lymph # (Auto) 2.6 (1.2-5.4) K/mm3 Rabun # (Auto) 0.7 (0.0-0.8) K/mm3 Eos # (Auto) 0.1 (0.0-0.4) K/mm3 Baso # (Auto) 0.2 H (0.0-0.1) K/mm3 Seg Neutrophils % 66.2 (40.0-70.0) % Seg Neutrophils # 7.0 (1.8-7.7) K/mm3 Sodium 137 (137-145) mmol/L Potassium 4.0 (3.6-5.0) mmol/L Chloride 102.4 (98-107) mmol/L Carbon Dioxide 25 (22-30) mmol/L Anion Gap 14 mmol/L BUN 7 L (9-20) mg/dL Creatinine 0.7 L (0.8-1.3) mg/dL Estimated GFR > 60 ml/min BUN/Creatinine Ratio 10 % Glucose 96 (75-100) mg/dL Calcium 8.7 (8.4-10.2) mg/dL Urine Color (Yellow) Urine Turbidity (Clear) Urine pH (5.0-7.0) Ur Specific [place] (1.003-1.030) Urine Protein (Negative) mg/dL Urine Glucose (UA) (Negative) mg/dL Urine Ketones (Negative) mg/dL Urine Blood (Negative) Urine Nitrite (Negative) Urine Bilirubin (Negative) Urine Urobilinogen (<2.0) mg/dL Ur Leukocyte Esterase (Negative) Urine WBC (Auto) (0.0-6.0) /HPF Urine RBC (Auto) (0.0-6.0) /HPF Urine Opiates Screen Urine Methadone Screen Ur Barbiturates Screen Ur Phencyclidine Scrn Ur Amphetamines Screen U Benzodiazepines Scrn Urine Cocaine Screen U Marijuana (THC) Screen Drugs of Abuse Note Plasma/Serum Alcohol < 0.01 (0-0.07) % 04/23/21 04/23/21 Range/Units 22:44 22:44 WBC (4.5-11.0) K/mm3 RBC (3.65-5.03) M/mm3 Hgb (11.8-15.2) gm/dl Hct (35.5-45.6) % MCV (84-94) fl MCH (28-32) pg MCHC (32-34) % RDW (13.2-15.2) % Plt Count (140-440) K/mm3 Lymph % (Auto) (13.4-35.0) % Rabun % (Auto) (0.0-7.3) % Eos % (Auto) (0.0-4.3) % Baso % (Auto) (0.0-1.8) % Lymph # (Auto) (1.2-5.4) K/mm3 Rabun # (Auto) (0.0-0.8) K/mm3 Eos # (Auto) (0.0-0.4) K/mm3 Baso # (Auto) (0.0-0.1) K/mm3 Seg Neutrophils % (40.0-70.0) % Seg Neutrophils # (1.8-7.7) K/mm3 Sodium (137-145) mmol/L Potassium (3.6-5.0) mmol/L Chloride (98-107) mmol/L Carbon Dioxide (22-30) mmol/L Anion Gap mmol/L BUN (9-20) mg/dL Creatinine (0.8-1.3) mg/dL Estimated GFR ml/min BUN/Creatinine Ratio % Glucose (75-100) mg/dL Calcium (8.4-10.2) mg/dL Urine Color Straw (Yellow) Urine Turbidity Clear (Clear) Urine pH 7.0 (5.0-7.0) Ur Specific [place] 1.006 (1.003-1.030) Urine Protein <15 mg/dl (Negative) mg/dL Urine Glucose (UA) Neg (Negative) mg/dL Urine Ketones Neg (Negative) mg/dL Urine Blood Neg (Negative) Urine Nitrite Neg (Negative) Urine Bilirubin Neg (Negative) Urine Urobilinogen < 2.0 (<2.0) mg/dL Ur Leukocyte Esterase Neg (Negative) Urine WBC (Auto) < 1.0 (0.0-6.0) /HPF Urine RBC (Auto) 1.0 (0.0-6.0) /HPF Urine Opiates Screen Presumptive negative Urine Methadone Screen Presumptive negative Ur Barbiturates Screen Presumptive negative Ur Phencyclidine Scrn Presumptive negative Ur Amphetamines Screen Presumptive negative U Benzodiazepines Scrn Presumptive negative Urine Cocaine Screen Presumptive negative U Marijuana (THC) Screen Presumptive negative Drugs of Abuse Note Disclamer Plasma/Serum Alcohol (0-0.07) %
--- NOTE | 2021-04-24 10:48 | Consultation ---
History of Present Illness - Reason for Consult Consult date: 04/24/21 Reason for consult: anxiety - History of Present Psychiatric Illness The patient was seen today. He is known to me. The patient is lying down asleep. He doesn't open his eyes to speak with me. I ask him how was he feeling he says "pretty good." When asking the patient what brought him to the hospital, he replied "my nerves." I asked the patient what did he mean by his nerves he says "'my anxiety is bad. I need something for it." The patient has told me this on previous visits. The patient denies SI/HI or hallucinations of any kind. He says "no, I told you my nerves." He then rolls over and goes back to sleep. REVIEW OF SYSTEMS Constitutional: Negative for weight loss ENT: Negative for stridor Respiratory: Negative for cough or hemoptysis All other systems reviewed and are negative MENTAL STATUS EXAMINATION General Appearance and Behavior: Age appropriate, good hygiene, wearing appropriate clothes, uncooperative polite with questioning. Cooperation: cooperative Psychomotor Behavior: Psychomotor agitation Mood: good Affect and affective range: Congruent Thought Process: Self directed Thought Content:No suicidal ideation Speech: Normal Intellectual Functioning: Average Suicidal Ideation: Denied Homicidal Ideation: Denied hallucination: Denies Impulse Control: intact Insight and Judgment: limited Memory: Normal Attention:Normal Orientation: Alert and oriented Generalized Anxiety Disorder Current Visit: Yes Status: Acute RECOMMENDATIONS DC 1013 Continue home medications from previous visits. Risks, benefits and alternatives of medications discussed with the patient, questions answered and consent obtained from patient. PSYCHOTHERAPY: Supportive psychotherapy provided MEDICAL: Per primary team DELIRIUM PRECAUTIONS: Please re-orient patient frequently, keep lights on during the day, and minimize benzodiazepines and opiates as these medications could worsen patient's confusion. 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 The patient understands that if SI/HI or any fear of endangerment arise he is to seek immediate assistance. FOLLOW-UP: Will sign off Follow up with out patient within 7 days or sooner. Case staffed with Dr. Lizarraga Medications and Allergies Allergies Allergy/AdvReac Type Severity Reaction Status Date / Time divalproex sodium Allergy Unknown Verified 04/23/21 21:18 [From Depakote] quetiapine [From Seroquel] Allergy Unknown Verified 04/23/21 21:18 risperidone [From Risperdal] Allergy Unknown Verified 04/23/21 21:18 Home Medications Medication Instructions Recorded Confirmed Last Taken Type FLUoxetine HCL [FLUoxetine] 20 mg PO DAILY #7 tablet 10/04/19 Unknown Rx OLANzapine [Zyprexa] 10 mg PO BID #14 tablet 10/04/19 Unknown Rx hydrOXYzine PAMOATE [Vistaril] 50 mg PO Q12H #14 capsule 10/04/19 Unknown Rx traZODone [Desyrel] 100 mg PO QHS #7 tablet 10/04/19 Unknown Rx Ondansetron [Zofran Odt] 4 mg PO Q8HR PRN #10 tab.rapdis 12/05/19 Unknown Rx Ondansetron [Zofran Odt] 4 mg PO Q6H #20 tab.rapdis 10/30/20 Unknown Rx cephALEXin [Keflex] 500 mg PO TID #28 cap 12/17/20 Unknown Rx FLUoxetine HCL [Prozac] 20 mg PO DAILY 30 Days #30 capsule 12/18/20 Unknown Rx traZODone [Desyrel] 50 mg PO QHS 30 Days #30 tab 12/18/20 Unknown Rx OLANZapine [Olanzapine] 5 mg PO DAILY #30 tablet 04/16/21 Unknown Rx Mental Status Exam - Vital signs Last Vital Signs Temp 98.8 F 04/23/21 21:18 Pulse 80 04/23/21 21:18 Resp 18 04/23/21 21:18 BP 132/69 04/23/21 21:18 Pulse Ox 99 04/23/21 21:55 Results Result Diagrams: 04/23/21 22:00 04/23/21 22:00 Abnormal lab results 04/23/21 04/23/21 Range/Units 22:00 22:00 RDW 15.7 H (13.2-15.2) % Baso # (Auto) 0.2 H (0.0-0.1) K/mm3 BUN 7 L (9-20) mg/dL Creatinine 0.7 L (0.8-1.3) mg/dL All other labs normal.
[2021-04-24 12:58] VITALS: BP 100/63
== END 2021-04-24 14:43 | disposition home or self-care (01) ==
LOC: ED 21:03
DX: F20.9 Schizophrenia, unspecified (principal); E11.22 Type 2 diabetes mellitus with diabetic chronic kidney disease; I12.0 Hypertensive chronic kidney disease with stage 5 chronic kidney disease or end stage renal disease; N18.6 End stage renal disease; G20 Parkinson's disease
CPT/HCPCS: 36415; 80048; 80307; 80320; 81001; 85025; 99284; G0480

== ENCOUNTER 2021-04-26 02:34 | Emergency (ER) | payer MEDICARE ==
[2021-04-26] MEDS ORDERED: ACETAMINOPHEN 500 MG TAB PO ONE (02:57)
--- NOTE | 2021-04-26 03:22 | Emergency Department Report ---
ED General Adult HPI - General Stated complaint: BILATERAL LEG PAIN Time Seen by Provider: 04/26/21 02:53 - History of Present Illness Initial comments: Patient presents with bilateral leg swelling. He states both her legs hurting. This started 1 hour prior to arrival. He was doing nothing specific when this occurred. There is no trauma. He has no fevers or chills per there is no cough or congestion. He states this is happened before and he was told that he has arthritis. He did not take anything for pain. He also states that his blood sugar has been elevated. He admits that he has not necessarily been compliant with medication. There is no fevers or chills. Has no cough or congestion. He has no shortness of breath. The pain is an aching pain in the legs. It is constant. It does not radiate or migrate. It is worse with ambulation. - Related Data Previous Rx's Medication Instructions Recorded Last Taken Type FLUoxetine HCL [FLUoxetine] 20 mg PO DAILY #7 tablet 10/04/19 Unknown Rx OLANzapine [Zyprexa] 10 mg PO BID #14 tablet 10/04/19 Unknown Rx hydrOXYzine PAMOATE [Vistaril] 50 mg PO Q12H #14 capsule 10/04/19 Unknown Rx traZODone [Desyrel] 100 mg PO QHS #7 tablet 10/04/19 Unknown Rx Ondansetron [Zofran Odt] 4 mg PO Q8HR PRN #10 tab.rapdis 12/05/19 Unknown Rx Ondansetron [Zofran Odt] 4 mg PO Q6H #20 tab.rapdis 10/30/20 Unknown Rx cephALEXin [Keflex] 500 mg PO TID #28 cap 12/17/20 Unknown Rx FLUoxetine HCL [Prozac] 20 mg PO DAILY 30 Days #30 capsule 12/18/20 Unknown Rx traZODone [Desyrel] 50 mg PO QHS 30 Days #30 tab 12/18/20 Unknown Rx OLANZapine [Olanzapine] 5 mg PO DAILY #30 tablet 04/16/21 Unknown Rx Allergies Allergy/AdvReac Type Severity Reaction Status Date / Time divalproex sodium Allergy Unknown Verified 04/23/21 21:18 [From Depakote] quetiapine [From Seroquel] Allergy Unknown Verified 04/23/21 21:18 risperidone [From Risperdal] Allergy Unknown Verified 04/23/21 21:18 ED Review of Systems ROS: Stated complaint: BILATERAL LEG PAIN Other details as noted in HPI Comment: All other systems reviewed and negative Constitutional: denies: fever Eyes: denies: vision change ENT: denies: throat pain Respiratory: denies: cough Cardiovascular: denies: chest pain Endocrine: denies: unexplained weight loss Gastrointestinal: denies: abdominal pain Genitourinary: denies: dysuria Musculoskeletal: denies: back pain Skin: denies: rash Neurological: denies: headache Hematological/Lymphatic: denies: easy bruising ED Past Medical Hx - Past Medical History Hx Hypertension: Yes Hx Diabetes: Yes Hx Renal Disease: Yes (esrd) Hx Psychiatric Treatment: Yes (bipolar, schizophrenia) Additional medical history: Parkinsons disease - Family History Family history: diabetes, hypertension - Social History Smoking Status: Never Smoker Substance Use Type: None - Medications Home Medications: Home Medications Medication Instructions Recorded Confirmed Last Taken Type FLUoxetine HCL [FLUoxetine] 20 mg PO DAILY #7 tablet 10/04/19 Unknown Rx OLANzapine [Zyprexa] 10 mg PO BID #14 tablet 10/04/19 Unknown Rx hydrOXYzine PAMOATE [Vistaril] 50 mg PO Q12H #14 capsule 10/04/19 Unknown Rx traZODone [Desyrel] 100 mg PO QHS #7 tablet 10/04/19 Unknown Rx Ondansetron [Zofran Odt] 4 mg PO Q8HR PRN #10 tab.rapdis 12/05/19 Unknown Rx Ondansetron [Zofran Odt] 4 mg PO Q6H #20 tab.rapdis 10/30/20 Unknown Rx cephALEXin [Keflex] 500 mg PO TID #28 cap 12/17/20 Unknown Rx FLUoxetine HCL [Prozac] 20 mg PO DAILY 30 Days #30 capsule 12/18/20 Unknown Rx traZODone [Desyrel] 50 mg PO QHS 30 Days #30 tab 12/18/20 Unknown Rx OLANZapine [Olanzapine] 5 mg PO DAILY #30 tablet 04/16/21 Unknown Rx ED Physical Exam - General Limitations: No Limitations, Other (Pulse ox noted and normal) General appearance: alert, in no apparent distress, other (Disheveled and unkempt) - Head Head exam: Present: atraumatic, normocephalic - Eye Eye exam: Present: normal appearance, EOMI. Absent: scleral icterus - ENT ENT exam: Present: normal exam, normal external ear exam - Neck Neck exam: Present: normal inspection. Absent: meningismus - Respiratory Respiratory exam: Present: normal lung sounds bilaterally. Absent: respiratory distress - Cardiovascular Cardiovascular Exam: Present: regular rate, normal rhythm - GI/Abdominal GI/Abdominal exam: Present: soft. Absent: tenderness - Extremities Exam Extremities exam: Present: normal inspection, normal capillary refill. Absent: pedal edema, calf tenderness - Back Exam Back exam: Absent: CVA tenderness (R), CVA tenderness (L) - Neurological Exam Neurological exam: Present: alert, oriented X3, CN II-XII intact, normal gait. Absent: motor sensory deficit - Psychiatric Psychiatric exam: Present: normal affect, normal mood - Skin Skin exam: Present: warm, dry ED Course - Reevaluation(s) Reevaluation #1: 04/26/21 03:18 Accu-Chek and Tylenol were ordered. Old records reviewed. ED Medical Decision Making - Medical Decision Making Patient presents with bilateral leg pain. He states that they are swollen. I do not appreciate any edema. There is no warmth or erythema. There is certainly no evidence of cellulitis or infection. He does not have unilateral leg edema that would suggest DVT. There is no trauma that would suggest injury or fracture. Patient's glucose has been noted. This can be managed as an outpatient. He certainly does not require emergent intervention. He does not have any evidence of necrotizing fasciitis given the fact that he has bilateral leg pain. It is unlikely this represents any type of compartment syndrome given the fact that there is no injury. He does not have a petechial or purpuric rash. Patient was treated symptomatically. He states that this is related to arthritis. He can use Tylenol [id number]. He was subsequently discharged. Critical Care Time: No Critical care attestation.: If time is entered above; I have spent that time in minutes in the direct care of this critically ill patient, excluding procedure time. ED Disposition Clinical Impression: Bilateral leg pain Disposition: HOME / SELF CARE / HOMELESS Is pt being admited?: No Condition: Stable Instructions: How to Use Cold Therapy, [id number], Pain Without a Known Cause Additional Instructions: Ice and elevate. Return for problems. Follow-up with a regular doctor. If you do not have a regular doctor, follow-up with the referral physician. Use Tylenol and ibuprofen [id number] for your pain. Referrals: PRIMARY CAREMD [Referring] - 3-5 Days VICKY MICHAEL MD [Staff Physician] - 3-5 Days
[2021-04-26 04:58] VITALS: BP 130/74
== END 2021-04-26 04:00 | disposition home or self-care (01) ==
LOC: ED 02:34
DX: M79.605 Pain in left leg (principal); M79.604 Pain in right leg; E11.22 Type 2 diabetes mellitus with diabetic chronic kidney disease; I12.0 Hypertensive chronic kidney disease with stage 5 chronic kidney disease or end stage renal disease; N18.6 End stage renal disease
CPT/HCPCS: 82962; 99282

== ENCOUNTER 2021-04-26 23:34 | Emergency (ER) | payer MEDICARE ==
[2021-04-26 23:48] VITALS: BP 116/78
[2021-04-27] MEDS ORDERED: OLANzapine ZYDIS 5 MG TAB PO ONE (00:25)
--- NOTE | 2021-04-27 00:25 | Emergency Department Report ---
ED Psych HPI - General Chief Complaint: Psych Stated Complaint: SI/MH Time Seen by Provider: 04/26/21 23:50 Source: patient Mode of arrival: Ambulatory - History of Present Illness Initial Comments: Patient presents because he is hearing voices. He states that he is seeing things as well. Since 1999, he has been seeing things and hearing voices. The things that he sees are people. He hears voices and including voices that are belligerent and combative. These are not command hallucinations. He has not been told to harm himself or anyone else. He is not suicidal or homicidal. I have asked him this repeatedly because he initially reported that he was suicidal. He tells me that he is not suicidal. Patient states that normally he gets some medication to help him sleep and the symptoms go away. He tells me that he normally takes Seroquel despite the fact that he had listed that as an allergy previously. Patient did not report any of this last night when I saw him. He states that all of the symptoms started tonight. - Related Data Previous Rx's Medication Instructions Recorded Last Taken Type FLUoxetine HCL [FLUoxetine] 20 mg PO DAILY #7 tablet 10/04/19 Unknown Rx OLANzapine [Zyprexa] 10 mg PO BID #14 tablet 10/04/19 Unknown Rx hydrOXYzine PAMOATE [Vistaril] 50 mg PO Q12H #14 capsule 10/04/19 Unknown Rx traZODone [Desyrel] 100 mg PO QHS #7 tablet 10/04/19 Unknown Rx Ondansetron [Zofran Odt] 4 mg PO Q8HR PRN #10 tab.rapdis 12/05/19 Unknown Rx Ondansetron [Zofran Odt] 4 mg PO Q6H #20 tab.rapdis 10/30/20 Unknown Rx cephALEXin [Keflex] 500 mg PO TID #28 cap 12/17/20 Unknown Rx FLUoxetine HCL [Prozac] 20 mg PO DAILY 30 Days #30 capsule 12/18/20 Unknown Rx traZODone [Desyrel] 50 mg PO QHS 30 Days #30 tab 12/18/20 Unknown Rx OLANZapine [Olanzapine] 5 mg PO DAILY #30 tablet 04/16/21 Unknown Rx Allergies Allergy/AdvReac Type Severity Reaction Status Date / Time divalproex sodium Allergy Unknown Verified 04/26/21 23:46 [From Depakote] quetiapine [From Seroquel] Allergy Unknown Verified 04/26/21 23:46 risperidone [From Risperdal] Allergy Unknown Verified 04/26/21 23:46 ED Review of Systems ROS: Stated complaint: SI/MH Other details as noted in HPI Comment: All other systems reviewed and negative Constitutional: denies: fever Eyes: denies: vision change ENT: denies: throat pain Respiratory: denies: cough Cardiovascular: denies: chest pain Endocrine: denies: unexplained weight loss Gastrointestinal: denies: abdominal pain Genitourinary: denies: dysuria Musculoskeletal: denies: back pain Skin: denies: rash Neurological: denies: headache Psychiatric: as per HPI. denies: homicidal thoughts, suicidal thoughts Hematological/Lymphatic: denies: easy bruising ED Past Medical Hx - Past Medical History Hx Hypertension: Yes Hx Diabetes: Yes Hx Renal Disease: Yes (esrd) Hx Psychiatric Treatment: Yes (bipolar, schizophrenia) Additional medical history: Parkinsons disease - Family History Family history: other (Psychiatric disease) - Social History Smoking Status: Never Smoker Substance Use Type: None - Medications Home Medications: Home Medications Medication Instructions Recorded Confirmed Last Taken Type FLUoxetine HCL [FLUoxetine] 20 mg PO DAILY #7 tablet 10/04/19 Unknown Rx OLANzapine [Zyprexa] 10 mg PO BID #14 tablet 10/04/19 Unknown Rx hydrOXYzine PAMOATE [Vistaril] 50 mg PO Q12H #14 capsule 10/04/19 Unknown Rx traZODone [Desyrel] 100 mg PO QHS #7 tablet 10/04/19 Unknown Rx Ondansetron [Zofran Odt] 4 mg PO Q8HR PRN #10 tab.rapdis 12/05/19 Unknown Rx Ondansetron [Zofran Odt] 4 mg PO Q6H #20 tab.rapdis 10/30/20 Unknown Rx cephALEXin [Keflex] 500 mg PO TID #28 cap 12/17/20 Unknown Rx FLUoxetine HCL [Prozac] 20 mg PO DAILY 30 Days #30 capsule 12/18/20 Unknown Rx traZODone [Desyrel] 50 mg PO QHS 30 Days #30 tab 12/18/20 Unknown Rx OLANZapine [Olanzapine] 5 mg PO DAILY #30 tablet 04/16/21 Unknown Rx ED Physical Exam - General Limitations: No Limitations, Other (Pulse ox noted and normal) General appearance: alert, in no apparent distress, other (Disheveled and unkempt) - Head Head exam: Present: atraumatic, normocephalic, normal inspection - Eye Eye exam: Present: normal appearance, EOMI - ENT ENT exam: Present: normal exam, mucous membranes moist - Neck Neck exam: Present: normal inspection. Absent: meningismus - Respiratory Respiratory exam: Present: normal lung sounds bilaterally. Absent: respiratory distress - Cardiovascular Cardiovascular Exam: Present: regular rate, normal rhythm - GI/Abdominal GI/Abdominal exam: Present: soft. Absent: tenderness - Extremities Exam Extremities exam: Present: normal capillary refill - Back Exam Back exam: Present: full ROM - Neurological Exam Neurological exam: Present: alert, oriented X3, normal gait. Absent: motor sensory deficit - Psychiatric Psychiatric exam: Present: normal affect, normal mood - Skin Skin exam: Present: warm, dry ED Course Vital Signs 04/26/21 23:47 Temperature 98.4 F Pulse Rate 82 Respiratory 18 Rate Blood Pressure 116/78 [Left] O2 Sat by Pulse 98 Oximetry - Reevaluation(s) Reevaluation #1: 04/27/21 00:23 Patient was seen as above. I have given him a dose of Zyprexa. He was subsequently discharged. Again, he is not suicidal or homicidal. ED Medical Decision Making - Medical Decision Making Patient presents with reports of hearing voices. He also reports seeing things. He has a history of hallucinations. He is not suicidal homicidal. Is not responding to extraneous stimuli. He does not appear to be acutely psychotic. He is not agitated or belligerent. Patient states that he normally is able to sleep and this goes away. He will be treated symptomatically and discharged. He has been given outpatient follow-up. I did review old records and he does have a history of this. It should be noted that he is here frequently for various different complaints and I have reviewed these as well. Again, he is stated that he is not actively suicidal or homicidal. Critical Care Time: No Critical care attestation.: If time is entered above; I have spent that time in minutes in the direct care of this critically ill patient, excluding procedure time. ED Disposition Clinical Impression: Hallucinations Disposition: HOME / SELF CARE / HOMELESS Is pt being admited?: No Condition: Stable Additional Instructions: Take your medications. See a regular doctor. Follow-up with a regular doctor. Return for any new problems or concerns. Referrals: PRIMARY CAREMD [Referring] - 3-5 Days ARISTEO YUEN MD [Staff Physician] - 3-5 Days
== END 2021-04-27 01:26 | disposition home or self-care (01) ==
LOC: ED 23:34
DX: R44.0 Auditory hallucinations (principal); E11.22 Type 2 diabetes mellitus with diabetic chronic kidney disease; I12.0 Hypertensive chronic kidney disease with stage 5 chronic kidney disease or end stage renal disease; N18.6 End stage renal disease; G20 Parkinson's disease; F31.9 Bipolar disorder, unspecified; Z88.8 Allergy status to other drugs, medicaments and biological substances
CPT/HCPCS: 99283

== ENCOUNTER 2021-04-28 23:32 | Emergency (ER) | payer MEDICARE ==
[2021-04-28 23:41] VITALS: BP 141/54
[2021-04-29] MEDS ORDERED: IBUPROFEN 800 MG TAB PO ONE (05:20)
--- NOTE | 2021-04-29 05:25 | Emergency Department Report ---
ED General Adult HPI - General Chief complaint: Pain General Stated complaint: PAIN ALL OVER Time Seen by Provider: 04/29/21 05:08 Source: EMS Mode of arrival: Ambulatory Limitations: No Limitations - History of Present Illness Initial comments: Patient 41-year-old white male with history of depression and schizophrenia patient is homeless. Patient presents tonight for generalized pain all over. States is cold cold out and he is achy all over. Patient denies fevers or chills he denies falls injury or trauma. Patient alert oriented x3 and amatory with steady gait there are no obvious wounds or bruises or lacerations. Patient now endorses this is chronic pain. Pain is exacerbated by activity and moving. Pain is relieved by nothing tried.. - Related Data Previous Rx's Medication Instructions Recorded Last Taken Type FLUoxetine HCL [FLUoxetine] 20 mg PO DAILY #7 tablet 10/04/19 Unknown Rx OLANzapine [Zyprexa] 10 mg PO BID #14 tablet 10/04/19 Unknown Rx hydrOXYzine PAMOATE [Vistaril] 50 mg PO Q12H #14 capsule 10/04/19 Unknown Rx traZODone [Desyrel] 100 mg PO QHS #7 tablet 10/04/19 Unknown Rx Ondansetron [Zofran Odt] 4 mg PO Q8HR PRN #10 tab.rapdis 12/05/19 Unknown Rx Ondansetron [Zofran Odt] 4 mg PO Q6H #20 tab.rapdis 10/30/20 Unknown Rx cephALEXin [Keflex] 500 mg PO TID #28 cap 12/17/20 Unknown Rx FLUoxetine HCL [Prozac] 20 mg PO DAILY 30 Days #30 capsule 12/18/20 Unknown Rx traZODone [Desyrel] 50 mg PO QHS 30 Days #30 tab 12/18/20 Unknown Rx OLANZapine [Olanzapine] 5 mg PO DAILY #30 tablet 04/16/21 Unknown Rx Acetaminophen [Acetaminophen 8 650 mg PO QID PRN #30 tablet.er 04/29/21 Unknown Rx Hour] Allergies Allergy/AdvReac Type Severity Reaction Status Date / Time divalproex sodium Allergy Unknown Verified 04/28/21 23:40 [From Depakote] quetiapine [From Seroquel] Allergy Unknown Verified 04/28/21 23:40 risperidone [From Risperdal] Allergy Unknown Verified 04/28/21 23:40 ED Review of Systems ROS: Stated complaint: PAIN ALL OVER Other details as noted in HPI Constitutional: denies: chills, fever Eyes: denies: eye pain, eye discharge, vision change ENT: denies: ear pain, throat pain Respiratory: no symptoms reported Cardiovascular: denies: chest pain, palpitations Endocrine: no symptoms reported Gastrointestinal: denies: abdominal pain, nausea, diarrhea Genitourinary: denies: urgency, dysuria Musculoskeletal: arthralgia, myalgia. denies: back pain, joint swelling Skin: denies: rash, lesions Neurological: denies: headache, weakness, paresthesias Psychiatric: denies: anxiety, depression Hematological/Lymphatic: denies: easy bleeding, easy bruising ED Past Medical Hx - Past Medical History Hx Hypertension: Yes Hx Diabetes: Yes Hx Renal Disease: Yes (esrd) Hx Psychiatric Treatment: Yes (bipolar, schizophrenia) Additional medical history: Parkinsons disease - Social History Smoking Status: Never Smoker Substance Use Type: None - Medications Home Medications: Home Medications Medication Instructions Recorded Confirmed Last Taken Type FLUoxetine HCL [FLUoxetine] 20 mg PO DAILY #7 tablet 10/04/19 Unknown Rx OLANzapine [Zyprexa] 10 mg PO BID #14 tablet 10/04/19 Unknown Rx hydrOXYzine PAMOATE [Vistaril] 50 mg PO Q12H #14 capsule 10/04/19 Unknown Rx traZODone [Desyrel] 100 mg PO QHS #7 tablet 10/04/19 Unknown Rx Ondansetron [Zofran Odt] 4 mg PO Q8HR PRN #10 tab.rapdis 12/05/19 Unknown Rx Ondansetron [Zofran Odt] 4 mg PO Q6H #20 tab.rapdis 10/30/20 Unknown Rx cephALEXin [Keflex] 500 mg PO TID #28 cap 12/17/20 Unknown Rx FLUoxetine HCL [Prozac] 20 mg PO DAILY 30 Days #30 capsule 12/18/20 Unknown Rx traZODone [Desyrel] 50 mg PO QHS 30 Days #30 tab 12/18/20 Unknown Rx OLANZapine [Olanzapine] 5 mg PO DAILY #30 tablet 04/16/21 Unknown Rx Acetaminophen [Acetaminophen 8 650 mg PO QID PRN #30 tablet.er 04/29/21 Unknown Rx Hour] ED Physical Exam - General Limitations: No Limitations General appearance: alert, in no apparent distress - Head Head exam: Present: normocephalic, normal inspection - Eye Eye exam: Present: normal appearance, PERRL, EOMI Pupils: Present: normal accommodation - ENT ENT exam: Present: mucous membranes moist - Neck Neck exam: Present: normal inspection, full ROM. Absent: tenderness - Respiratory Respiratory exam: Present: normal lung sounds bilaterally. Absent: respiratory distress, wheezes, chest wall tenderness - Cardiovascular Cardiovascular Exam: Present: regular rate, normal rhythm, normal heart sounds. Absent: systolic murmur, diastolic murmur, rubs, gallop - GI/Abdominal GI/Abdominal exam: Present: soft, normal bowel sounds. Absent: distended, tenderness - Rectal Rectal exam: Present: deferred - Extremities Exam Extremities exam: Present: normal inspection, full ROM, normal capillary refill. Absent: tenderness, joint swelling - Back Exam Back exam: Present: normal inspection, full ROM. Absent: CVA tenderness (R), CVA tenderness (L) - Neurological Exam Neurological exam: Present: alert, oriented X3, CN II-XII intact, normal gait. Absent: motor sensory deficit - Expanded Neurological Exam Expanded Patient oriented to: Present: person, place Speech: Present: fluid speech Motor strength exam: RUE: 5, LUE: 5, RLE: 5, LLE: 5 Best Eye Response ([place]): (4) open spontaneously Best Motor Response ([place]): (6) obeys commands Best Verbal Response ([place]): (5) oriented [place] Total: 15 - Psychiatric Psychiatric exam: Present: normal affect, normal mood - Skin Skin exam: Present: warm, dry, intact, normal color. Absent: rash ED Course Vital Signs 04/28/21 23:40 Temperature 97.8 F Pulse Rate 82 Respiratory 16 Rate Blood Pressure 141/54 [Left] O2 Sat by Pulse 99 Oximetry ED Medical Decision Making - Medical Decision Making This is generalized body aches. Plan NSAIDs as needed pain. Follow-up with your doctor in 2 to 3 days. Return to the emergency department if symptoms worsen. Patient verbalized agreement and understanding with discharge plan. Patient will be DC'd home in stable condition at this time. Critical care attestation.: If time is entered above; I have spent that time in minutes in the direct care of this critically ill patient, excluding procedure time. ED Disposition Clinical Impression: Musculoskeletal pain Disposition: HOME / SELF CARE / HOMELESS Is pt being admited?: No Does the pt Need Aspirin: No Condition: Stable Instructions: Musculoskeletal Pain Additional Instructions: Take all medications as prescribed, use moist heat therapy, follow-up with your primary care doctor in 2 to 3 days. Prescriptions: Acetaminophen [Acetaminophen 8 Hour] 650 mg PO QID PRN #30 tablet.er PRN Reason: pain Referrals: [facility] [Provider Group] - 3-5 Days Time of Disposition: 05:27
== END 2021-04-29 07:01 | disposition home or self-care (01) ==
LOC: ED 23:32
DX: M79.18 Myalgia, other site (principal); I12.0 Hypertensive chronic kidney disease with stage 5 chronic kidney disease or end stage renal disease; N18.6 End stage renal disease; E11.22 Type 2 diabetes mellitus with diabetic chronic kidney disease; F20.9 Schizophrenia, unspecified; F32.9 Major depressive disorder, single episode, unspecified
CPT/HCPCS: 99283

== ENCOUNTER 2021-04-30 00:28 | Emergency (ER) | payer MEDICARE ==
[2021-04-30 00:38] VITALS: BP 126/72
== END 2021-04-30 03:30 | disposition left against medical advice (07) ==
LOC: ED 00:28
DX: R45.0 Nervousness (principal); Z53.21 Procedure and treatment not carried out due to patient leaving prior to being seen by health care provider

== ENCOUNTER 2021-05-01 01:39 | Emergency (ER) | payer MEDICARE ==
[2021-05-01 02:28] VITALS: BP 138/84
== END 2021-05-01 03:00 | disposition left against medical advice (07) ==
LOC: ED 01:39
DX: M79.604 Pain in right leg (principal); M79.605 Pain in left leg; W18.39XA Other fall on same level, initial encounter; Y93.89 Activity, other specified; Y92.89 Other specified places as the place of occurrence of the external cause; Y99.8 Other external cause status

== ENCOUNTER 2021-05-20 02:27 | Emergency (ER) | payer MEDICARE ==
[2021-05-20 02:30] VITALS: BP 147/70
--- NOTE | 2021-05-20 05:27 | Emergency Department Report ---
ED General Adult HPI - General Chief complaint: Chest Pain Stated complaint: CHEST PAIN Time Seen by Provider: 05/20/21 03:05 Source: patient Mode of arrival: Ambulatory Limitations: No Limitations - History of Present Illness Initial comments: Patient 41-year-old white male with history of homelessness. He presents tonight for vague chest pain. Patient denies shortness of breath there is no dizziness there is no headache there is no numbness or tingling there is no nausea no vomiting. Patient states symptoms onset with cough movement tonight. Patient states symptoms are exacerbated by nothing. Symptoms are relieved by nothing tried. Patient rates symptoms at 2/10 at this time. Patient arrived to the ED via self from self. Scented to ED patient is ambulatory with no acute distress, - Related Data Previous Rx's Medication Instructions Recorded Last Taken Type FLUoxetine HCL [FLUoxetine] 20 mg PO DAILY #7 tablet 10/04/19 Unknown Rx OLANzapine [Zyprexa] 10 mg PO BID #14 tablet 10/04/19 Unknown Rx hydrOXYzine PAMOATE [Vistaril] 50 mg PO Q12H #14 capsule 10/04/19 Unknown Rx traZODone [Desyrel] 100 mg PO QHS #7 tablet 10/04/19 Unknown Rx Ondansetron [Zofran Odt] 4 mg PO Q8HR PRN #10 tab.rapdis 12/05/19 Unknown Rx Ondansetron [Zofran Odt] 4 mg PO Q6H #20 tab.rapdis 10/30/20 Unknown Rx cephALEXin [Keflex] 500 mg PO TID #28 cap 12/17/20 Unknown Rx FLUoxetine HCL [Prozac] 20 mg PO DAILY 30 Days #30 capsule 12/18/20 Unknown Rx traZODone [Desyrel] 50 mg PO QHS 30 Days #30 tab 12/18/20 Unknown Rx OLANZapine [Olanzapine] 5 mg PO DAILY #30 tablet 04/16/21 Unknown Rx Acetaminophen [Acetaminophen 8 650 mg PO QID PRN #30 tablet.er 04/29/21 Unknown Rx Hour] Ibuprofen [Motrin 800 MG tab] 800 mg PO Q8HR PRN #30 tablet 05/20/21 Unknown Rx Allergies Allergy/AdvReac Type Severity Reaction Status Date / Time divalproex sodium Allergy Unknown Verified 05/20/21 02:29 [From Depakote] quetiapine [From Seroquel] Allergy Unknown Verified 05/20/21 02:29 risperidone [From Risperdal] Allergy Unknown Verified 05/20/21 02:29 ED Review of Systems ROS: Stated complaint: CHEST PAIN Other details as noted in HPI Constitutional: denies: chills, fever Eyes: denies: eye pain, eye discharge, vision change ENT: denies: ear pain, throat pain Respiratory: denies: cough, shortness of breath, wheezing Cardiovascular: denies: chest pain, palpitations Endocrine: no symptoms reported Gastrointestinal: denies: abdominal pain, nausea, diarrhea Genitourinary: denies: urgency, dysuria Musculoskeletal: denies: back pain, joint swelling, arthralgia Skin: denies: rash, lesions Neurological: denies: headache, weakness, paresthesias Psychiatric: denies: anxiety, depression Hematological/Lymphatic: denies: easy bleeding, easy bruising ED Past Medical Hx - Past Medical History Hx Hypertension: Yes Hx Diabetes: Yes Hx Renal Disease: Yes (esrd) Hx Psychiatric Treatment: Yes (bipolar, schizophrenia) Additional medical history: Parkinsons disease - Social History Smoking Status: Never Smoker Substance Use Type: None - Medications Home Medications: Home Medications Medication Instructions Recorded Confirmed Last Taken Type FLUoxetine HCL [FLUoxetine] 20 mg PO DAILY #7 tablet 10/04/19 Unknown Rx OLANzapine [Zyprexa] 10 mg PO BID #14 tablet 10/04/19 Unknown Rx hydrOXYzine PAMOATE [Vistaril] 50 mg PO Q12H #14 capsule 10/04/19 Unknown Rx traZODone [Desyrel] 100 mg PO QHS #7 tablet 10/04/19 Unknown Rx Ondansetron [Zofran Odt] 4 mg PO Q8HR PRN #10 tab.rapdis 12/05/19 Unknown Rx Ondansetron [Zofran Odt] 4 mg PO Q6H #20 tab.rapdis 10/30/20 Unknown Rx cephALEXin [Keflex] 500 mg PO TID #28 cap 12/17/20 Unknown Rx FLUoxetine HCL [Prozac] 20 mg PO DAILY 30 Days #30 capsule 12/18/20 Unknown Rx traZODone [Desyrel] 50 mg PO QHS 30 Days #30 tab 12/18/20 Unknown Rx OLANZapine [Olanzapine] 5 mg PO DAILY #30 tablet 04/16/21 Unknown Rx Acetaminophen [Acetaminophen 8 650 mg PO QID PRN #30 tablet.er 04/29/21 Unknown Rx Hour] Ibuprofen [Motrin 800 MG tab] 800 mg PO Q8HR PRN #30 tablet 05/20/21 Unknown Rx ED Physical Exam - General Limitations: No Limitations General appearance: alert, in no apparent distress - Head Head exam: Present: normocephalic, normal inspection - Eye Eye exam: Present: normal appearance, PERRL, EOMI Pupils: Present: normal accommodation - ENT ENT exam: Present: mucous membranes moist - Neck Neck exam: Present: normal inspection. Absent: tenderness - Respiratory Respiratory exam: Present: normal lung sounds bilaterally. Absent: respiratory distress, wheezes, stridor, chest wall tenderness - Cardiovascular Cardiovascular Exam: Present: regular rate, normal rhythm, normal heart sounds. Absent: systolic murmur, diastolic murmur, rubs, gallop - GI/Abdominal GI/Abdominal exam: Present: soft, normal bowel sounds. Absent: distended, tenderness - Rectal Rectal exam: Present: deferred - Extremities Exam Extremities exam: Present: normal inspection, full ROM, normal capillary refill - Back Exam Back exam: Present: normal inspection - Neurological Exam Neurological exam: Present: alert, oriented X3, CN II-XII intact, normal gait - Psychiatric Psychiatric exam: Present: normal affect, normal mood - Skin Skin exam: Present: warm, dry, intact, normal color. Absent: rash ED Course Vital Signs 05/20/21 02:29 Temperature 98.7 F Pulse Rate 78 Respiratory 18 Rate Blood Pressure 147/70 [Left] O2 Sat by Pulse 98 Oximetry ED Medical Decision Making - Medical Decision Making Patient declines labs refuses x-ray refuses EKG. States he just wants to rest and sleep. This is likely secondary gain. Patient was signed out AMA at this time patient is alert oriented x3 patient demonstrates safe decision-making capacity. There is no acute distress shortness of breath or nausea or vomiting Critical care attestation.: If time is entered above; I have spent that time in minutes in the direct care of this critically ill patient, excluding procedure time. ED Disposition Clinical Impression: Musculoskeletal pain Disposition: HOME / SELF CARE / HOMELESS Is pt being admited?: No Does the pt Need Aspirin: No Condition: Stable Instructions: Musculoskeletal Pain Additional Instructions: Take all medications as prescribed, follow-up with your doctor in 2 to 3 days. Return to emergency department should symptoms worsen. Prescriptions: Ibuprofen [Motrin 800 MG tab] 800 mg PO Q8HR PRN #30 tablet PRN Reason: pain Referrals: PRIMARY CARE, [Primary Care Provider] - 3-5 Days Forms: Work/School Release Form(ED) Time of Disposition: 05:46
== END 2021-05-20 06:29 | disposition home or self-care (01) ==
LOC: ED 02:27
DX: M79.18 Myalgia, other site (principal); I12.0 Hypertensive chronic kidney disease with stage 5 chronic kidney disease or end stage renal disease; N18.6 End stage renal disease; E11.8 Type 2 diabetes mellitus with unspecified complications; F31.9 Bipolar disorder, unspecified; F20.9 Schizophrenia, unspecified; G20 Parkinson's disease; Z88.8 Allergy status to other drugs, medicaments and biological substances
CPT/HCPCS: 99282

== ENCOUNTER 2021-05-21 22:11 | Emergency (ER) | payer MEDICARE ==
[2021-05-21 23:05] VITALS: BP 118/63
[2021-05-22 00:16] LABS: Hematocrit 46.3 % (35.5-45.6); Hemoglobin 15.2 gm/dl (11.8-15.2); Mean Corpuscular HGB Conc 33 % (32-34); Mean Corpuscular Volume 94 fl (84-94); Platelet Count 225 K/mm3 (140-440); Red Blood Count 4.94 M/mm3 (3.65-5.03); Red Cell Distribution Width 14.4 % (13.2-15.2)
[2021-05-22 00:33] LABS: Alanine Aminotransferase 7 units/L (7-56); Albumin 4.1 g/dL (3.9-5); BUN/Creatinine Ratio 7; Blood Urea Nitrogen 5 mg/dL (9-20); Calcium 9.2 mg/dL (8.4-10.2); Hemolysis Index 5
== END 2021-05-21 23:45 | disposition left against medical advice (07) ==
LOC: ED 22:11
DX: Z13.30 Encounter for screening examination for mental health and behavioral disorders, unspecified (principal); Z53.21 Procedure and treatment not carried out due to patient leaving prior to being seen by health care provider
CPT/HCPCS: 36415; 80053; 85027

== ENCOUNTER 2021-05-22 20:56 | Emergency (ER) | payer MEDICARE | END 2021-05-22 21:00 | disposition left against medical advice (07) | LOC: ED 20:56 | DX: F09 Unspecified mental disorder due to known physiological condition (principal); Z53.21 Procedure and treatment not carried out due to patient leaving prior to being seen by health care provider ==

== ENCOUNTER 2021-06-04 23:48 | Emergency (ER) | payer MEDICARE | END 2021-06-05 02:54 | disposition left against medical advice (07) | LOC: ED 23:48 | DX: Z00.00 Encounter for general adult medical examination without abnormal findings (principal); Z53.21 Procedure and treatment not carried out due to patient leaving prior to being seen by health care provider ==

== ENCOUNTER 2021-06-05 04:33 | Emergency (ER) | payer MEDICARE ==
[2021-06-05 04:44] VITALS: BP 152/70
== END 2021-06-05 06:15 | disposition left against medical advice (07) ==
LOC: ED 04:33
DX: R53.81 Other malaise (principal); Z53.21 Procedure and treatment not carried out due to patient leaving prior to being seen by health care provider

== ENCOUNTER 2021-06-06 05:45 | Emergency (ER) | payer MEDICARE ==
[2021-06-06 05:53] VITALS: BP 115/70
== END 2021-06-06 07:50 | disposition left against medical advice (07) ==
LOC: ED 05:45
DX: R51.9 Headache, unspecified (principal); Z53.21 Procedure and treatment not carried out due to patient leaving prior to being seen by health care provider

== ENCOUNTER 2021-06-23 18:08 | Emergency (ER) | payer MEDICARE | END 2021-06-23 19:00 | disposition left against medical advice (07) | LOC: ED 18:08 | DX: Z76.0 Encounter for issue of repeat prescription (principal); Z53.21 Procedure and treatment not carried out due to patient leaving prior to being seen by health care provider ==

== ENCOUNTER 2021-08-27 22:47 | Emergency (ER) | payer MEDICARE ==
--- NOTE | 2021-08-28 00:47 | Emergency Department Report ---
ED General Adult HPI - General Chief complaint: Psych Stated complaint: psych Time Seen by Provider: 08/28/21 00:41 Source: patient, EMS ( EMS documentation not available at time of chart dictation ), RN notes reviewed, old records reviewed Mode of arrival: Stretcher - History of Present Illness Initial comments: The patient is a 41-year-old gentleman with a history of homelessness and psychiatric disease, who was brought to the hospital by emergency medical services. Apparently, the patient was walking around talking to himself. The patient denies physical pain. The patient makes no complaint of homicidality, suicidality or overdose. The patient endorses no complaints at this time. -: This evening - Related Data Previous Rx's Medication Instructions Recorded Last Taken Type FLUoxetine HCL [FLUoxetine] 20 mg PO DAILY #7 tablet 10/04/19 Unknown Rx OLANzapine [Zyprexa] 10 mg PO BID #14 tablet 10/04/19 Unknown Rx hydrOXYzine PAMOATE [Vistaril] 50 mg PO Q12H #14 capsule 10/04/19 Unknown Rx traZODone [Desyrel] 100 mg PO QHS #7 tablet 10/04/19 Unknown Rx Ondansetron [Zofran Odt] 4 mg PO Q8HR PRN #10 tab.rapdis 12/05/19 Unknown Rx Ondansetron [Zofran Odt] 4 mg PO Q6H #20 tab.rapdis 10/30/20 Unknown Rx cephALEXin [Keflex] 500 mg PO TID #28 cap 12/17/20 Unknown Rx FLUoxetine HCL [Prozac] 20 mg PO DAILY 30 Days #30 capsule 12/18/20 Unknown Rx traZODone [Desyrel] 50 mg PO QHS 30 Days #30 tab 12/18/20 Unknown Rx OLANZapine [Olanzapine] 5 mg PO DAILY #30 tablet 04/16/21 Unknown Rx Acetaminophen [Acetaminophen 8 650 mg PO QID PRN #30 tablet.er 04/29/21 Unknown Rx Hour] Ibuprofen [Motrin 800 MG tab] 800 mg PO Q8HR PRN #30 tablet 05/20/21 Unknown Rx Allergies Allergy/AdvReac Type Severity Reaction Status Date / Time divalproex sodium Allergy Unknown Verified 05/20/21 02:29 [From Depakote] quetiapine [From Seroquel] Allergy Unknown Verified 05/20/21 02:29 risperidone [From Risperdal] Allergy Unknown Verified 05/20/21 02:29 ED Review of Systems ROS: Stated complaint: AMS Other details as noted in HPI Constitutional: see HPI Eyes: as per HPI ENT: as per HPI Respiratory: see HPI Cardiovascular: as per HPI Endocrine: see HPI Gastrointestinal: as per HPI Genitourinary: as per HPI Musculoskeletal: as per HPI Skin: as per HPI Neurological: as per HPI Psychiatric: as per HPI Hematological/Lymphatic: as per HPI ED Past Medical Hx - Past Medical History Previous Medical History?: Yes Hx Hypertension: Yes Hx Diabetes: Yes Hx Renal Disease: Yes (esrd) Hx Psychiatric Treatment: Yes (bipolar, schizophrenia) Additional medical history: Parkinsons disease - Surgical History Past Surgical History?: No - Social History Smoking Status: Current Every Day Smoker Substance Use Type: None - Medications Home Medications: Home Medications Medication Instructions Recorded Confirmed Last Taken Type FLUoxetine HCL [FLUoxetine] 20 mg PO DAILY #7 tablet 10/04/19 Unknown Rx OLANzapine [Zyprexa] 10 mg PO BID #14 tablet 10/04/19 Unknown Rx hydrOXYzine PAMOATE [Vistaril] 50 mg PO Q12H #14 capsule 10/04/19 Unknown Rx traZODone [Desyrel] 100 mg PO QHS #7 tablet 10/04/19 Unknown Rx Ondansetron [Zofran Odt] 4 mg PO Q8HR PRN #10 tab.rapdis 12/05/19 Unknown Rx Ondansetron [Zofran Odt] 4 mg PO Q6H #20 tab.rapdis 10/30/20 Unknown Rx cephALEXin [Keflex] 500 mg PO TID #28 cap 12/17/20 Unknown Rx FLUoxetine HCL [Prozac] 20 mg PO DAILY 30 Days #30 capsule 12/18/20 Unknown Rx traZODone [Desyrel] 50 mg PO QHS 30 Days #30 tab 12/18/20 Unknown Rx OLANZapine [Olanzapine] 5 mg PO DAILY #30 tablet 04/16/21 Unknown Rx Acetaminophen [Acetaminophen 8 650 mg PO QID PRN #30 tablet.er 04/29/21 Unknown Rx Hour] Ibuprofen [Motrin 800 MG tab] 800 mg PO Q8HR PRN #30 tablet 05/20/21 Unknown Rx ED Physical Exam - General General appearance: in no apparent distress - Head Head exam: Present: atraumatic, normocephalic - Eye Eye exam: Present: normal appearance - ENT ENT exam: Present: normal exam, normal orophraynx, mucous membranes moist, normal external ear exam - Neck Neck exam: Present: normal inspection, full ROM. Absent: tenderness, meningismus - Respiratory Respiratory exam: Present: normal lung sounds bilaterally. Absent: respiratory distress, wheezes, rales, rhonchi, stridor, decreased breath sounds - Cardiovascular Cardiovascular Exam: Present: regular rate, normal rhythm, normal heart sounds. Absent: bradycardia, tachycardia, irregular rhythm, systolic murmur, diastolic murmur, rubs, gallop - GI/Abdominal GI/Abdominal exam: Present: soft. Absent: distended, tenderness, guarding, rebound, rigid, pulsatile mass - Rectal Rectal exam: Present: deferred - Extremities Exam Extremities exam: Present: normal inspection, full ROM, other (2+ pulses noted in the bilateral upper and lower extremities. There is no palpable cord. negative Homans sign. Muscular compartments are soft. The pelvis is stable.). Absent: pedal edema, calf tenderness - Back Exam Back exam: Present: normal inspection. Absent: tenderness, CVA tenderness (R), CVA tenderness (L), paraspinal tenderness, vertebral tenderness - Neurological Exam Neurological exam: Present: alert, normal gait, other (There is no facial droop. Ambulatory with a steady gait.) - Psychiatric Psychiatric exam: Present: flat affect. Absent: homicidal ideation, suicidal ideation - Skin Skin exam: Present: warm, dry, intact, normal color. Absent: rash ED Course Vital Signs 08/27/21 08/27/21 08/28/21 22:51 22:58 03:01 Temperature 98 F 98.3 F Pulse Rate 74 59 L Respiratory 16 16 Rate Blood Pressure 118/72 Blood Pressure 95/42 [Right] O2 Sat by Pulse 100 98 94 Oximetry ED Medical Decision Making - Lab Data Vital Signs 08/27/21 08/27/21 08/28/21 22:51 22:58 03:01 Temperature 98 F 98.3 F Pulse Rate 74 59 L Respiratory 16 16 Rate Blood Pressure 118/72 Blood Pressure 95/42 [Right] O2 Sat by Pulse 100 98 94 Oximetry - Medical Decision Making Differential diagnosis, including but not limited to: Encounter for medical screening exam, encounter for behavioral health screening exam, homelessness Assessment and plan: 41-year-old gentleman with a known history of homelessness, who was cooperative, has not endorsed homicidality or suicidality, as documented is being ANO x3, now sleeping comfortably on his chair, and in no acute distress. Patient has not endorsed any acute medical complaints to myself. He has not endorsed any homicidality or suicidality. Discharge with outpatient follow-up Critical care attestation.: If time is entered above; I have spent that time in minutes in the direct care of this critically ill patient, excluding procedure time. ED Disposition Clinical Impression: Encounter for medical screening examination, Encounter for behavioral health screening Disposition: HOME / SELF CARE / HOMELESS Is pt being admited?: No Does the pt Need Aspirin: No Condition: Stable Additional Instructions: Please continue current outpatient medications. Please follow-up with your outpatient primary care doctor within the next month. Please follow-up with your outpatient psychiatrist within the next week. Please return to the emergency room right away with new pain, worsened pain, migration of pain, projectile vomiting, change in mental status, confusion, inability tolerate liquid feeds, new, worsened or different symptoms not present on the initial emergency room evaluation Referrals: DOUG BARRON MD [Primary Care Provider] - 3-5 Days [facility] [Outside] - 3-5 Days [facility] [Outside] - 3-5 Days
[2021-08-28 03:30] VITALS: BP 95/42
== END 2021-08-28 06:48 | disposition home or self-care (01) ==
LOC: ED 22:47
DX: Z00.00 Encounter for general adult medical examination without abnormal findings (principal); Z13.30 Encounter for screening examination for mental health and behavioral disorders, unspecified; Z88.8 Allergy status to other drugs, medicaments and biological substances
CPT/HCPCS: 99283